=== PATIENT | male | born 1955 | race Two or more races ===

== ENCOUNTER 2019-12-27 03:55 | Inpatient (IN) | payer MEDICAID ==
[2019-12-27] VITALS (57 sets, daily range): BP systolic 74–127; BP diastolic 34–71
[~2019-12-27] VITALS: Ht 167.6 cm; Wt 111.6 kg
--- NOTE | 2019-12-27 04:00 | NUR ---
ED Nurse Note: Pt brought in by [facility] from [facility], staff reports pt with increased altered mental status as well as respiratory distress, pt usually not on O2, pt found spo2 86% on RA. Pt placed on 15L NON REBREATHER, ERMD at bedside, pt placed on electronic device monitor. ERMD placing R IJ triple lumen catheter, pt tolerated well, IV fluids uinfusing per order, pt placed in trendelenburg per ERMD, Pt with indwelling blue from facility, 18G L AC from [facility] patent. Will continue to monitor
[2019-12-27] MEDS ORDERED: Levophed 4mg/4mL Inj IV ONE ×2 (04:07→16:00)
[2019-12-27] MEDS ORDERED: PANTOPRAZOLE SO20 MG ORAL (04:21)
[2019-12-27] MEDS ORDERED: GLUCERNA1 EACH PO (04:21)
[2019-12-27] MEDS ORDERED: ACETAMINOPHEN500 M3 ORAL (04:21)
[2019-12-27] MEDS ORDERED: QUINAPRIL HCL40 MG PO (04:21)
[2019-12-27] MEDS ORDERED: INSULIN CHARG5 UNITS SUBQ (04:21)
[2019-12-27] MEDS ORDERED: ACETAZOLAMIDE125 MG ORAL (04:21)
[2019-12-27] MEDS ORDERED: ACTOS45 MG ORAL (04:21)
[2019-12-27] MEDS ORDERED: AMLODIPINE BES2.5 MG ORAL (04:21)
[2019-12-27] MEDS ORDERED: VITAMIN C250 MG ORAL (04:21)
[2019-12-27] MEDS ORDERED: LIPITOR80 MG ORAL (04:21)
[2019-12-27] MEDS ORDERED: TERAZOSIN HCL2 MG PO (04:21)
[2019-12-27] MEDS ORDERED: ELIQUIS2.5 MG PO (04:21)
[2019-12-27] MEDS ORDERED: ZINC30 M1 ORAL (04:21)
[2019-12-27] MEDS ORDERED: LACTULOSE10 GM/155 PO (04:21)
[2019-12-27] MEDS ORDERED: VITAMIN D310 MCG ORAL (04:21)
[2019-12-27] MEDS ORDERED: JANUVIA100 MG ORAL (04:21)
[2019-12-27] MEDS ORDERED: GLIPIZIDE10 MG PO (04:21)
[2019-12-27] MEDS ORDERED: cefTRIAXone 2 GM in NS 110 ML IV ONE (04:30)
[2019-12-27] MEDS ORDERED: Vancomycin 1 GM in NS 275 ML IV ONE (04:30)
[2019-12-27] MEDS ORDERED: Azithromycin 500 MG in NS 275 ML IV ONE (04:30)
[2019-12-27 04:47] LABS: HEMATOCRIT 41.5 % (42.0-52.0); HEMOGLOBIN 13.7 G/DL (14.2-18.0); MEAN CORPUSCULAR VOLUME 92 FL (80-99); PLATELET COUNT 168 K/UL (150-450); RED BLOOD COUNT 4.51 M/UL (4.70-6.10)
--- NOTE | 2019-12-27 04:48 | Emergency Room Report ---
History of Present Illness General Chief Complaint: Upper Respiratory Illness Source: Patient Present Illness HPI Patient is a 64-year-old male with past medical history of insulin-dependent diabetes, hypertension, lower extremity DVT on Eliquis brought in by ambulance from nursing facility for hypoxia and hypotension. According to EMS, initial blood pressure was 59/32mmHG on scene. Patient was also noted to be hypoxic in the 80s on room air. Patient was last seen normal yesterday at 7 PM. On EMS arrival, patient was placed on nonrebreather facemask with increased oxygenation. Furthermore he was given a NS 400 cc bolus with increase of blood pressure Patient remains ANO x1 only According to EMS, patient was recently diagnosed with COVID pneumonia at [facility]. History is limited secondary to patient's clinical status The patient's symptoms were gradual onset, severity was moderate, duration since 2 WEEKS. Past medical history: DMII, LE DVT, HTN, HLD, COVID-19 Past surgical history: UNABLE TO OBTAIN Smoking: UNABLE TO OBTAIN Alcohol use: UNABLE TO OBTAIN Drug use: UNABLE TO OBTAIN Review of systems: UNABLE TO OBTAIN 14 point Review of Systems is otherwise negative except per HPI Physical Exam: GENERAL: Awake_alert_ toxic, SEVERE acute distress Spo2 80% on RA -ABNORMAL EYES: Extraocular muscles are intact. Conjunctivae clear. Lids without swelling ENT: External nose and ear normal_in_appearance. Oropharynx clear. Head_ atraumatic, Moist_oral_mucosa NECK: No JVD. No meningismus. No thyromegaly. Supple. Trachea midline RESP: Increased respiratory effort. Tachypnea. Symmetric rise. No stridor. Course breath sounds bilaterally CARDIAC: Tachycardic. Regular rhythm on_auscultation No_significant pedal edema. BLE venous stasis ABDOMEN: Soft. obese. Nondistended. Nontender_No_rebound_or_guarding. No pulsatile mass Indwelling blue. No urine MSK: Normal muscle tone, without rigidity. Extremities without asymmetric deformity or swelling. SKIN: Warm and dry. No visible cyanosis or pallor NEUROLOGIC: Alert, oriented x1. Motor_and_sensation_grossly_intact. No truncal ataxia. Gait_normal Psych: Normal mood and affect, normal judgment and insight - COORDINATION OF CARE Case was discussed with: Patient , Patient's Physician Any labs and imaging that were ordered were interpreted as part of the medical decision making: Medical Decision Making/Plan: Differential includes COVID pneumonia, bronchitis, CHF, pulmonary edema, pulmonary embolism, pleural effusion among others. Patient is chronically ill-appearing. Hypotensive. Hypoxic on room air. Bedside echocardiogram shows depressed ejection fraction. No cardiac tamponade. No RV dilation or septal bowing to indicate massive PE. No AAA or aortic dissection on gross exam. Accu-Chek was within normal limits. Exam is limited secondary to patient's altered mental status. He is grossly neuro intact and moving all extremities. I did review patient's previous medical records that EMS brought from the nursing home [facility] He was hospitalized for acute hypoxic respiratory failure with severe COVID-19 pneumonia. He was also noted to have an STEMI type I versus type II and placed on heparin drip. Last COVID test on 12/08/2019 was positive Last creatinine level on 12/21/2019 was 1.8 Due to hypotension and presumed dehydration, patient was given another NS 400 cc bolus to reach euvolemia. Due to COVID positive diagnosis, the goal will be to keep the patient euvolemic. Patient has refused septic NS 30 cc/kg bolus due to hx of COVID pneumonia. Right IJ central line was placed for administration of Levophed vasopressor. Emergent consent was obtained. Laboratory evaluation is concerning for leukocytosis of 16and new onset renal failure with creatinine of 9.6 today. Last creatinine on file was 1.8 six days ago. BNP is also elevated at 1921. Due to septic shock, patient is unable to be diuresed. Troponin is 0.079. Suspect global hypoperfusion 2/2 NSTEMI. Rectal aspirin was given. Doubt massive PE as EKG has no R sided heart strain. Initial EKG showed sinus tachycardia with lots of artifact in lead III. No acute ST elevation AK is identified. No reciprocal changes. A repeat EKG performed within 40 minutes again shows nonspecific ST changes with Q waves in the inferior leads. Again no acute STEMI is identified. CXR shows vascular congestion, interstitial edema and L lobar pneumonia. Seems to be consistent with pneumonia with possible concomitant CHF. Based on [the patients PSI/PORT score], has high enough mortality risk that inpatient admission for IV antibiotics and clinical observation is most appropriate. Will admit to ICU Dr Mendoza At the time of admission, patient was weaned down to 6L NC. Furthermore, his BP and therefore his mental status have improved drastically here. - CRITICAL CARE TIME - I spent 120 minutes of critical care time. This time excludes any separately billable procedures. Organ systems at risk include: Pulmonary / respiratory Treatments/Evaluations: Emergent and rapid respiratory assessment and management with continuous monitoring. Advanced airway equipment at the ready, while the patient's respiratory symptoms were stabilized. Given the patients presentation with pneumonia with hypoxic respiratory failure , there existed the potential for imminent deterioration in the patient's condition due to respiratory compromise. Organ systems at risk for failure without immediate intervention include pulmonary / respiratory. This time was spent reviewing the patients records, reviewing vital signs, reassessing the patients clinical status, discussing the case and care with staff and consultants, and performing high-complexity medical decision making. I considered the possibility of Bipap vs intubation , but at this time the patient is protecting their airway and maintaining their saturation on supplemental oxygen so will defer intubation at this time, although they will be closely monitored for any further deterioration. 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 COVID-19 Screening: Positive COVID-19 COVID-19 Testing Source: meter changes records clerk Nursing Documentation-PMH Hx Cardiac Problems: Yes - DVT; cardiomyopathy Hx Hypertension: Yes Hx Diabetes: Yes Physical Exam Vital Signs Date Time Temp Pulse Resp B/P (MAP) Pulse Ox O2 Delivery O2 Flow Rate FiO2 12/27/19 03:47 100 22 84/59 (67) 95 Non-Rebreather 15.0 Sp02 EP Interpretation: reviewed, normal Medical Decision Making Diagnostic Impression: Primary Impression: Pneumonia due to COVID-19 virus Additional Impressions: Lobar pneumonia Septic shock NSTEMI (non-ST elevated myocardial infarction) Renal failure Hyponatremia CHF (congestive heart failure) HTN (hypertension) HLD (hyperlipidemia) Diabetes Obesity Sepsis with acute hypoxic respiratory failure EKG Diagnostic Results CANDIS Scribnikole Text 12-lead EKG (interpreted by me) Time: 0 356 Indication: Rhythm analysis Tracing visualized and Interpreted by me. Rhythm: Sinus tachycardia Rate: 111 bpm QTc: 416 Morphology: Nonspecific Impression: Nonspecific ST changes in lead III. Q waves in inferior leads. T wave inversion in lead V1. No acute ST elevation AK 12-lead EKG (interpreted by me) Time: 0 435 Indication: Rhythm analysis Tracing visualized and Interpreted by me. Rhythm: Sinus tachycardia Rate: 103 bpm QTc: 427 Morphology: Nonspecific Impression: Nonspecific ST changes in lead III. Q waves in inferior leads. T wave inversion in lead V1. No acute ST elevation AK Rhythm Strip Diag. Results Rhythm Strip Time: 03:56 EP Interpretation: yes Rhythm: NSR, no PVC's, no ectopy Chest X-Ray Diagnostic Results Chest X-Ray Diagnostic Results : CANDIS Ramirez Text Chest X-Ray: Views: Portable 1 view(s) Indication: Sepsis, pneumonia] Findings: Cardiomegaly, diffuse bilateral interstitial edema, pulmonary vascular congestion Impression: Cardiomegaly versus COVID-19, R IJ no pneuothorax The X-ray(s) were independently viewed and interpreted contemporaneously Electronically signed by Sil berman DO Reevaluation Time: 05:35 Last Vital Signs Date Time Temp Pulse Resp B/P (MAP) Pulse Ox O2 Delivery O2 Flow Rate FiO2 /16/20 03:58 100 22 89/50 (63) 95 Non-Rebreather 15.0 Status: improved Disposition: ADMITTED INPATIENT Admit Decision Time: 05:00 Condition: Critical Referrals: NOT CHOSEN IPA/,REFERRING (PCP) Sil Lizama D.O. Dec 27, 2019 04:48
[2019-12-27 05:08] LABS: ANION GAP 13 mmol/L (5-15); BLOOD UREA NITROGEN 176 mg/dL (7-18); CALCIUM 8.8 MG/DL (8.5-10.1); CARBON DIOXIDE 21 MMOL/L (21-32); CHLORIDE 96 MMOL/L (98-107); CREATININE 9.6 MG/DL (0.55-1.30); POTASSIUM 4.2 MMOL/L (3.5-5.1); SODIUM 130 MMOL/L (136-145)
[2019-12-27 05:12] LABS: ALANINE AMINOTRANSFERASE 43 U/L (12-78); ALBUMIN/GLOBULIN RATIO 0.4 (1.0-2.7); ALKALINE PHOSPHATASE 85 U/L (46-116); ASPARTATE AMINO TRANSFERASE 30 U/L (15-37); BILIRUBIN,DIRECT 0.5 MG/DL (0.0-0.3); BILIRUBIN,TOTAL 1.1 MG/DL (0.2-1.0); PHOSPHORUS 9.1 MG/DL (2.5-4.9)
[2019-12-27] MEDS ORDERED: dexAMETHasone 10mg/ml Inj IV ONE (05:15)
[2019-12-27 06:06] LABS: APPEARANCE,URINE CLOUDY; BILIRUBIN, URINE NEGATIVE (NEGATIVE); COLOR,URINE YELLOW; GLUCOSE, URINE (UA) 2+ (NEGATIVE); KETONES,URINE NEGATIVE (NEGATIVE); NITRITE,URINE NEGATIVE (NEGATIVE); PROTEIN,URINE 1+ (NEGATIVE)
[2019-12-27 06:07] LABS: LEUKOCYTE ESTERASE ,URINE 1+ (NEGATIVE); UROBILINOGEN,URINE NORMAL MG/DL (0.0-1.0)
--- NOTE | 2019-12-27 06:22 | NUR ---
NURSE NOTES: Called Dr. Mendoza and left message regarding admission orders.
--- NOTE | 2019-12-27 06:23 | NUR ---
NURSE NOTES: Alison GEORGE RN called to give report. awaiting pt arrival.
--- NOTE | 2019-12-27 06:26 | Diagnostic Imaging Report ---
EXAM: XR Chest, 1 View CLINICAL HISTORY: SOB TECHNIQUE: Frontal view of the chest. COMPARISON: No relevant prior studies available. FINDINGS: Lungs: Patchy bilateral airspace opacities concerning for pneumonia in the appropriate clinical setting. Pleural space: No pleural effusion. No pneumothorax. Heart: Unremarkable. No cardiomegaly. Bones/joints: Unremarkable. Tubes, lines and devices: Right IJ central line terminates within the distal SVC. IMPRESSION: 1. Right IJ central line terminates within the distal SVC. 2. Patchy bilateral airspace opacities concerning for pneumonia in the appropriate clinical setting.
--- NOTE | 2019-12-27 06:40 | NUR ---
NURSE NOTES: pt brought up by ER. Pt is lethargic upon admission, arousal to light tactile stimuli. pt is connected to radiation monitor showing sinus tach. pt is on non rebreather 12L sating at 98% O2, no other acute resp distress noted. bed is low, locked, armed, call light within easy reach, bed rails up times 3. 18 G IV noted L AC, Central line R IJ noted running levo 15MCS.
--- NOTE | 2019-12-27 06:40 | NUR ---
TRANSFER TO FLOOR: Patient transferred to as ordered, per Dr Mendoza. Report given to CHRISTINA Umana. Belongings and medications given to . Family and or S/O informed of transfer.
--- NOTE | 2019-12-27 06:56 | NUR ---
NURSE NOTES: Doctor Mendoza called back to give admitting orders.
[2019-12-27] MEDS ORDERED: Acetaminophen 500mg (ES) tab ORAL PRN (07:00)
--- NOTE | 2019-12-27 07:20 | NUR ---
NURSE HAND-OFF REPORT: Latest Vital Signs: Temperature 97.7 , Pulse 102 , B/P 107 /55 , Respiratory Rate 22 , O2 SAT 99 , Non-Rebreather, O2 Flow Rate 6.0 . Vital Sign Comment: [STABLE ] EKG Rhythm: ST Rhythm change?: NO MD Notified?: - MD Response: Latest Cook Fall Score: Fall Risk: Safety Measures: Call light , Bed Alarm , Side Rails , Bed position . Fall Precautions: BED RAILS UP TIMES 3, BED ARMED, LOCKED. Report given to [MICHELLE GARCIA RN].
--- NOTE | 2019-12-27 07:30 | NUR ---
NURSE NOTES: Patient received by Mannie VASQUEZ. Patient stable at this time with VS 95/57 HR 103 RR 20 on NRB 15L o2 100% and T 97.8F. Patient AOx1 to self. Able to say his name but cannot answer further questions. RR even and unlabored. No s/sx of distress or pain. FLACC 0. Pupils HEATHER at 3. Triple lumen cath dressing to be changed today but patent and intact. Levophed infusing at 20mcg and Cardiac sounds normal. Pulmonary sounds diminished but when coughs sounds rhonchus. GI sounds normoactive. Parker draining yellow urine at 50mLs per hour. Unable to assess strength. Radial pulses bounding. Pedal pulses weak with LT leg pitting edema +2 and RT leg edema +1. Also noted purple discoloration to LT calf reaching ankle. Side rails upx3, call light within reach bed low and locked. Will continue to monitor.
--- NOTE | 2019-12-27 07:42 | NUR ---
NURSE NOTES: Called and left a note a message to Dr Morales regarding Levophed order. No response from Dr Morales yet. Levophed bag from ER was empty. New Levophed was overridden by charge nurse and continued at 20mcg/min. Will call Dr Morales again for Levophed order.
--- NOTE | 2019-12-27 08:00 | NUR ---
NURSE NOTES: Called Dr. Ash and per voicemail, Dr. Vinson covering. Contacted Dr. Vinson and received orders. Will contact Dr. Morales for Levophed order.
--- NOTE | 2019-12-27 08:33 | NUR ---
NURSE NOTES: Called and left a message to Dr Null regarding ABG result. Awaiting call back for new orders. RT place Ventri mask 55% 14L on the patient. Addendum: 12/27/19 at 1522 by MICHELLE BLANCHARD RN RN NURSE NOTES: Called and left a message to Dr Null regarding ABG result. Awaiting call back for new orders. RT placed Ventri mask 55% 14L on the patient.
[2019-12-27] MEDS ORDERED: Sodium Bicarbonate 50ml Carp IV SCH (08:45)
[2019-12-27] MEDS ORDERED: Norepinephrine Bitartrate 8 MG in D5W 500ml 550 ML IV SCH (09:00)
--- NOTE | 2019-12-27 09:21 | Diagnostic Imaging Report ---
EXAM: XR Chest, 1 View CLINICAL HISTORY: SOB TECHNIQUE: Frontal view of the chest. COMPARISON: No relevant prior studies available. FINDINGS/IMPRESSION: Right IJ central venous catheter terminates in the superior vena cava. Patchy airspace opacity throughout the left lower lung field, consistent with infiltrate. Follow-up chest radiograph recommended. No pleural effusion or pneumothorax. Cardiomegaly.
[2019-12-27] MEDS ORDERED: Pantoprazole Inj IVP SCH (10:00)
[2019-12-27] MEDS: Eliquis 2.5mg tablet ORAL SCH ×2 (10:00→18:15)
--- NOTE | 2019-12-27 10:03 | NUR ---
NURSE NOTES: Bicarbonate pushed. Both syringes separately scanned and given but after administration it was noted that one syringe said 7.5% and the other 8.4%. Pharmacy called and notified and stated that both concentrations do scan under same order. Also stated that there had been a shortage of the 8.4% and 7.5% ordered as backup.
--- NOTE | 2019-12-27 10:27 | Critical Care Progress Note ---
Assessment/Plan Assessment/Plan Impression Multifocal pneumonia Hypoxemic respiratory failure Toxic metabolic encephalopathy Leukocytosis Metabolic acidosis Acidemia Hyponatremia Acute on chronic renal failure Severe protein calorie malnutrition Elevated troponin, possible non-STEMI Plan IV hydration Renal evaluation Empiric antibiotics Titrate oxygen Arterial gases noted Bicarb infusion Monitor for aspiration medications/laboratory data/nursing notes/ICU care reviewed in detail note reviewed and edited care discussed with RN and RT ICU time spent >40 minutes Critical Care - Subjective Interval Events: Has to follow-up for pulmonary. Patient with reduced mental status and hypotension Patient with high oxygen need ROS Limited/Unobtainable: Yes Condition: critical EKG Rhythm: Sinus Tachycardia Critical Care - Objective CXR: FINDINGS/IMPRESSION: Right IJ central venous catheter terminates in the superior vena cava. Patchy airspace opacity throughout the left lower lung field, consistent with infiltrate. Follow-up chest radiograph recommended. No pleural effusion or pneumothorax. Cardiomegaly. Last 24 Hour Vital Signs Date Time Temp Pulse Resp B/P (MAP) Pulse Ox O2 Delivery O2 Flow Rate FiO2 12/27/19 10:00 102 22 107/55 (72) 99 12/27/19 09:30 102 22 107/55 (72) 99 12/27/19 09:00 102 22 107/55 (72) 99 12/27/19 09:00 100 Venturi Mask 14.0 55 12/27/19 08:30 55 12/27/19 08:30 102 22 107/55 (72) 99 12/27/19 08:00 102 22 107/55 (72) 99 12/27/19 07:42 88/54 12/27/19 07:30 102 22 107/55 (72) 99 12/27/19 07:00 97.7 104 23 82/44 (57) 100 12/27/19 06:40 97.7 102 22 107/55 (72) 99 12/27/19 06:40 98.8 106 18 106/72 99 Non-Rebreather 6.0 12/27/19 06:29 12.0 12/27/19 06:15 98.6 108 26 110/68 100 Non-Rebreather 6.0 12/27/19 05:19 68/50 12/27/19 05:15 98.8 110 26 101/61 100 Non-Rebreather 15.0 12/27/19 05:00 98.8 104 22 91/48 100 Non-Rebreather 15.0 12/27/19 04:45 98.8 108 22 81/45 100 Non-Rebreather 15.0 12/27/19 04:30 98.8 102 22 74/40 98 Non-Rebreather 15.0 12/27/19 04:15 98.8 100 22 76/34 98 Non-Rebreather 15.0 12/27/19 04:00 98.8 106 22 89/50 100 Non-Rebreather 15.0 12/27/19 04:00 100 22 Non-Rebreather 15.0 12/27/19 03:58 100 22 89/50 (63) 95 Non-Rebreather 15.0 12/27/19 03:47 100 22 84/59 (67) 95 Non-Rebreather 15.0 Labs: Laboratory Tests Test 12/27/19 03:50 12/27/19 04:28 12/27/19 05:30 12/27/19 08:19 White Blood Count 16.0 K/UL (4.8-10.8) H Red Blood Count 4.51 M/UL (4.70-6.10) L Hemoglobin 13.7 G/DL (14.2-18.0) L Hematocrit 41.5 % (42.0-52.0) L Mean Corpuscular Volume 92 FL (80-99) Mean Corpuscular Hemoglobin 30.4 PG (27.0-31.0) Mean Corpuscular Hemoglobin Concent 33.0 G/DL (32.0-36.0) Red Cell Distribution Width 13.0 % (11.6-14.8) Platelet Count 168 K/UL (150-450) Mean Platelet Volume 7.9 FL (6.5-10.1) Neutrophils (%) (Auto) % (45.0-75.0) Lymphocytes (%) (Auto) % (20.0-45.0) Monocytes (%) (Auto) % (1.0-10.0) Eosinophils (%) (Auto) % (0.0-3.0) Basophils (%) (Auto) % (0.0-2.0) Differential Total Cells Counted 100 Neutrophils % (Manual) 91 % (45-75) H Lymphocytes % (Manual) 2 % (20-45) L Monocytes % (Manual) 7 % (1-10) Eosinophils % (Manual) 0 % (0-3) Basophils % (Manual) 0 % (0-2) Band Neutrophils 0 % (0-8) Platelet Estimate Adequate Platelet Morphology Normal Prothrombin Time 11.5 SEC (9.30-11.50) Prothromb Time International Ratio 1.0 (0.9-1.1) Activated Partial Thromboplast Time 29 SEC (23-33) Sodium Level 130 MMOL/L (136-145) L Potassium Level 4.2 MMOL/L (3.5-5.1) Chloride Level 96 MMOL/L (98-107) L Carbon Dioxide Level 21 MMOL/L (21-32) Anion Gap 13 mmol/L (5-15) Blood Urea Nitrogen 176 mg/dL (7-18) H Creatinine 9.6 MG/DL (0.55-1.30) H Estimat Glomerular Filtration Rate 5.5 mL/min (>60) Glucose Level 194 MG/DL (74-106) H Lactic Acid Level 1.00 mmol/L (0.4-2.0) Calcium Level 8.8 MG/DL (8.5-10.1) Phosphorus Level 9.1 MG/DL (2.5-4.9) H Magnesium Level 2.9 MG/DL (1.8-2.4) H Total Bilirubin 1.1 MG/DL (0.2-1.0) H Direct Bilirubin 0.5 MG/DL (0.0-0.3) H Aspartate Amino Transf (AST/SGOT) 30 U/L (15-37) Alanine Aminotransferase (ALT/SGPT) 43 U/L (12-78) Alkaline Phosphatase 85 U/L (46-116) Troponin I 0.079 ng/mL (0.000-0.056) Pro-B-Type Natriuretic Peptide 1921 pg/mL (0-125) H Total Protein 7.2 G/DL (6.4-8.2) Albumin 2.0 G/DL (3.4-5.0) L Globulin 5.2 g/dL Albumin/Globulin Ratio 0.4 (1.0-2.7) L Lipase 374 U/L (73-393) Arterial Blood pH 7.292 (7.350-7.450) 7.244 (7.350-7.450) Arterial Blood Partial Pressure CO2 35.0 mmHg (35.0-45.0) 41.6 mmHg (35.0-45.0) Arterial Blood Partial Pressure O2 138.4 mmHg (75.0-100.0) H 137.7 mmHg (75.0-100.0) H Arterial Blood HCO3 16.5 mmol/L (22.0-26.0) *L 17.6 mmol/L (22.0-26.0) *L Arterial Blood Oxygen Saturation 98.3 % (95-100) 98.3 % (95-100) Arterial Blood Base Excess -9.0 (-2-2) L -9.3 (-2-2) *L Vinay Test Positive Positive Urine Color Yellow Urine Appearance Cloudy Urine pH 5.0 (4.5-8.0) Urine Specific [place] 1.025 (1.005-1.035) Urine Protein 1+ (NEGATIVE) H Urine Glucose (UA) 2+ (NEGATIVE) H Urine Ketones Negative (NEGATIVE) Urine Blood 4+ (NEGATIVE) H Urine Nitrite Negative (NEGATIVE) Urine Bilirubin Negative (NEGATIVE) Urine Urobilinogen Normal MG/DL (0.0-1.0) Urine Leukocyte Esterase 1+ (NEGATIVE) H Urine RBC 40-60 /HPF (0 - 0) H Urine WBC 15-20 /HPF (0 - 0) H Urine Squamous Epithelial Cells Occasional /LPF Urine Amorphous Sediment Few /LPF (NONE) H Urine Bacteria Moderate /HPF (NONE) H Urine Hyaline Casts 2-4 /LPF (NONE) H Urine Mucus Moderate /LPF (NONE/OCC) H Objective: Ill-appearing On facemask oxygen Reduced mental status Lungs with coarse breath sounds Cardiac exam with mild tachycardia no clear murmurs rubs or gallops Abdomen soft obese nontender Extremities with mild edema no cyanosis or clubbing Neurologically with reduced mental status Micro: Microbiology Date/Time Source Procedure Growth Status 12/27/19 04:45 Nasopharynx SARS-CoV-2 RdRp Gene Assay - Final Complete Accucheck: 191 Bam Vinson MD Dec 27, 2019 10:27
--- NOTE | 2019-12-27 11:38 | Consultation ---
Consult Note Consult Note Asked to evaluate the patient at the request of Dr. Hartley for renal failure Patient seen in ICU. Discussed with RN, with family, Patient on pressors has a Parker catheter and has 50 cc an hour urine output Patient on Venturi mask Emergency room note: Patient is a 64-year-old male with past medical history of insulin-dependent diabetes, hypertension, lower extremity DVT on Eliquis brought in by ambulance from nursing facility for hypoxia and hypotension. According to EMS, initial blood pressure was 59/32mmHG on scene. Patient was also noted to be hypoxic in the 80s on room air. Patient was last seen normal yesterday at 7 PM. On EMS arrival, patient was placed on nonrebreather facemask with increased oxygenation. Furthermore he was given a NS 400 cc bolus with increase of blood pressure Patient remains ANO x1 only According to EMS, patient was recently diagnosed with COVID pneumonia at [facility]. History is limited secondary to patient's clinical status The patient's symptoms were gradual onset, severity was moderate, duration since 2 WEEKS. Past medical history: DMII, LE DVT, HTN, HLD, COVID-19 Past surgical history: UNABLE TO OBTAIN Smoking: UNABLE TO OBTAIN Alcohol use: UNABLE TO OBTAIN Drug use: UNABLE TO OBTAIN Patient examined Data reviewed PHYSICAL EXAMINATION: VITAL SIGNS: Temperature 97.7, pulse 102, blood pressure 77/46. HEAD AND NECK: Getting oxygen by mask. HEART: Tachycardic. Has right IJ central line. LUNGS: Have decreased sounds. ABDOMEN: Soft. EXTREMITIES: Have no edema. LABORATORY AND DIAGNOSTIC DATA: Sodium 130, potassium 4.2, chloride 96, bicarb 21, BUN is 176, creatinine 9.6, glucose 194. Lactic acid is 1. Troponin is 0.079. Albumin is 2. Bilirubin 1.1. UA showed rbc of 40 to 60, wbc of 15 to 20. Blood gas showed pH of 7.244, pCO2 41.6, pO2 137. WBC 16, hemoglobin 13.7, hematocrit 41.5, platelet is 162. Rapid COVID test was negative. Chest x-ray showed left lung pneumonia and cardiomegaly. . Assessment/Plan [id number]- I spent an additional 36 minutes on review of medical records including prior hospital records,consult notes, progress notes, procedures ,imaging labs, hemodynamics, and other clinical documentation. Over 35 min Acute renal failure Hypoxia, pneumonia due to COVID-19 Septic shock on pressors Non-STEMI AL Story of congestive heart failure Story of hypertension, currently hypotensive on pressors Diabetes mellitus History of obesity Suggestions: Patient has reasonable urine output at this time Remains on pressors We will adjust IV fluid, will check chemistry panel. If the patient gets to be hemodynamically stable and no improvement in renal parameters will attempt dialysis. Discussed with family and consent for Non tunneled catheter insertion obtained Discussed with RN Per orders I spent an additional 36 minutes on review of medical records including prior hospital records,consult notes, progress notes, procedures ,imaging labs, hemodynamics, and other clinical documentation. Over 35 min Desmond Markham MD Dec 27, 2019 11:38
--- NOTE | 2019-12-27 11:47 | Consultation ---
History of Present Illness General Date patient seen: Dec 27, 2019 Chief Complaint: Upper Respiratory Illness Present Illness HPI 64 year old male recently diagnosed COVID at outside facility [place] [facility] [place]. Admitted to ICU for care and management. On admission septic with leukocytosis, acute renal insufficiency on pressors in critical condition. BUN/CR noted. blue upon admission and currently 50cc/hr uop. surgery called to evaluate and assist with care. patient consideration for HD catheter insertion for possible HD. care discussed with team and nursing staff. family at bedside and plan discussed and consent for HD catheter / HD obtained in person after care plan discussed. Allergies: Coded Allergies: PENICILLINS (Verified Allergy, Unknown, 12/27/19) Medication History Scheduled Acetaminophen* (Acetaminophen Extra Strength*), 500 MG ORAL Q6H, (Reported) Acetazolamide (Acetazolamide), 250 MG ORAL FOUR TIMES A DAY, (Reported) Amlodipine Besylate* (Amlodipine Besylate*), 2.5 MG ORAL DAILY, (Reported) Ascorbic Acid* (Vitamin C*), 250 MG ORAL DAILY, (Reported) Atorvastatin (Lipitor), 80 MG ORAL BEDTIME, (Reported) Glipizide (Glipizide), 10 MG PO BID, (Reported) Lactulose (Lactulose), 30 ML PO BID, (Reported) Pantoprazole (Pantoprazole), 40 MG ORAL EVERY 12 HOURS, (Reported) Pioglitazone Hcl* (Actos*), 45 MG ORAL DAILY, (Reported) Sitagliptin (Januvia), 100 MG ORAL DAILY, (Reported) Miscellaneous Medications Apixaban (Eliquis), 2.5 MG PO, (Reported) Insulin Human NPH (Novolin N), 20 UNITS SUBQ, (Reported) Nut.tx.glucose Intolerance,Soy (Glucerna), 1 EACH PO, (Reported) Quinapril Hcl (Quinapril Hcl), 40 MG PO, (Reported) Terazosin Hcl (Terazosin Hcl), 2 MG PO, (Reported) Vitamin D (Vitamin D3), 800 MCG ORAL, (Reported) Zinc Gluconate-Zinc Picolinate (Zinc), 30 MG ORAL, (Reported) Patient History Limited by: medical condition History Provided By: Family Member, Medical Record, PMD Healthcare decision maker Resuscitation status Advanced Directive on File Past Medical/Surgical History Past Medical/Surgical History: (1) Septic shock (2) Lobar pneumonia (3) Diabetes (4) CHF (congestive heart failure) (5) Hyponatremia (6) Renal failure (7) Obesity (8) HTN (hypertension) (9) HLD (hyperlipidemia) (10) NSTEMI (non-ST elevated myocardial infarction) (11) Sepsis with acute hypoxic respiratory failure (12) Pneumonia due to COVID-19 virus Review of Systems ROS Narrative unable to obtain given current condition Physical Exam General Appearance: mild distress Lines, tubes and drains: peripheral HEENT: anicteric, mucous membranes moist Neck: supple, normal inspection Respiratory/Chest: no accessory muscle use, decreased breath sounds, accessory muscle use, inspiratory wheezing Cardiovascular/Chest: regular rhythm, tachycardia Abdomen: soft, no organomegaly, no mass, other Genitourinary/Rectal: normal rectal exam Extremities: non-tender, normal inspection, non-pitting, slow capillary refill Skin Exam: warm/dry Neurologic: alert Last 24 Hour Vital Signs Date Time Temp Pulse Resp B/P (MAP) Pulse Ox O2 Delivery O2 Flow Rate FiO2 12/27/19 11:06 77/46 12/27/19 10:00 102 22 107/55 (72) 99 12/27/19 09:30 102 22 107/55 (72) 99 12/27/19 09:00 102 22 107/55 (72) 99 12/27/19 09:00 100 Venturi Mask 14.0 55 12/27/19 08:30 55 12/27/19 08:30 102 22 107/55 (72) 99 12/27/19 08:00 102 22 107/55 (72) 99 12/27/19 08:00 Non-Rebreather 15.0 12/27/19 07:42 88/54 12/27/19 07:30 102 22 107/55 (72) 99 12/27/19 07:00 97.7 104 23 82/44 (57) 100 12/27/19 06:40 97.7 102 22 107/55 (72) 99 12/27/19 06:40 98.8 106 18 106/72 99 Non-Rebreather 6.0 12/27/19 06:29 12.0 12/27/19 06:15 98.6 108 26 110/68 100 Non-Rebreather 6.0 12/27/19 05:19 68/50 12/27/19 05:15 98.8 110 26 101/61 100 Non-Rebreather 15.0 12/27/19 05:00 98.8 104 22 91/48 100 Non-Rebreather 15.0 12/27/19 04:45 98.8 108 22 81/45 100 Non-Rebreather 15.0 12/27/19 04:30 98.8 102 22 74/40 98 Non-Rebreather 15.0 12/27/19 04:15 98.8 100 22 76/34 98 Non-Rebreather 15.0 12/27/19 04:00 98.8 106 22 89/50 100 Non-Rebreather 15.0 12/27/19 04:00 100 22 Non-Rebreather 15.0 12/27/19 03:58 100 22 89/50 (63) 95 Non-Rebreather 15.0 12/27/19 03:47 100 22 84/59 (67) 95 Non-Rebreather 15.0 Laboratory Tests Test 12/27/19 03:50 12/27/19 04:28 12/27/19 05:30 12/27/19 08:19 White Blood Count 16.0 K/UL (4.8-10.8) H Red Blood Count 4.51 M/UL (4.70-6.10) L Hemoglobin 13.7 G/DL (14.2-18.0) L Hematocrit 41.5 % (42.0-52.0) L Mean Corpuscular Volume 92 FL (80-99) Mean Corpuscular Hemoglobin 30.4 PG (27.0-31.0) Mean Corpuscular Hemoglobin Concent 33.0 G/DL (32.0-36.0) Red Cell Distribution Width 13.0 % (11.6-14.8) Platelet Count 168 K/UL (150-450) Mean Platelet Volume 7.9 FL (6.5-10.1) Neutrophils (%) (Auto) % (45.0-75.0) Lymphocytes (%) (Auto) % (20.0-45.0) Monocytes (%) (Auto) % (1.0-10.0) Eosinophils (%) (Auto) % (0.0-3.0) Basophils (%) (Auto) % (0.0-2.0) Differential Total Cells Counted 100 Neutrophils % (Manual) 91 % (45-75) H Lymphocytes % (Manual) 2 % (20-45) L Monocytes % (Manual) 7 % (1-10) Eosinophils % (Manual) 0 % (0-3) Basophils % (Manual) 0 % (0-2) Band Neutrophils 0 % (0-8) Platelet Estimate Adequate Platelet Morphology Normal Prothrombin Time 11.5 SEC (9.30-11.50) Prothromb Time International Ratio 1.0 (0.9-1.1) Activated Partial Thromboplast Time 29 SEC (23-33) Sodium Level 130 MMOL/L (136-145) L Potassium Level 4.2 MMOL/L (3.5-5.1) Chloride Level 96 MMOL/L (98-107) L Carbon Dioxide Level 21 MMOL/L (21-32) Anion Gap 13 mmol/L (5-15) Blood Urea Nitrogen 176 mg/dL (7-18) H Creatinine 9.6 MG/DL (0.55-1.30) H Estimat Glomerular Filtration Rate 5.5 mL/min (>60) Glucose Level 194 MG/DL (74-106) H Lactic Acid Level 1.00 mmol/L (0.4-2.0) Calcium Level 8.8 MG/DL (8.5-10.1) Phosphorus Level 9.1 MG/DL (2.5-4.9) H Magnesium Level 2.9 MG/DL (1.8-2.4) H Total Bilirubin 1.1 MG/DL (0.2-1.0) H Direct Bilirubin 0.5 MG/DL (0.0-0.3) H Aspartate Amino Transf (AST/SGOT) 30 U/L (15-37) Alanine Aminotransferase (ALT/SGPT) 43 U/L (12-78) Alkaline Phosphatase 85 U/L (46-116) Troponin I 0.079 ng/mL (0.000-0.056) Pro-B-Type Natriuretic Peptide 1921 pg/mL (0-125) H Total Protein 7.2 G/DL (6.4-8.2) Albumin 2.0 G/DL (3.4-5.0) L Globulin 5.2 g/dL Albumin/Globulin Ratio 0.4 (1.0-2.7) L Lipase 374 U/L (73-393) Arterial Blood pH 7.292 (7.350-7.450) 7.244 (7.350-7.450) Arterial Blood Partial Pressure CO2 35.0 mmHg (35.0-45.0) 41.6 mmHg (35.0-45.0) Arterial Blood Partial Pressure O2 138.4 mmHg (75.0-100.0) H 137.7 mmHg (75.0-100.0) H Arterial Blood HCO3 16.5 mmol/L (22.0-26.0) *L 17.6 mmol/L (22.0-26.0) *L Arterial Blood Oxygen Saturation 98.3 % (95-100) 98.3 % (95-100) Arterial Blood Base Excess -9.0 (-2-2) L -9.3 (-2-2) *L Vinay Test Positive Positive Urine Color Yellow Urine Appearance Cloudy Urine pH 5.0 (4.5-8.0) Urine Specific [place] 1.025 (1.005-1.035) Urine Protein 1+ (NEGATIVE) H Urine Glucose (UA) 2+ (NEGATIVE) H Urine Ketones Negative (NEGATIVE) Urine Blood 4+ (NEGATIVE) H Urine Nitrite Negative (NEGATIVE) Urine Bilirubin Negative (NEGATIVE) Urine Urobilinogen Normal MG/DL (0.0-1.0) Urine Leukocyte Esterase 1+ (NEGATIVE) H Urine RBC 40-60 /HPF (0 - 0) H Urine WBC 15-20 /HPF (0 - 0) H Urine Squamous Epithelial Cells Occasional /LPF Urine Amorphous Sediment Few /LPF (NONE) H Urine Bacteria Moderate /HPF (NONE) H Urine Hyaline Casts 2-4 /LPF (NONE) H Urine Mucus Moderate /LPF (NONE/OCC) H Test 12/27/19 11:00 Troponin I Pending Microbiology Date/Time Source Procedure Growth Status 12/27/19 04:45 Nasopharynx SARS-CoV-2 RdRp Gene Assay - Final Complete Height (Feet): 5 Height (Inches): 6.00 Weight (Pounds): 180 Medications Current Medications Medications (Trade) Dose Ordered Sig/Susana Route PRN Reason Start Time Stop Time Status Last Admin Dose Admin Acetaminophen (Tylenol) 500 mg Q4H PRN ORAL Mild Pain (Pain Scale 1-3) 12/27/19 07:00 01/26/20 06:59 Apixaban (Eliquis) 2.5 mg BID ORAL 12/27/19 10:00 03/26/20 09:59 Levofloxacin 100 ml @ 100 mls/hr Q48H IVPB 12/27/19 12:30 01/03/20 12:29 Norepinephrine Bitartrate 8 mg/ Dextrose 558 ml @ 0 mls/hr Q24H IV 12/27/19 09:00 01/26/20 08:29 12/27/19 11:06 Pantoprazole (Protonix) 40 mg DAILY IVP 12/28/19 09:00 01/27/20 08:59 Vancomycin HCl (Vanco pharmacy to dose) 1 ea DAILY PRN MISC Per rx protocol 12/27/19 10:30 01/26/20 10:29 UNV Assessment/Plan Problem List: (1) Septic shock Assessment & Plan: 64M septic shock respiratory insufficiency, leukocytosis, abnormal labs, acute renal insufficiency. uop 50cc/hr currently on pressors in critical condition patient may need HD soon but currently too unstable on pressors to tolerate HD discussed with renal and nursing staff hold on HD line until more stable to receive HD consent obtained from family will monitor closely thank you trend labs wean pressors respiratory support Right IJ central venous catheter terminates in the superior vena cava. Patchy airspace opacity throughout the left lower lung field, consistent with infiltrate. Follow-up chest radiograph recommended. No pleural effusion or pneumothorax. ICD Codes: A41.9 - Sepsis, unspecified organism; R65.21 - Severe sepsis with septic shock SNOMED: 22509085, 799645225, 336124910 (2) Lobar pneumonia ICD Codes: J18.1 - Lobar pneumonia, unspecified organism SNOMED: 009876001, 170789879, 567227215 (3) Diabetes ICD Codes: E11.9 - Type 2 diabetes mellitus without complications SNOMED: 54420529, 134302597, 758479301 (4) CHF (congestive heart failure) ICD Codes: I50.9 - Heart failure, unspecified SNOMED: 02907074, 186827152, 047964154 (5) Hyponatremia ICD Codes: E87.1 - Hypo-osmolality and hyponatremia SNOMED: 39100927, 839423108, 946081331 (6) Renal failure ICD Codes: N19 - Unspecified kidney failure SNOMED: 75832591, 872654108, 301736203 (7) Obesity ICD Codes: E66.9 - Obesity, unspecified SNOMED: 014348222, 566045364, 174910058 (8) HTN (hypertension) ICD Codes: I10 - Essential (primary) hypertension SNOMED: 60870279, 685032198, 513347998 (9) HLD (hyperlipidemia) ICD Codes: E78.5 - Hyperlipidemia, unspecified SNOMED: 40530557, 568671420, 150229638 (10) NSTEMI (non-ST elevated myocardial infarction) ICD Codes: I21.4 - Non-ST elevation (NSTEMI) myocardial infarction SNOMED: 37682815, 679413216, 401941419 (11) Sepsis with acute hypoxic respiratory failure ICD Codes: A41.9 - Sepsis, unspecified organism; R65.20 - Severe sepsis without septic shock; J96.01 - Acute respiratory failure with hypoxia SNOMED: 197894963, 47103581, 452870107 (12) Pneumonia due to COVID-19 virus ICD Codes: U07.1 - COVID-19; J12.89 - Other viral pneumonia; J96.01 - Acute respiratory failure with hypoxia SNOMED: 501444593, 539209454, 928222651 Collins Ford Dec 27, 2019 11:47
--- NOTE | 2019-12-27 11:52 | NUR ---
NURSE NOTES: Notified Dr Morales that Levo max rate is running. BP 101/59, HR 124. Order for danitza received, noted, and carried out. Also notified Dr Morales regarding EKG result. No orders for that for now.
--- NOTE | 2019-12-27 12:00 | NUR ---
NURSE NOTES: Patient keeps removing Ventri mask and desaturates. Risks explained to the patient and frequent reorientation given. However, patient still keeps removing Ventri mask. Order for restraints from Dr Tiffani Acuna received, noted, and bilateral soft wrist restraints applied.
[2019-12-27 12:53] LABS: ALANINE AMINOTRANSFERASE 37 U/L (12-78); ALBUMIN 1.8 G/DL (3.4-5.0); ALBUMIN/GLOBULIN RATIO 0.4 (1.0-2.7); ALKALINE PHOSPHATASE 93 U/L (46-116); ANION GAP 20 mmol/L (5-15); ASPARTATE AMINO TRANSFERASE 31 U/L (15-37); BILIRUBIN,TOTAL 1.1 MG/DL (0.2-1.0); BLOOD UREA NITROGEN 172 mg/dL (7-18); CALCIUM 8.1 MG/DL (8.5-10.1); CARBON DIOXIDE 20 MMOL/L (21-32); CHLORIDE 95 MMOL/L (98-107); CHOLESTEROL 124 MG/DL (< 200); CREATININE 7.4 MG/DL (0.55-1.30); GAMMA GLUTAMYL TRANSPEPTIDASE 44 U/L (5-85); HDL CHOLESTEROL 38 MG/DL (40-60); LACTATE DEHYDROGENASE 296 U/L (81-234); PHOSPHORUS 9.1 MG/DL (2.5-4.9); SODIUM 135 MMOL/L (136-145); TRIGLYCERIDES 66 MG/DL (30-150)
--- NOTE | 2019-12-27 12:59 | Diagnostic Imaging Report ---
EXAM: XR Abdomen, 2 Views CLINICAL HISTORY: NGT TECHNIQUE: Frontal views of the abdomen. COMPARISON: No relevant prior studies available. FINDINGS: Lower thorax: Lung bases appear clear. Intraperitoneal space: No free air. Gastrointestinal tract: Unremarkable bowel gas pattern. No abnormal distention of large or small bowel loops. No luminal air fluid levels. No evidence of pneumatosis intestinalis. Organs: The renal shadows appear unremarkable. No evidence of organomegaly. No abnormal calcifications in the abdomen or pelvis. Bones/joints: Unremarkable. Tubes, lines and devices: Nasogastric tube tip in the region of the gastric body, with expected positioning. IMPRESSION: Nasogastric tube tip in the region of the gastric body, with expected positioning.
[2019-12-27 13:02] LABS: BILIRUBIN,DIRECT 0.7 MG/DL (0.0-0.3)
[2019-12-27 13:15] LABS: HEMATOCRIT 40.3 % (42.0-52.0); HEMOGLOBIN 13.1 G/DL (14.2-18.0); MEAN CORPUSCULAR VOLUME 94 FL (80-99); PLATELET COUNT 169 K/UL (150-450); WHITE BLOOD COUNT 17.5 K/UL (4.8-10.8)
--- NOTE | 2019-12-27 14:29 | Cardiac Electrophysiology PN ---
Subjective Subjective [id number] Objective Last 24 Hour Vital Signs Date Time Temp Pulse Resp B/P (MAP) Pulse Ox O2 Delivery O2 Flow Rate FiO2 12/27/19 14:00 87/52 12/27/19 13:00 113 28 90/50 (63) 98 12/27/19 13:00 90/51 12/27/19 12:30 103 23 91/54 (66) 98 12/27/19 12:00 117 31 94/59 (71) 98 12/27/19 12:00 Non-Rebreather 15.0 12/27/19 12:00 94/60 12/27/19 11:40 97/67 12/27/19 11:38 108 25 101/59 (73) 97 12/27/19 11:35 127 20 97/67 (77) 97 12/27/19 11:30 102 18 86/56 (66) 97 12/27/19 11:30 85/46 12/27/19 11:25 110 25 90/58 (69) 97 12/27/19 11:25 80/55 12/27/19 11:20 82/48 12/27/19 11:20 112 24 82/48 (59) 97 12/27/19 11:06 77/46 12/27/19 11:05 90/58 12/27/19 11:00 110 22 87/52 (64) 97 12/27/19 11:00 87/52 12/27/19 10:30 105 22 93/58 (70) 99 12/27/19 10:00 102 22 107/55 (72) 99 12/27/19 10:00 102/55 12/27/19 09:30 102 22 107/55 (72) 99 12/27/19 09:00 102 22 107/55 (72) 99 12/27/19 09:00 94/46 12/27/19 09:00 100 Venturi Mask 14.0 55 12/27/19 08:30 55 12/27/19 08:30 102 22 107/55 (72) 99 12/27/19 08:00 102 22 107/55 (72) 99 12/27/19 08:00 103/48 12/27/19 08:00 Non-Rebreather 15.0 12/27/19 07:42 88/54 12/27/19 07:30 102 22 107/55 (72) 99 12/27/19 07:00 97.7 104 23 82/44 (57) 100 12/27/19 06:40 97.7 102 22 107/55 (72) 99 12/27/19 06:40 98.8 106 18 106/72 99 Non-Rebreather 6.0 12/27/19 06:29 12.0 12/27/19 06:15 98.6 108 26 110/68 100 Non-Rebreather 6.0 12/27/19 05:19 68/50 12/27/19 05:15 98.8 110 26 101/61 100 Non-Rebreather 15.0 12/27/19 05:00 98.8 104 22 91/48 100 Non-Rebreather 15.0 12/27/19 04:45 98.8 108 22 81/45 100 Non-Rebreather 15.0 12/27/19 04:30 98.8 102 22 74/40 98 Non-Rebreather 15.0 12/27/19 04:15 98.8 100 22 76/34 98 Non-Rebreather 15.0 12/27/19 04:00 98.8 106 22 89/50 100 Non-Rebreather 15.0 12/27/19 04:00 100 22 Non-Rebreather 15.0 12/27/19 03:58 100 22 89/50 (63) 95 Non-Rebreather 15.0 12/27/19 03:47 100 22 84/59 (67) 95 Non-Rebreather 15.0 Laboratory Tests Test 12/27/19 03:50 12/27/19 04:28 12/27/19 05:30 12/27/19 08:19 White Blood Count 16.0 K/UL (4.8-10.8) H Red Blood Count 4.51 M/UL (4.70-6.10) L Hemoglobin 13.7 G/DL (14.2-18.0) L Hematocrit 41.5 % (42.0-52.0) L Mean Corpuscular Volume 92 FL (80-99) Mean Corpuscular Hemoglobin 30.4 PG (27.0-31.0) Mean Corpuscular Hemoglobin Concent 33.0 G/DL (32.0-36.0) Red Cell Distribution Width 13.0 % (11.6-14.8) Platelet Count 168 K/UL (150-450) Mean Platelet Volume 7.9 FL (6.5-10.1) Neutrophils (%) (Auto) % (45.0-75.0) Lymphocytes (%) (Auto) % (20.0-45.0) Monocytes (%) (Auto) % (1.0-10.0) Eosinophils (%) (Auto) % (0.0-3.0) Basophils (%) (Auto) % (0.0-2.0) Differential Total Cells Counted 100 Neutrophils % (Manual) 91 % (45-75) H Lymphocytes % (Manual) 2 % (20-45) L Monocytes % (Manual) 7 % (1-10) Eosinophils % (Manual) 0 % (0-3) Basophils % (Manual) 0 % (0-2) Band Neutrophils 0 % (0-8) Platelet Estimate Adequate Platelet Morphology Normal Prothrombin Time 11.5 SEC (9.30-11.50) Prothromb Time International Ratio 1.0 (0.9-1.1) Activated Partial Thromboplast Time 29 SEC (23-33) Sodium Level 130 MMOL/L (136-145) L Potassium Level 4.2 MMOL/L (3.5-5.1) Chloride Level 96 MMOL/L (98-107) L Carbon Dioxide Level 21 MMOL/L (21-32) Anion Gap 13 mmol/L (5-15) Blood Urea Nitrogen 176 mg/dL (7-18) H Creatinine 9.6 MG/DL (0.55-1.30) H Estimat Glomerular Filtration Rate 5.5 mL/min (>60) Glucose Level 194 MG/DL (74-106) H Lactic Acid Level 1.00 mmol/L (0.4-2.0) Calcium Level 8.8 MG/DL (8.5-10.1) Phosphorus Level 9.1 MG/DL (2.5-4.9) H Magnesium Level 2.9 MG/DL (1.8-2.4) H Total Bilirubin 1.1 MG/DL (0.2-1.0) H Direct Bilirubin 0.5 MG/DL (0.0-0.3) H Aspartate Amino Transf (AST/SGOT) 30 U/L (15-37) Alanine Aminotransferase (ALT/SGPT) 43 U/L (12-78) Alkaline Phosphatase 85 U/L (46-116) Troponin I 0.079 ng/mL (0.000-0.056) Pro-B-Type Natriuretic Peptide 1921 pg/mL (0-125) H Total Protein 7.2 G/DL (6.4-8.2) Albumin 2.0 G/DL (3.4-5.0) L Globulin 5.2 g/dL Albumin/Globulin Ratio 0.4 (1.0-2.7) L Lipase 374 U/L (73-393) Arterial Blood pH 7.292 (7.350-7.450) 7.244 (7.350-7.450) Arterial Blood Partial Pressure CO2 35.0 mmHg (35.0-45.0) 41.6 mmHg (35.0-45.0) Arterial Blood Partial Pressure O2 138.4 mmHg (75.0-100.0) H 137.7 mmHg (75.0-100.0) H Arterial Blood HCO3 16.5 mmol/L (22.0-26.0) *L 17.6 mmol/L (22.0-26.0) *L Arterial Blood Oxygen Saturation 98.3 % (95-100) 98.3 % (95-100) Arterial Blood Base Excess -9.0 (-2-2) L -9.3 (-2-2) *L Vinay Test Positive Positive Urine Color Yellow Urine Appearance Cloudy Urine pH 5.0 (4.5-8.0) Urine Specific [place] 1.025 (1.005-1.035) Urine Protein 1+ (NEGATIVE) H Urine Glucose (UA) 2+ (NEGATIVE) H Urine Ketones Negative (NEGATIVE) Urine Blood 4+ (NEGATIVE) H Urine Nitrite Negative (NEGATIVE) Urine Bilirubin Negative (NEGATIVE) Urine Urobilinogen Normal MG/DL (0.0-1.0) Urine Leukocyte Esterase 1+ (NEGATIVE) H Urine RBC 40-60 /HPF (0 - 0) H Urine WBC 15-20 /HPF (0 - 0) H Urine Squamous Epithelial Cells Occasional /LPF Urine Amorphous Sediment Few /LPF (NONE) H Urine Bacteria Moderate /HPF (NONE) H Urine Hyaline Casts 2-4 /LPF (NONE) H Urine Mucus Moderate /LPF (NONE/OCC) H Test 12/27/19 11:00 12/27/19 12:00 12/27/19 12:53 Sodium Level 135 MMOL/L (136-145) L Potassium Level 4.0 MMOL/L (3.5-5.1) Chloride Level 95 MMOL/L (98-107) L Carbon Dioxide Level 20 MMOL/L (21-32) L Anion Gap 20 mmol/L (5-15) H Blood Urea Nitrogen 172 mg/dL (7-18) H Creatinine 7.4 MG/DL (0.55-1.30) H Estimat Glomerular Filtration Rate 7.5 mL/min (>60) Glucose Level 313 MG/DL (74-106) #H Hemoglobin A1c 8.7 % (4.3-6.0) H Uric Acid 11.8 MG/DL (2.6-7.2) H Calcium Level 8.1 MG/DL (8.5-10.1) L Phosphorus Level 9.1 MG/DL (2.5-4.9) H Magnesium Level 2.9 MG/DL (1.8-2.4) H Total Bilirubin 1.1 MG/DL (0.2-1.0) H Direct Bilirubin 0.7 MG/DL (0.0-0.3) H Gamma Glutamyl Transpeptidase 44 U/L (5-85) Aspartate Amino Transf (AST/SGOT) 31 U/L (15-37) Alanine Aminotransferase (ALT/SGPT) 37 U/L (12-78) Alkaline Phosphatase 93 U/L (46-116) Lactate Dehydrogenase 296 U/L (81-234) H Troponin I 0.100 ng/mL (0.000-0.056) Total Protein 6.9 G/DL (6.4-8.2) Albumin 1.8 G/DL (3.4-5.0) L Globulin 5.1 g/dL Albumin/Globulin Ratio 0.4 (1.0-2.7) L Triglycerides Level 66 MG/DL (30-150) Cholesterol Level 124 MG/DL (< 200) LDL Cholesterol 73 mg/dL (<100) HDL Cholesterol 38 MG/DL (40-60) L Cholesterol/HDL Ratio 3.3 (3.3-4.4) Thyroid Stimulating Hormone (TSH) 0.174 uiU/mL (0.358-3.740) Urine Random Sodium 34 mmol/L (20-110) White Blood Count 17.5 K/UL (4.8-10.8) H Red Blood Count 4.30 M/UL (4.70-6.10) L Hemoglobin 13.1 G/DL (14.2-18.0) L Hematocrit 40.3 % (42.0-52.0) L Mean Corpuscular Volume 94 FL (80-99) Mean Corpuscular Hemoglobin 30.4 PG (27.0-31.0) Mean Corpuscular Hemoglobin Concent 32.5 G/DL (32.0-36.0) Red Cell Distribution Width 13.0 % (11.6-14.8) Platelet Count 169 K/UL (150-450) Mean Platelet Volume 8.0 FL (6.5-10.1) Neutrophils (%) (Auto) % (45.0-75.0) Lymphocytes (%) (Auto) % (20.0-45.0) Monocytes (%) (Auto) % (1.0-10.0) Eosinophils (%) (Auto) % (0.0-3.0) Basophils (%) (Auto) % (0.0-2.0) Differential Total Cells Counted 100 Neutrophils % (Manual) 95 % (45-75) H Lymphocytes % (Manual) 3 % (20-45) L Monocytes % (Manual) 2 % (1-10) Eosinophils % (Manual) 0 % (0-3) Basophils % (Manual) 0 % (0-2) Band Neutrophils 0 % (0-8) Platelet Estimate Adequate Platelet Morphology Normal Red Blood Cell Morphology Normal Microbiology Date/Time Source Procedure Growth Status 12/27/19 04:45 Nasopharynx SARS-CoV-2 RdRp Gene Assay - Final Complete Agustin Morales MD Dec 27, 2019 14:29
[2019-12-27] MEDS: Aztreonam Inj 0.5 GM in D5W 55 ML IVPB SCH ×2 (14:39→21:16)
--- NOTE | 2019-12-27 14:51 | NUR ---
CASE MANAGEMENT:INITIAL REVIEW 64 YR OLD MALE BIBA FROM [facility] CC;UPPER RESPIRATORY ILLNESS SI;COVID PNEUMONIA. SEPTIC SHOCK. ACUTE HYPOXIC RESP FAILURE. N-STEMI. RENAL FAILURE. 98.8 110 26 96/34 95% 15L NRB FIO2 55% WBC 17.5 NA 130 BUN 176 CR 9.6 PHOS 9.1 MAG 2.9 T-BILI 1.1 TROP 0.100 BNP 1921 ALB 2.0 TSH 0.174 UA+ PROTEIN, GLUCOSE, BLOOD, LEUKOCYTE ESTERASE, RBC, WBC, AMORPHOUS SEDIMENT, BACTERIA, HYALINE CASTS, MUCUS ABG pH 7.244 pO2 137.7 HCO3 17.6 BASE EXCESS -9.3 CXR~1. Right IJ central line terminates within the distal SVC. 2. Patchy bilateral airspace opacities concerning for pneumonia in the appropriate clinical setting. ABD XRAY ~ Nasogastric tube tip in the region of the gastric body, with expected positioning. COVID RAPID ~ NEGATIVE TYPE AND CROSS IS;ASA RECTAL ZITHROMAX IV ROCEPHIN IV VANCOMYCIN IV LEVOPHED IV DECADRON IV Na BICARB IV PROTONIX IV ADMITTED TO ICU ICU STATUS DCP;FROM [facility]
[2019-12-27] MEDS: Phenylephrine 50 MG in D5W 245 ML IV SCH (14:54)
--- NOTE | 2019-12-27 15:09 | NUR ---
NURSE NOTES: Patient reassessed. Awoken by shaking and found to be AOx0 now stating he doesn't know his name. No complaints at this time.
--- NOTE | 2019-12-27 15:22 | NUR ---
NURSE NOTES: SBP in 80's-90. At 1500 BP 90/56. Phenylephrine started at 100mcg/min per protocol. Levophed still at 30mcg/min. IV fluids infusing at this time and antibiotic. BP now 97/53. Will continue to monitor.
--- NOTE | 2019-12-27 15:45 | NUR ---
NURSE NOTES: Dr. Markham called to report labs. Per MD, will check online and call back.
--- NOTE | 2019-12-27 15:55 | NUR ---
NURSE NOTES: Called and left a message to Dr Mendoza regarding elevated glucose and A1C level. Awaiting call back for new orders.
--- NOTE | 2019-12-27 16:08 | NUR ---
NURSE NOTES: One time Levophed 4mg/250ml order was overridden by charge nurse, Christina, since it was not available from pharmacy.
[2019-12-27] MEDS: Renvela 800mg Pkt NG SCH ×2 (16:09→22:14)
--- NOTE | 2019-12-27 16:30 | Consultation ---
DATE OF CONSULTATION: 12/27/2019 INFECTIOUS DISEASES CONSULTATION CONSULTING PHYSICIAN: Claudy Acuna MD PRIMARY ATTENDING PHYSICIAN: Isaías Mendoza MD REASON FOR CONSULTATION: Septic shock, pneumonia. HISTORY OF PRESENT ILLNESS: A 64-year-old male admitted today from a nursing home facility. He was found to have hypotension, hypoxemia. Blood pressure in the facility was 59/32, had respiratory distress, had history of hospitalization in [facility] on 12/08/2019 with COVID-19 disease. After admission, a right IJ line was placed. The patient started on Levophed and he is currently getting maximum dose. PAST MEDICAL HISTORY: Diabetes mellitus, hypertension, DVT of lower extremity, hyperlipidemia, obesity, COVID-19 disease. ALLERGIES: Allergic to penicillin. MEDICATIONS: Getting Protonix, Levaquin, vancomycin, norepinephrine, Tylenol.Get a dose of ceftriaxone and azithromycin. SOCIAL HISTORY: Single, [place] [facility] resident. No other history obtainable by the patient. PHYSICAL EXAMINATION: VITAL SIGNS: Temperature 97.7, pulse 102, blood pressure 77/46. HEAD AND NECK: Getting oxygen by mask. HEART: Tachycardic. Has right IJ central line. LUNGS: Have decreased sounds. ABDOMEN: Soft. EXTREMITIES: Have no edema. LABORATORY AND DIAGNOSTIC DATA: Sodium 130, potassium 4.2, chloride 96, bicarb 21, BUN is 176, creatinine 9.6, glucose 194. Lactic acid is 1. Troponin is 0.079. Albumin is 2. Bilirubin 1.1. UA showed rbc of 40 to 60, wbc of 15 to 20. Blood gas showed pH of 7.244, pCO2 41.6, pO2 137. WBC 16, hemoglobin 13.7, hematocrit 41.5, platelet is 162. Rapid COVID test was negative. Chest x-ray showed left lung pneumonia and cardiomegaly. IMPRESSION: 1. Severe sepsis with septic shock. 2. Pneumonia. 3. Pyuria, may have UTI. 4. Acute renal failure. 5. Hypoxemic respiratory failure. 6. Diabetes. 7. Hypertension. 8. Acidosis. 9. Obesity. RECOMMENDATION: Continue vancomycin and Levaquin. Azactam was added. We will follow up the cultures including sputum culture and blood culture. At the end of my exam, I thank Dr. Mendoza for involving me in the care of this patient. Claudy Acuna M.D. DR: ELLIE JOB#: [id number] CC: MAX
--- NOTE | 2019-12-27 17:15 | Consultation ---
DATE OF CONSULTATION: 12/27/2019 CARDIOLOGY CONSULTATION CONSULTING PHYSICIAN: Agustin Morales MD. REFERRING PHYSICIAN: Isaías Mendoza MD. REASON FOR CONSULTATION: Shock. HISTORY OF PRESENT ILLNESS: Patient is a 64-year-old gentleman with history of hypertension, insulin-dependent diabetes, and lower extremity DVT on Eliquis, brought in by ambulance from intermediate for hypotension and hypoxia. Blood pressure was 59/32 on the scene and saturation was 80% on room air. Patient then received 400 mL of normal saline and was transferred to intensive care unit. Patient was recently diagnosed with COVID pneumonia in the hospital. At the time of my evaluation, the patient is on Levophed drip. Blood pressure is still in 90s and he is on 100 mL an hour normal saline. It is also of note that the patient's BUN was found to be 170, creatinine of 9, and the patient has never been on dialysis. REVIEW OF SYSTEMS: Negative other than what was mentioned in history of present illness. PAST MEDICAL HISTORY: As mentioned above. FAMILY HISTORY: Noncontributory. SOCIAL HISTORY: Unobtainable. PHYSICAL EXAMINATION: VITAL SIGNS: Show blood pressure of 90/50 on Levophed, pulse is 112, respirations 30, and temperature 97.8. HEAD AND NECK: Shows mild JVD. LUNGS: Coarse rhonchi. CARDIOVASCULAR: Shows tachycardic S1 and S2 with no gallop. ABDOMEN: Soft. EXTREMITIES: No pitting edema. LABORATORY AND DIAGNOSTIC DATA: Labs show white count of 17.5, hemoglobin of 13, hematocrit of 40, platelet count is 169. Sodium 135, potassium 4.0, BUN of 117, creatinine of 7.4. Initial BUN was 176, creatinine of 9.6. Troponin is 0.079 and 0.1. ASSESSMENT AND PLAN: 1. Septic shock. Patient is already on Levophed as well as IV fluid 100 mL an hour. Partially it is also due to dehydration. Patient will be on IV antibiotic as well as Levophed Tod-Synephrine. 2. History of DVT. Eliquis to be decreased to 2.5 mg b.i.d. 3. Troponin elevation, likely due to renal failure. Does not have any chest pain. Repeat the troponin for further evaluation. His echocardiogram showed EF of 55%. 4. History of recent COVID pneumonia. Rapid COVID is negative. 5. Elevated troponin. Repeat the cardiac enzymes and EKG EKG does not show any acute ST-T wave abnormalities. 6. Acute renal failure, on IV fluids per Dr. Markham. Thank you very much for allowing me to participate in the care of this patient. Please do not hesitate to contact me for any questions regarding my evaluation. Agustin Morales M.D. DR: PAVEL JOB#: [id number] CC:
[2019-12-27] MEDS: Sodium Citrate 30ml NG SCH ×2 (18:15→23:58)
[2019-12-27] MEDS: Norepinephrine Bitartrate 8 MG in D5W 500ml 500 ML IV SCH ×2 (18:15→22:46)
--- NOTE | 2019-12-27 19:27 | NUR ---
NURSE HAND-OFF REPORT: Latest Vital Signs: Temperature 98.2 , Pulse 98 , B/P 110 /58 , Respiratory Rate 29 , O2 SAT 98 , Venturi Mask, O2 Flow Rate 14.0 . Vital Sign Comment: Stable EKG Rhythm: Atrial Fibrilation Rhythm change?: Teressa STRAUSS Notified?: Teressa Morales MD Response: Order Received& Read Back Latest Cook Fall Score: 50 Fall Risk: High Risk Safety Measures: Call light Within Reach, Bed Alarm Zone 1, Side Rails Side Rails x2, Bed position Low and Locked. Fall Precautions: Yellow Gown Report given to Ceferino VASQUEZ. Endorsed that plan for patient is possible non-tunneled cath and dialysis if patient can be off pressors.
--- NOTE | 2019-12-27 19:30 | NUR ---
NURSE NOTES: Received report from CHRISTINA Aldana. Pt is resting on the bed and lethargic. able to response to tactile stimuli. On Venturi mask and FiO2 55% and O2 14L and SaO2 97-98% noted. Noted on & off coughing. No fever. on ski instructor with A-fib. Pt has NGT and no residual noted. On NPO. Pt has Parker cath and patent ad drainage well. Noted edema on bilateral lower extremities. Elevated both legs with Pillow. Pt has Rt. IJ TLC. Dressing is clean and dry. On running with N/S @ 125cc/hr, Levophed drip @ 300mcg/hr and phenylephrine @ 100mcg/min. Pt has bilateral wrist soft restraint. Checked comfort and circulation. Trying to release restraint. Pt trying to touch and remove Venturi mask. Given verbal cueing but didn't understand. Changed position. Placed fall precaution. Will continue to monitor any change of condition. Addendum: 12/28/19 at 0546 by KENNETH GRAY RN RN charting error. change Levophed drip from 300mcg/min to 30mcg/min
[2019-12-27] MEDS: Dyna-Hex 2% Top Sol 2oz TOPIC SCH (19:59)
[2019-12-27] MEDS: Pantoprazole Inj IVP SCH (21:16)
--- NOTE | 2019-12-27 22:00 | NUR ---
NURSE NOTES: Pt is resting on the bed and SaO2 99% with current O2 setting. Noted BP : 127/65mmHg. Decrease phenylephrine drip @ 60mcg/min. HR: 92's with A-fib. changed position. Will continue to monitor any change of condition.
[2019-12-28] VITALS (74 sets, daily range): BP systolic 97–150; BP diastolic 49–116
--- NOTE | 2019-12-28 | NUR ---
NURSE NOTES: Pt is resting on the bed. Noted BP : 115/57mmHg. Decrease phenylephrine @ 20mcg/min. SaO2 98% with Venturi mask 14L. No sign of pain by FLACC scale. Noted BS ; 438mg/dl. on NPO. Left message to Dr. Mendoza and awaiting call back. No fever. On running with Levophed @ 300mcg/min and N/S @ 125cc/hr. Changed position. Placed fall precaution. Will continue to monitor any change of condition. Addendum: 12/28/19 at 0546 by KENNETH GRAY RN RN charting error. change Levophed drip @ 300mcg/min to 30mcg/min
--- NOTE | 2019-12-28 00:31 | NUR ---
NURSE NOTES: Get call back from Dr. Yee and new order received with physician consult to Dr. Yen. He said he will check up in the morning. Will continue to monitor any change of condition.
--- NOTE | 2019-12-28 01:00 | NUR ---
NURSE NOTES: BP checked 117/56 mmHg and HR: 98's with A-fib. Hold Phenylephrine drip. on running with Levophed @ 300mcg/min and N/S @ 125cc/hr. Will continue to monitor any change of condition. Addendum: 12/28/19 at 0546 by KENNETH GRAY RN RN charting error. change Levophed drip @ 300mcg/min to 30mcg/min
--- NOTE | 2019-12-28 02:00 | NUR ---
NURSE NOTES: Noted BP 122/58mmHg. Levophed drip dose change to 28mcg/min as titrate. 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 Will continue to monitor any change of condition.
[2019-12-28] MEDS: Norepinephrine Bitartrate 8 MG in D5W 500ml 500 ML IV SCH (03:21)
--- NOTE | 2019-12-28 03:45 | History and Physical Report ---
DATE OF ADMISSION: 12/27/2019 HISTORY OF PRESENT ILLNESS: The patient is basically admitted to the intensive care unit, came in with hypotension and hypoxia, was on pressors, responds to the normal saline, who was also on pressors. The patient was recently discharged from the hospital for COVID pneumonia and non-STEMI as well. The patient received multiple antibiotics and Decadron in the emergency room. Levophed started. Chest x-ray showed typical COVID even though the rapid swab was negative for COVID. The patient also has acute renal failure. Troponin elevated. Non-STEMI. No ST changes. The patient also has hyponatremia, admitted to the ICU for all those reasons. Cannot get any reliable history from the patient. PAST MEDICAL HISTORY: NIDDM, GERD, hypertension, hyperlipidemia, history of obesity, history of renal failure, CHF, history of COVID, non-STEMI. PAST SURGICAL HISTORY: Denies. ALLERGIES: Penicillin. MEDICATIONS: Norvasc, Eliquis, vitamin C, Lipitor, insulin, Actos, Januvia, vitamin D3, and zinc. FAMILY HISTORY: Noncontributory. REVIEW OF SYSTEMS: HEENT: Denies headaches. RESPIRATORY: Does have shortness of breath. CARDIOVASCULAR: Denies chest pain. GASTROINTESTINAL: Denies nausea or vomiting. EXTREMITIES: Denies pain. NEUROLOGIC: The patient is very weak. Relatively poor historian. The patient's history limited due to patient's current mental status. PHYSICAL EXAMINATION: VITAL SIGNS: Temperature is 99, blood pressure is 122/61. HEENT: PERRLA. NECK: Supple. No lymphadenopathy. CHEST: Bibasilar rhonchi. CARDIOVASCULAR: Regular rate and rhythm. ABDOMEN: Soft. Positive bowel sounds. EXTREMITIES: No edema. The patient is weak. He is able to move extremities. Generalized weakness. Dorsalis pedis pulses present. LABORATORY DATA: WBC of 16, hemoglobin 13.7, platelets 168. Sodium 130, potassium 4.2, BUN of 76, creatinine of 9.6, glucose of 194. Troponin of 0.079. ASSESSMENT AND PLAN: Non-STEMI, pneumonia, septic shock, hypotension, on pressors, in the ICU. I have consulted Dr. Ash, Dr. Claudy Acuna, Dr. Morales, and Dr. Markham to help with the management of this complex and critically ill patient. Antibiotics per Dr. Claudy Acuna. We will titrate the pressors and give oxygen, supportive therapy, and IV fluids as needed for this critically sick patient. Isaías Mendoza M.D. DR: MAIA JOB#: [id number] CC:
--- NOTE | 2019-12-28 04:00 | NUR ---
NURSE NOTES: Morning care was done. Bed bath given. Cleaned Pt and applied lotion and cream. changed position. on running with Levophed drip @ 24mcg/min and N/S @ 125cc/hr. no fever. Placed fall pre caution. Will continue to monitor.
--- NOTE | 2019-12-28 06:00 | NUR ---
NURSE NOTES: Pt is resting on the bed. SaO2 99% with O2 14L via venturi mask. Noted BP 122/70mmHg, HR: 82's with A-fib. Decrease Levophed drip to 14mcg/min as titrate. changed position. Given suction and oral care. Will continue to monitor any change of condition.
--- NOTE | 2019-12-28 06:10 | NUR ---
NURSE NOTES: Noted BS : 444mg/dl. Dr. Mendoza aware. No symptomatic. on NPO. Will continue to monitor any change of condition.
[2019-12-28] MEDS: Sodium Citrate 30ml NG SCH (06:13)
[2019-12-28] MEDS: Renvela 800mg Pkt NG SCH (06:13)
[2019-12-28] MEDS: Aztreonam Inj 0.5 GM in D5W 55 ML IVPB SCH (06:13)
[2019-12-28 06:55] LABS: HEMATOCRIT 38.1 % (42.0-52.0); HEMOGLOBIN 12.6 G/DL (14.2-18.0); MEAN CORPUSCULAR VOLUME 92 FL (80-99); PLATELET COUNT 163 K/UL (150-450); RED BLOOD COUNT 4.13 M/UL (4.70-6.10); RED CELL DISTRIBUTION WIDTH 13.3 % (11.6-14.8); WHITE BLOOD COUNT 16.1 K/UL (4.8-10.8)
--- NOTE | 2019-12-28 06:56 | NUR ---
NURSE NOTES: Get call back from Dr. Yen. New order received with insulin drip algorithm 2. Carried out. Will continue to monitor any change of condition.
--- NOTE | 2019-12-28 07:16 | NUR ---
NURSE HAND-OFF REPORT: Latest Vital Signs: Temperature 98.8 , Pulse 82 , B/P 126 /95 , Respiratory Rate 22 , O2 SAT 100 , Venturi Mask, O2 Flow Rate 14.0 . EKG Rhythm: Atrial Fibrillation Rhythm change?: N Latest Cook Fall Score: 50 Fall Risk: High Risk Safety Measures: Call light Within Reach, Bed Alarm Zone 2, Side Rails Side Rails x2, Bed position Low and Locked. Fall Precautions: Yellow Socks Yellow Gown Door Sign Patient Fall Education Report given to Tea Dent. Pt is resting on the bed and on running with Levophed drip @ 14mcg/min and N/S @ 125cc/hr. Insulin drip algorithm 2 order is not verified. Endorsed incoming nurse.
[2019-12-28 07:22] LABS: ALANINE AMINOTRANSFERASE 31 U/L (12-78); ALBUMIN 2.9 G/DL (3.4-5.0); ALBUMIN/GLOBULIN RATIO 0.7 (1.0-2.7); ALKALINE PHOSPHATASE 89 U/L (46-116); ANION GAP 15 mmol/L (5-15); ASPARTATE AMINO TRANSFERASE 27 U/L (15-37); BLOOD UREA NITROGEN 120 mg/dL (7-18); CALCIUM 8.2 MG/DL (8.5-10.1); CARBON DIOXIDE 21 MMOL/L (21-32); CHLORIDE 99 MMOL/L (98-107); CREATININE 3.7 MG/DL (0.55-1.30); PHOSPHORUS 4.1 MG/DL (2.5-4.9); POTASSIUM 3.5 MMOL/L (3.5-5.1); SODIUM 135 MMOL/L (136-145)
--- NOTE | 2019-12-28 07:30 | NUR ---
NURSE NOTES: Received report from CHRISTINA De La Vega. Pt is resting on the bed and lethargic, responding to tactile stimuli. On Venturi mask and FiO2 55% and O2 14L and SaO2 97-98% noted. AFib on registered vascular technologist (rvt). Pt has NGT, currently NPO. Pt has Parker cath, patent and draining to urometer. Pt has Rt. IJ TLC. Dressing clean, dry, and intact. N/S running @ 125cc/hr and Levophed drip @ 14mcg/min. Pt has bilateral soft wrist restraints for safety, surrounding skin and circulation intact. Bed locked and in lowest position. Will continue to monitor any change in condition.
[2019-12-28] MEDS ORDERED: Insulin Human Regular 100units/ml 3ml IV PRN (08:00)
[2019-12-28] MEDS ORDERED: Insulin Reg 100 units Premix 100 ML IVPB SCH ×3 (08:00→12:50)
--- NOTE | 2019-12-28 08:10 | NUR ---
NURSE NOTES: Insulin drip started at this time @ Algorithm 2 at 12 unit/hr for BS of 360. Emar not allowing dose of 12ml/hr to be entered in.
[2019-12-28] MEDS: Eliquis 2.5mg tablet ORAL SCH ×2 (08:17→17:10)
[2019-12-28] MEDS: Pantoprazole Inj IVP SCH ×2 (08:17→21:08)
--- NOTE | 2019-12-28 08:30 | Consultation ---
DATE OF CONSULTATION: 12/28/2019 ENDOCRINOLOGY CONSULTATION CONSULTING PHYSICIAN: Kaiser Yen MD. REFERRING PHYSICIAN: Isaías Mendoza MD. REASON FOR CONSULTATION: Diabetes management. HISTORY OF PRESENT ILLNESS: The patient is a 64-year-old male with history of diabetes insulin dependent and lower extremity DVT on Eliquis, and brought by ambulance from care home for hypotension and hypoxemia. The patient was diagnosed with septic shock, admitted to the ICU and started on pressors. Glucose is running over 400 and the latest chemistry showed open anion gap of 20. I was called to manage diabetes. PAST MEDICAL HISTORY: 1. Hypertension. 2. Diabetes, insulin dependent. 3. Lower extremity DVT on Eliquis. 4. Recent COVID pneumonia. FAMILY HISTORY: Noncontributory. SOCIAL HISTORY: From [facility] facility. REVIEW OF SYSTEMS: As per HPI. MEDICATIONS: Reviewed and reconciled. LABORATORY VALUES: Sodium 135, potassium 4, chloride 95, bicarb 20, anion gap 20, BUN 176, creatinine of 7.4, glucose of 313, A1c of 8.7. Lactic acid of 1.0. TSH is 0.174. PHYSICAL EXAMINATION: GENERAL: The patient is on Venturi mask. VITAL SIGNS: Blood pressure is 118/63, heart rate 86, respiratory rate 22. HEENT: Pupils are equal and reactive to light. Sclerae anicteric. NECK: No JVD. HEART: Regular. LUNGS: Decreased breath sounds. ABDOMEN: Soft, nontender. EXTREMITIES: Positive for edema. DIAGNOSES: 1. Septic shock. 2. Acute kidney injury. 3. DKA. PLAN: I will start the patient on an insulin drip algorithm 2. Follow electrolytes closely. Once the anion gap is closed, we will convert to subcutaneous insulin therapy. I will follow the patient closely during hospital stay. Thank you, Dr. Mendoza, for the courtesy of this consultation. Kaiser Yen M.D. DR: CHRISTINA/ADEBAYO JOB#: [id number] CC: MAX
--- NOTE | 2019-12-28 08:38 | NUR ---
NURSE NOTES: Dr Markham at bedside assessing pt. Updated him on pt's current condition. Dr Markham informed procedure writer that he does not have plans to insert a HD catheter and/or do hemodialysis at this time.
[2019-12-28] MEDS ORDERED: Eliquis 2.5mg tablet ORAL SCH (09:00)
[2019-12-28] MEDS ORDERED: Pantoprazole Inj IVP SCH (09:00)
--- NOTE | 2019-12-28 09:10 | NUR ---
NURSE NOTES: BS 286. 5 units Insulin given IV. Pt remains in algorithm 2 and insulin drip decreased to 6.5
--- NOTE | 2019-12-28 09:13 | NUR ---
RADIOLOGY DEPT., CHEST X-RAY DONE.-P.DYE
--- NOTE | 2019-12-28 09:16 | Nephrology Progress Note ---
Assessment/Plan Problem List: (1) Renal failure (ARF), acute on chronic (2) Dehydration (3) Septic shock (4) Lobar pneumonia (5) Pneumonia due to COVID-19 virus (6) NSTEMI (non-ST elevated myocardial infarction) (7) Diabetes Assessment Acute renal failure Hypoxia, pneumonia due to COVID-19 Septic shock on pressors Non-STEMI AL History of congestive heart failure History of hypertension, Diabetes mellitus History of obesity Plan December 27: Renal parameters improving. Hemodynamically more stable. Off pressors. Continue per current management. Previously: Patient has reasonable urine output at this time Remains on pressors We will adjust IV fluid, will check chemistry panel. If the patient gets to be hemodynamically stable and no improvement in renal parameters will attempt dialysis. Discussed with family and consent for Non tunneled catheter insertion obtained Discussed with RN Per orders Subjective ROS Limited/Unobtainable: Yes Objective Objective Last 24 Hour Vital Signs Date Time Temp Pulse Resp B/P (MAP) Pulse Ox O2 Delivery O2 Flow Rate FiO2 12/28/19 08:00 150/70 12/28/19 07:00 82 22 126/95 (105) 100 12/28/19 07:00 126/95 12/28/19 06:45 92 22 103/58 (73) 100 12/28/19 06:30 84 26 128/58 (81) 100 12/28/19 06:15 86 23 118/63 (81) 99 12/28/19 06:00 82 24 122/70 (87) 99 12/28/19 06:00 122/70 12/28/19 05:45 86 23 132/57 (82) 99 12/28/19 05:45 132/57 12/28/19 05:30 86 20 137/58 (84) 99 12/28/19 05:15 135/74 12/28/19 05:15 83 20 135/74 (94) 99 12/28/19 05:00 137/64 12/28/19 05:00 87 25 137/64 (88) 99 12/28/19 04:45 88 25 133/65 (87) 100 12/28/19 04:30 122/61 12/28/19 04:30 94 27 122/67 (85) 99 12/28/19 04:15 87 25 126/58 (80) 98 12/28/19 04:00 98.8 98 21 103/65 (78) 99 12/28/19 04:00 88 12/28/19 04:00 103/65 12/28/19 04:00 14.0 55 12/28/19 04:00 Venturi Mask 14.0 12/28/19 03:45 92 25 123/61 (81) 100 12/28/19 03:30 88 24 124/55 (78) 100 12/28/19 03:21 121/56 12/28/19 03:15 93 25 121/56 (77) 99 12/28/19 03:00 135/56 12/28/19 03:00 90 22 135/56 (82) 99 12/28/19 02:45 90 23 121/58 (79) 98 12/28/19 02:30 94 24 115/65 (82) 99 12/28/19 02:15 94 28 114/57 (76) 99 12/28/19 02:00 122/58 12/28/19 02:00 90 27 122/58 (79) 98 12/28/19 01:45 95 29 114/56 (75) 98 12/28/19 01:30 102 24 120/62 (81) 99 12/28/19 01:15 100 30 121/63 (82) 98 12/28/19 01:00 117/56 12/28/19 01:00 98 28 117/56 (76) 99 12/28/19 00:45 96 27 112/56 (74) 98 12/28/19 00:30 100 28 129/67 (87) 99 12/28/19 00:15 96 26 127/70 (89) 98 12/28/19 00:00 Venturi Mask 14.0 12/28/19 00:00 115/57 12/28/19 00:00 107 12/28/19 00:00 98.4 90 28 115/57 (76) 98 12/28/19 00:00 14.0 55 12/27/19 23:45 93 26 127/57 (80) 99 12/27/19 23:30 92 24 123/66 (85) 98 12/27/19 23:30 123/66 12/27/19 23:15 97 26 115/70 (85) 98 12/27/19 23:00 92 28 116/64 (81) 98 8/16/20 23:00 116/64 8/16/20 22:46 113/61 8/16/20 22:45 103 29 102/51 (68) 98 8/16/20 22:30 103 21 113/61 (78) 98 8/16/20 22:15 96 28 120/71 (87) 99 8/16/20 22:00 107 25 127/65 (85) 99 8/16/20 22:00 127/65 8/16/20 21:45 99 30 122/61 (81) 99 8/16/20 21:30 97 28 120/57 (78) 98 8/16/20 21:15 95 27 125/62 (83) 98 8/16/20 21:00 123/58 816/20 21:00 96 28 123/58 (79) 98 8/16/20 20:45 108 27 116/56 (76) 97 8/16/20 20:30 106 28 118/58 (78) 98 8/16/20 20:15 102 27 120/62 (81) 99 816/20 20:00 127/55 816/20 20:00 14.0 55 816/20 20:00 Venturi Mask 14.0 1620 20:00 98 8/16/20 20:00 98.3 94 25 127/55 (79) 97 8/16/20 19:30 94 28 110/53 (72) 98 816/20 19:00 114/61 16/20 19:00 98 29 110/58 (75) 98 816/20 18:30 98 28 118/66 (83) 99 8/16/20 18:15 111/55 816/20 18:14 111/55 816/20 18:08 85/45 8/16/20 18:00 98.2 95 25 111/55 (73) 99 8/16/20 17:30 101 30 112/58 (76) 98 8/16/20 17:08 95/54 816/20 17:00 98 31 107/56 (73) 98 8/16/20 16:30 97 28 106/55 (72) 99 816/20 16:08 109/53 81620 16:00 Venturi Mask 14.0 8/16/20 16:00 14.0 55 12/27/19 16:00 106/53 12/27/19 16:00 101 28 109/53 (71) 98 12/27/19 15:45 103 28 95/54 (68) 98 12/27/19 15:30 109 26 98/52 (67) 98 12/27/19 15:15 97 27 97/53 (68) 98 12/27/19 15:14 88 12/27/19 15:00 98/52 12/27/19 15:00 103 29 90/49 (63) 97 12/27/19 14:54 107 90/49 12/27/19 14:30 102 25 83/49 (60) 98 12/27/19 14:15 112 31 90/50 (63) 98 12/27/19 14:00 117 30 87/52 (64) 97 12/27/19 14:00 87/52 12/27/19 13:30 97.8 112 28 90/45 (60) 97 12/27/19 13:00 113 28 90/50 (63) 98 12/27/19 13:00 90/51 12/27/19 12:30 103 23 91/54 (66) 98 12/27/19 12:12 107 12/27/19 12:00 117 31 94/59 (71) 98 12/27/19 12:00 Venturi Mask 14.0 12/27/19 12:00 94/60 12/27/19 11:40 97/67 12/27/19 11:38 108 25 101/59 (73) 97 12/27/19 11:35 127 20 97/67 (77) 97 12/27/19 11:30 102 18 86/56 (66) 97 12/27/19 11:30 85/46 12/27/19 11:25 110 25 90/58 (69) 97 12/27/19 11:25 80/55 12/27/19 11:20 82/48 12/27/19 11:20 112 24 82/48 (59) 97 12/27/19 11:06 87/52 12/27/19 11:05 90/58 12/27/19 11:00 110 22 87/52 (64) 97 12/27/19 11:00 87/52 12/27/19 10:30 105 22 93/58 (70) 99 12/27/19 10:00 102 22 107/55 (72) 99 12/27/19 10:00 102/55 12/27/19 09:30 102 22 107/55 (72) 99 Intake and Output 12/27/19 12/28/19 19:00 07:00 Intake Total 2897.4800 ml 2891.63 ml Output Total 690 ml 2575 ml Balance 2207.4800 ml 316.63 ml Intake IV Total 2897.4800 ml 2891.63 ml Output Urine Total 690 ml 2575 ml # Voids 320 # Bowel Movements 3 2 Current Medications Medications (Trade) Dose Ordered Sig/Susana Route PRN Reason Start Time Stop Time Status Last Admin Dose Admin Acetaminophen (Tylenol) 500 mg Q4H PRN ORAL Mild Pain (Pain Scale 1-3) 12/27/19 07:00 01/26/20 06:59 Albumin Human 100 ml @ 100 mls/hr Q6H IV 12/27/19 16:15 12/28/19 23:14 12/28/19 04:32 Apixaban (Eliquis) 2.5 mg BID ORAL 12/27/19 10:00 03/26/20 09:59 12/28/19 08:17 Aztreonam 0.5 gm/ Dextrose 55 ml @ 110 mls/hr Q8HR IVPB 12/27/19 14:00 01/03/20 13:59 12/28/19 06:13 Chlorhexidine Gluconate (Ally-Hex 2%) 1 applic DAILY@2000 TOPIC 12/27/19 20:00 03/26/20 19:59 12/27/19 19:59 Dextrose (Dextrose 50%) 25 ml Q30M PRN IV HYPOGLYCEMIA 12/28/19 08:00 03/27/20 07:59 Dextrose (Dextrose 50%) 50 ml Q30M PRN IV HYPOGLYCEMIA 12/28/19 08:00 03/27/20 07:59 Insulin Human (Reg)/Sodium Chloride 100 ml @ 0 mls/hr Q24H IVPB 12/28/19 08:00 03/27/20 07:59 Insulin Human Regular (NovoLIN R) 5 units PRN PRN IV BS 200-299 12/28/19 08:00 03/27/20 07:59 Insulin Human Regular (NovoLIN R) 10 units PRN PRN IV BS=>300 12/28/19 08:00 03/27/20 07:59 12/28/19 08:19 Levofloxacin 100 ml @ 100 mls/hr Q48H IVPB 12/27/19 12:30 01/03/20 12:29 12/27/19 12:17 Miscellaneous Medication (Insulin Rate Change) 1 ea PRN PRN MISC Sliding Scale 12/28/19 08:00 03/27/20 07:59 Norepinephrine Bitartrate 8 mg/ Dextrose 508 ml @ 0 mls/hr Q24H IV 12/27/19 12:30 01/26/20 08:29 12/28/19 03:21 Pantoprazole (Protonix) 40 mg Q12HR IVP 12/27/19 21:00 01/27/20 08:59 12/28/19 08:17 Phenylephrine HCl 50 mg/Dextrose 250 ml @ 0 mls/hr Q24H IV 12/27/19 12:00 01/26/20 11:59 12/27/19 14:54 Sevelamer Carbonate (Renvela) 1,600 mg Q8HR NG 12/27/19 16:00 03/26/20 15:59 12/28/19 06:13 Sodium Chloride 1,000 ml @ 125 mls/hr Q8H IV 12/27/19 15:50 01/26/20 15:49 12/28/19 08:19 Sodium Citrate (Bicitra) 30 ml EVERY 6 HOURS NG 12/27/19 18:00 01/26/20 17:59 12/28/19 06:13 Vancomycin HCl (Vanco pharmacy to dose) 1 ea DAILY PRN MISC Per rx protocol 12/27/19 10:30 01/26/20 10:29 Laboratory Tests 12/27/19 11:00: Sodium Level 135L, Potassium Level 4.0, Chloride Level 95L, Carbon Dioxide Level 20L, Anion Gap 20H, Blood Urea Nitrogen 172H, Creatinine 7.4H, Estimat Glomerular Filtration Rate 7.5, Glucose Level 313#H, Hemoglobin A1c 8.7H, Uric Acid 11.8H, Calcium Level 8.1L, Phosphorus Level 9.1H, Magnesium Level 2.9H, Total Bilirubin 1.1H, Direct Bilirubin 0.7H, Gamma Glutamyl Transpeptidase 44, Aspartate Amino Transf (AST/SGOT) 31, Alanine Aminotransferase (ALT/SGPT) 37, Alkaline Phosphatase 93, Lactate Dehydrogenase 296H, Troponin I 0.100H, Total Protein 6.9, Albumin 1.8L, Globulin 5.1, Albumin/Globulin Ratio 0.4L, Triglycerides Level 66, Cholesterol Level 124, LDL Cholesterol 73, HDL Cholesterol 38L, Cholesterol/HDL Ratio 3.3, Thyroid Stimulating Hormone (TSH) 0.174L 12/27/19 12:00: Urine Random Sodium 34 12/27/19 12:53: White Blood Count 17.5H, Red Blood Count 4.30L, Hemoglobin 13.1L, Hematocrit 40.3L, Mean Corpuscular Volume 94, Mean Corpuscular Hemoglobin 30.4, Mean Corpuscular Hemoglobin Concent 32.5, Red Cell Distribution Width 13.0, Platelet Count 169, Mean Platelet Volume 8.0, Neutrophils (%) (Auto) , Lymphocytes (%) ( Auto) , Monocytes (%) (Auto) , Eosinophils (%) (Auto) , Basophils (%) (Auto) , Differential Total Cells Counted 100, Neutrophils % (Manual) 95H, Lymphocytes % (Manual) 3L, Monocytes % (Manual) 2, Eosinophils % (Manual) 0, Basophils % ( Manual) 0, Band Neutrophils 0, Platelet Estimate Adequate, Platelet Morphology Normal, Red Blood Cell Morphology Normal 12/28/19 05:25: Sodium Level 135L, Potassium Level 3.5, Chloride Level 99, Carbon Dioxide Level 21, Anion Gap 15, Blood Urea Nitrogen 120H, Creatinine 3.7H, Estimat Glomerular Filtration Rate 16.7, Glucose Level 437#H, Uric Acid 10.2H, Calcium Level 8.2L, Phosphorus Level 4.1, Magnesium Level 2.6H, Total Bilirubin 1.0, Aspartate Amino Transf (AST/SGOT) 27, Alanine Aminotransferase (ALT/SGPT) 31, Alkaline Phosphatase 89, Total Protein 7.1, Albumin 2.9L, Globulin 4.2, Albumin/Globulin Ratio 0.7L, White Blood Count 16.1H, Red Blood Count 4.13L, Hemoglobin 12.6L, Hematocrit 38.1L, Mean Corpuscular Volume 92, Mean Corpuscular Hemoglobin 30.4, Mean Corpuscular Hemoglobin Concent 33.0, Red Cell Distribution Width 13.3, Platelet Count 163, Mean Platelet Volume 7.2, Neutrophils (%) (Auto) , Lymphocytes (%) (Auto) , Monocytes (%) (Auto) , Eosinophils (%) (Auto) , Basophils (%) (Auto) , Differential Total Cells Counted 100, Neutrophils % ( Manual) 93H, Lymphocytes % (Manual) 2L, Monocytes % (Manual) 5, Eosinophils % ( Manual) 0, Basophils % (Manual) 0, Band Neutrophils 0, Platelet Estimate Adequate, Platelet Morphology Normal, Red Blood Cell Morphology Normal, C- Reactive Protein, Quantitative 12.9H, Pro-B-Type Natriuretic Peptide 6198H 12/28/19 07:00: Urine Eosinophils [Pending] 12/28/19 07:44: Arterial Blood pH 7.392, Arterial Blood Partial Pressure CO2 33.1L, Arterial Blood Partial Pressure O2 108.1H, Arterial Blood HCO3 19.7L, Arterial Blood Oxygen Saturation 98.0, Arterial Blood Base Excess -4.4L, Vinay Test Positive Height (Feet): 5 Height (Inches): 6.00 Weight (Pounds): 160 EENT: other - On Venturi mask Cardiovascular: normal rate - Rate 80s Respiratory/Chest: decreased breath sounds Abdomen: distended Desmond Markham MD Dec 28, 2019 09:16
[2019-12-28] MEDS: Insulin Human Regular 100units/ml 3ml IV PRN ×2 (09:37→10:14)
[2019-12-28] MEDS ORDERED: NS 275ml ONE (10:00)
[2019-12-28] MEDS ORDERED: Tubing IV Secondary IV ONE (10:00)
--- NOTE | 2019-12-28 10:04 | Diagnostic Imaging Report ---
Indication: Shortness of breath Technique: One view of the chest Comparison: 12/27/2019 Findings: Stable satisfactory positions of nasogastric tube and right jugular central venous catheter. Bilateral left greater than right infiltrates versus edema persists. The heart remains enlarged. The pleural spaces are clear. Impression: Unchanged, over one day, findings as above.
[2019-12-28] MEDS: Phenylephrine 50 MG in D5W 245 ML IV SCH (10:15)
--- NOTE | 2019-12-28 10:16 | Infectious Diseases Prog Note ---
Assessment/Plan Assessment/Plan IMPRESSION: 1. Severe sepsis with septic shock. 2. Pneumonia. 3. Pyuria, may have UTI. 4. Acute renal failure. 5. Hypoxemic respiratory failure. 6. Diabetes with hyperglycemia 7. Hypertension. 8. Acidosis. 9. Obesity. RECOMMENDATION: Continue vancomycin and Levaquin& Azactam will follow up the cultures Subjective ROS Limited/Unobtainable: Yes Constitutional: Denies: fever Respiratory: Reports: productive cough Cardiovascular: Reports: other - dose pf Levophed is coming down Neurologic: Reports: other - on restraint Allergies: Coded Allergies: PENICILLINS (Verified Allergy, Unknown, 12/27/19) Objective Last 24 Hour Vital Signs Date Time Temp Pulse Resp B/P (MAP) Pulse Ox O2 Delivery O2 Flow Rate FiO2 12/28/19 09:35 100 Venturi Mask 12.0 50 12/28/19 09:00 110/56 12/28/19 08:00 150/70 12/28/19 07:00 82 22 126/95 (105) 100 12/28/19 07:00 126/95 12/28/19 06:45 92 22 103/58 (73) 100 12/28/19 06:30 84 26 128/58 (81) 100 12/28/19 06:15 86 23 118/63 (81) 99 12/28/19 06:00 82 24 122/70 (87) 99 12/28/19 06:00 122/70 12/28/19 05:45 86 23 132/57 (82) 99 12/28/19 05:45 132/57 12/28/19 05:30 86 20 137/58 (84) 99 12/28/19 05:15 135/74 12/28/19 05:15 83 20 135/74 (94) 99 12/28/19 05:00 137/64 12/28/19 05:00 87 25 137/64 (88) 99 12/28/19 04:45 88 25 133/65 (87) 100 12/28/19 04:30 122/61 12/28/19 04:30 94 27 122/67 (85) 99 12/28/19 04:15 87 25 126/58 (80) 98 12/28/19 04:00 98.8 98 21 103/65 (78) 99 12/28/19 04:00 88 12/28/19 04:00 103/65 12/28/19 04:00 14.0 55 12/28/19 04:00 Venturi Mask 14.0 12/28/19 03:45 92 25 123/61 (81) 100 12/28/19 03:30 88 24 124/55 (78) 100 12/28/19 03:21 121/56 12/28/19 03:15 93 25 121/56 (77) 99 12/28/19 03:00 135/56 12/28/19 03:00 90 22 135/56 (82) 99 12/28/19 02:45 90 23 121/58 (79) 98 12/28/19 02:30 94 24 115/65 (82) 99 12/28/19 02:15 94 28 114/57 (76) 99 12/28/19 02:00 122/58 12/28/19 02:00 90 27 122/58 (79) 98 12/28/19 01:45 95 29 114/56 (75) 98 12/28/19 01:30 102 24 120/62 (81) 99 12/28/19 01:15 100 30 121/63 (82) 98 12/28/19 01:00 117/56 12/28/19 01:00 98 28 117/56 (76) 99 12/28/19 00:45 96 27 112/56 (74) 98 12/28/19 00:30 100 28 129/67 (87) 99 12/28/19 00:15 96 26 127/70 (89) 98 12/28/19 00:00 Venturi Mask 14.0 12/28/19 00:00 115/57 12/28/19 00:00 107 12/28/19 00:00 98.4 90 28 115/57 (76) 98 12/28/19 00:00 14.0 55 12/27/19 23:45 93 26 127/57 (80) 99 12/27/19 23:30 92 24 123/66 (85) 98 12/27/19 23:30 123/66 12/27/19 23:15 97 26 115/70 (85) 98 12/27/19 23:00 92 28 116/64 (81) 98 12/27/19 23:00 116/64 12/27/19 22:46 113/61 8/16/20 22:45 103 29 102/51 (68) 98 8/16/20 22:30 103 21 113/61 (78) 98 8/16/20 22:15 96 28 120/71 (87) 99 8/16/20 22:00 107 25 127/65 (85) 99 8/16/20 22:00 127/65 816/20 21:45 99 30 122/61 (81) 99 8/16/20 21:30 97 28 120/57 (78) 98 8/16/20 21:15 95 27 125/62 (83) 98 8/16/20 21:00 123/58 816/20 21:00 96 28 123/58 (79) 98 816/20 20:45 108 27 116/56 (76) 97 [id number] 20:30 106 28 118/58 (78) 98 8/16/20 20:15 102 27 120/62 (81) 99 1620 20:00 127/55 20 20:00 14.0 55 12/27/19 20:00 Venturi Mask 14.0 1620 20:00 98 16/20 20:00 98.3 94 25 127/55 (79) 97 816/20 19:30 94 28 110/53 (72) 98 16/20 19:00 114/61 1620 19:00 98 29 110/58 (75) 98 /16/20 18:30 98 28 118/66 (83) 99 1620 18:15 111/55 1620 18:14 111/55 1620 18:08 85/45 816/20 18:00 98.2 95 25 111/55 (73) 99 8/16/20 17:30 101 30 112/58 (76) 98 16/20 17:08 95/54 1620 17:00 98 31 107/56 (73) 98 8/16/20 16:30 97 28 106/55 (72) 99 1620 16:08 109/53 1620 16:00 Venturi Mask 14.0 20 16:00 14.0 55 [id number] 16:00 106/53 8/16/20 16:00 101 28 109/53 (71) 98 12/27/19 15:45 103 28 95/54 (68) 98 12/27/19 15:30 109 26 98/52 (67) 98 12/27/19 15:15 97 27 97/53 (68) 98 12/27/19 15:14 88 12/27/19 15:00 98/52 12/27/19 15:00 103 29 90/49 (63) 97 12/27/19 14:54 107 90/49 12/27/19 14:30 102 25 83/49 (60) 98 12/27/19 14:15 112 31 90/50 (63) 98 12/27/19 14:00 117 30 87/52 (64) 97 12/27/19 14:00 87/52 12/27/19 13:30 97.8 112 28 90/45 (60) 97 12/27/19 13:00 113 28 90/50 (63) 98 12/27/19 13:00 90/51 12/27/19 12:30 103 23 91/54 (66) 98 12/27/19 12:12 107 12/27/19 12:00 117 31 94/59 (71) 98 12/27/19 12:00 Venturi Mask 14.0 12/27/19 12:00 94/60 12/27/19 11:40 97/67 12/27/19 11:38 108 25 101/59 (73) 97 12/27/19 11:35 127 20 97/67 (77) 97 12/27/19 11:30 102 18 86/56 (66) 97 12/27/19 11:30 85/46 12/27/19 11:25 110 25 90/58 (69) 97 12/27/19 11:25 80/55 12/27/19 11:20 82/48 12/27/19 11:20 112 24 82/48 (59) 97 12/27/19 11:06 87/52 12/27/19 11:05 90/58 12/27/19 11:00 110 22 87/52 (64) 97 12/27/19 11:00 87/52 12/27/19 10:30 105 22 93/58 (70) 99 Height (Feet): 5 Height (Inches): 6.00 Weight (Pounds): 160 HEENT: mucous membranes moist Respiratory/Chest: lungs clear, other - Oxygen by mask Cardiovascular: normal rate Abdomen: soft, non tender Extremities: no edema Skin: other - left singh pigmentation Neurologic/Psychiatric: disoriented Microbiology Date/Time Source Procedure Growth Status 12/27/19 04:45 Nasopharynx SARS-CoV-2 RdRp Gene Assay - Final Complete 12/27/19 05:30 Indwelling Cath Urine Culture - Preliminary Resulted Laboratory Tests Test 12/27/19 11:00 12/27/19 12:00 12/27/19 12:53 12/28/19 05:25 Sodium Level 135 MMOL/L (136-145) L 135 MMOL/L (136-145) L Potassium Level 4.0 MMOL/L (3.5-5.1) 3.5 MMOL/L (3.5-5.1) Chloride Level 95 MMOL/L (98-107) L 99 MMOL/L (98-107) Carbon Dioxide Level 20 MMOL/L (21-32) L 21 MMOL/L (21-32) Anion Gap 20 mmol/L (5-15) H 15 mmol/L (5-15) Blood Urea Nitrogen 172 mg/dL (7-18) H 120 mg/dL (7-18) H Creatinine 7.4 MG/DL (0.55-1.30) H 3.7 MG/DL (0.55-1.30) H Estimat Glomerular Filtration Rate 7.5 mL/min (>60) 16.7 mL/min (>60) Glucose Level 313 MG/DL (74-106) #H 437 MG/DL (74-106) #H Hemoglobin A1c 8.7 % (4.3-6.0) H Uric Acid 11.8 MG/DL (2.6-7.2) H 10.2 MG/DL (2.6-7.2) H Calcium Level 8.1 MG/DL (8.5-10.1) L 8.2 MG/DL (8.5-10.1) L Phosphorus Level 9.1 MG/DL (2.5-4.9) H 4.1 MG/DL (2.5-4.9) Magnesium Level 2.9 MG/DL (1.8-2.4) H 2.6 MG/DL (1.8-2.4) H Total Bilirubin 1.1 MG/DL (0.2-1.0) H 1.0 MG/DL (0.2-1.0) Direct Bilirubin 0.7 MG/DL (0.0-0.3) H Gamma Glutamyl Transpeptidase 44 U/L (5-85) Aspartate Amino Transf (AST/SGOT) 31 U/L (15-37) 27 U/L (15-37) Alanine Aminotransferase (ALT/SGPT) 37 U/L (12-78) 31 U/L (12-78) Alkaline Phosphatase 93 U/L (46-116) 89 U/L (46-116) Lactate Dehydrogenase 296 U/L (81-234) H Troponin I 0.100 ng/mL (0.000-0.056) Total Protein 6.9 G/DL (6.4-8.2) 7.1 G/DL (6.4-8.2) Albumin 1.8 G/DL (3.4-5.0) L 2.9 G/DL (3.4-5.0) L Globulin 5.1 g/dL 4.2 g/dL Albumin/Globulin Ratio 0.4 (1.0-2.7) L 0.7 (1.0-2.7) L Triglycerides Level 66 MG/DL (30-150) Cholesterol Level 124 MG/DL (< 200) LDL Cholesterol 73 mg/dL (<100) HDL Cholesterol 38 MG/DL (40-60) L Cholesterol/HDL Ratio 3.3 (3.3-4.4) Thyroid Stimulating Hormone (TSH) 0.174 uiU/mL (0.358-3.740) Urine Random Sodium 34 mmol/L (20-110) White Blood Count 17.5 K/UL (4.8-10.8) H 16.1 K/UL (4.8-10.8) H Red Blood Count 4.30 M/UL (4.70-6.10) L 4.13 M/UL (4.70-6.10) L Hemoglobin 13.1 G/DL (14.2-18.0) L 12.6 G/DL (14.2-18.0) L Hematocrit 40.3 % (42.0-52.0) L 38.1 % (42.0-52.0) L Mean Corpuscular Volume 94 FL (80-99) 92 FL (80-99) Mean Corpuscular Hemoglobin 30.4 PG (27.0-31.0) 30.4 PG (27.0-31.0) Mean Corpuscular Hemoglobin Concent 32.5 G/DL (32.0-36.0) 33.0 G/DL (32.0-36.0) Red Cell Distribution Width 13.0 % (11.6-14.8) 13.3 % (11.6-14.8) Platelet Count 169 K/UL (150-450) 163 K/UL (150-450) Mean Platelet Volume 8.0 FL (6.5-10.1) 7.2 FL (6.5-10.1) Neutrophils (%) (Auto) % (45.0-75.0) % (45.0-75.0) Lymphocytes (%) (Auto) % (20.0-45.0) % (20.0-45.0) Monocytes (%) (Auto) % (1.0-10.0) % (1.0-10.0) Eosinophils (%) (Auto) % (0.0-3.0) % (0.0-3.0) Basophils (%) (Auto) % (0.0-2.0) % (0.0-2.0) Differential Total Cells Counted 100 100 Neutrophils % (Manual) 95 % (45-75) H 93 % (45-75) H Lymphocytes % (Manual) 3 % (20-45) L 2 % (20-45) L Monocytes % (Manual) 2 % (1-10) 5 % (1-10) Eosinophils % (Manual) 0 % (0-3) 0 % (0-3) Basophils % (Manual) 0 % (0-2) 0 % (0-2) Band Neutrophils 0 % (0-8) 0 % (0-8) Platelet Estimate Adequate Adequate Platelet Morphology Normal Normal Red Blood Cell Morphology Normal Normal C-Reactive Protein, Quantitative 12.9 mg/dL (0.00-0.90) H Pro-B-Type Natriuretic Peptide 6198 pg/mL (0-125) H Random Vancomycin Level 5.4 ug/mL Test 12/28/19 07:00 12/28/19 07:44 Urine Eosinophils Pending Arterial Blood pH 7.392 (7.350-7.450) Arterial Blood Partial Pressure CO2 33.1 mmHg (35.0-45.0) L Arterial Blood Partial Pressure O2 108.1 mmHg (75.0-100.0) H Arterial Blood HCO3 19.7 mmol/L (22.0-26.0) L Arterial Blood Oxygen Saturation 98.0 % (95-100) Arterial Blood Base Excess -4.4 (-2-2) L Vinay Test Positive Current Medications Medications (Trade) Dose Ordered Sig/Susana Route PRN Reason Start Time Stop Time Status Last Admin Dose Admin Acetaminophen (Tylenol) 500 mg Q4H PRN ORAL Mild Pain (Pain Scale 1-3) 12/27/19 07:00 01/26/20 06:59 Albumin Human 100 ml @ 100 mls/hr Q6H IV 12/27/19 16:15 12/28/19 23:14 12/28/19 04:32 Apixaban (Eliquis) 2.5 mg BID ORAL 12/27/19 10:00 03/26/20 09:59 12/28/19 08:17 Aztreonam 0.5 gm/ Dextrose 55 ml @ 110 mls/hr Q8HR IVPB 12/27/19 14:00 01/03/20 13:59 12/28/19 06:13 Chlorhexidine Gluconate (Ally-Hex 2%) 1 applic DAILY@2000 TOPIC 12/27/19 20:00 03/26/20 19:59 12/27/19 19:59 Dextrose (Dextrose 50%) 25 ml Q30M PRN IV HYPOGLYCEMIA 12/28/19 08:00 03/27/20 07:59 Dextrose (Dextrose 50%) 50 ml Q30M PRN IV HYPOGLYCEMIA 12/28/19 08:00 03/27/20 07:59 Insulin Human (Reg)/Sodium Chloride 100 ml @ 0 mls/hr Q24H IVPB 12/28/19 09:45 03/27/20 07:59 12/28/19 09:38 Insulin Human Regular (NovoLIN R) 5 units PRN PRN IV BS 200-299 12/28/19 08:00 03/27/20 07:59 12/28/19 09:37 Insulin Human Regular (NovoLIN R) 10 units PRN PRN IV BS=>300 12/28/19 08:00 03/27/20 07:59 12/28/19 08:19 Levofloxacin 100 ml @ 100 mls/hr Q48H IVPB 12/27/19 12:30 01/03/20 12:29 12/27/19 12:17 Miscellaneous Medication (Insulin Rate Change) 1 ea PRN PRN MISC Sliding Scale 12/28/19 08:00 03/27/20 07:59 Norepinephrine Bitartrate 8 mg/ Dextrose 508 ml @ 0 mls/hr Q24H IV 12/27/19 12:30 01/26/20 08:29 12/28/19 03:21 Pantoprazole (Protonix) 40 mg Q12HR IVP 12/27/19 21:00 01/27/20 08:59 12/28/19 08:17 Phenylephrine HCl 50 mg/Dextrose 250 ml @ 0 mls/hr Q24H IV 12/27/19 12:00 01/26/20 11:59 12/27/19 14:54 Sodium Chloride 1,000 ml @ 125 mls/hr Q8H IV 12/27/19 15:50 01/26/20 15:49 12/28/19 08:19 Vancomycin HCl ([facility] pharmacy to dose) 1 ea DAILY PRN MISC Per rx protocol 12/27/19 10:30 01/26/20 10:29 Claudy Acuna MD Dec 28, 2019 10:16
--- NOTE | 2019-12-28 10:40 | NUR ---
NURSE NOTES: architectural technologist at the bedside performing venous duplex of BL lower extremities.
[2019-12-28] MEDS ORDERED: Vancomycin 1.25gm/NS Premix IVPB ONE (12:00)
--- NOTE | 2019-12-28 12:10 | NUR ---
NURSE NOTES: Insulin drip held at this time for BS 87. Will recheck in 30 mins
--- NOTE | 2019-12-28 12:13 | Diagnostic Imaging Report ---
Indication: Leg edema and shortness of breath Technique: Grayscale and duplex images of the bilateral lower extremity veins Comparison: none Findings: On the left, grayscale and duplex images demonstrate thrombus within the femoral and popliteal veins, resulting in absence of flow on Doppler. The calf veins, common femoral and greater saphenous veins are patent. On the right, grayscale and duplex images demonstrate no evidence of intraluminal thrombus. Normal phasic Doppler waveforms, demonstrating normal augmentation response and no evidence of valvular insufficiency. Impression: Positive for left femoral and popliteal venous acute deep venous thrombosis Patient's nurse aware
--- NOTE | 2019-12-28 13:17 | NUR ---
NURSE NOTES: Left message for Dr Acuna informing him of phone call from Microbiology with results of Gram + Cocci in clusters in 1 bottle.
--- NOTE | 2019-12-28 14:00 | NUR ---
NURSE NOTES: BS 105. Insulin drip resumed at Algorithm 1, running @ 0.2units/hr
[2019-12-28] MEDS: NS IV SCH (14:27)
[2019-12-28] MEDS: PHENYLEPHRINE IV SCH (14:27)
--- NOTE | 2019-12-28 14:54 | Surgery Progress Note ---
Surgery Progress Note Subjective Additional Comments discussed with nephrology significantly improved hold HD for now Objective Last 24 Hour Vital Signs Date Time Temp Pulse Resp B/P (MAP) Pulse Ox O2 Delivery O2 Flow Rate FiO2 12/28/19 14:30 82 19 127/70 (89) 93 12/28/19 14:27 122/65 12/28/19 14:00 83 22 132/65 (87) 99 12/28/19 14:00 132/65 12/28/19 13:30 87 23 125/61 (82) 99 12/28/19 13:00 87 23 129/61 (83) 99 12/28/19 13:00 129/61 12/28/19 12:30 85 24 110/60 (77) 100 12/28/19 12:00 98.8 86 22 112/55 (74) 100 12/28/19 12:00 112/55 12/28/19 12:00 86 12/28/19 12:00 Venturi Mask 14.0 12/28/19 12:00 14.0 55 12/28/19 11:30 85 23 110/60 (77) 100 12/28/19 11:00 88 23 111/49 (69) 12/28/19 11:00 111/49 12/28/19 10:45 86 22 97/57 (70) 100 12/28/19 10:30 87 23 104/57 (73) 100 12/28/19 10:15 91 121/68 12/28/19 10:15 86 24 99/57 (71) 100 12/28/19 10:00 87 25 121/68 (85) 100 12/28/19 10:00 121/68 12/28/19 09:45 87 25 110/61 (77) 100 12/28/19 09:35 100 Venturi Mask 12.0 50 12/28/19 09:30 85 22 107/56 (73) 100 12/28/19 09:15 85 22 110/56 (74) 100 12/28/19 09:00 89 25 116/57 (76) 100 12/28/19 09:00 110/56 12/28/19 08:45 88 22 112/54 (73) 100 12/28/19 08:30 87 24 115/53 (73) 100 12/28/19 08:15 85 25 115/62 (79) 100 12/28/19 08:00 150/70 12/28/19 08:00 82 12/28/19 08:00 14.0 55 12/28/19 08:00 Venturi Mask 14.0 12/28/19 08:00 98.5 82 25 150/70 (96) 100 12/28/19 07:45 84 23 127/74 (91) 100 12/28/19 07:30 85 22 132/68 (89) 100 12/28/19 07:15 85 25 132/76 (94) 100 12/28/19 07:00 82 22 126/95 (105) 100 12/28/19 07:00 126/95 12/28/19 06:45 92 22 103/58 (73) 100 12/28/19 06:30 84 26 128/58 (81) 100 12/28/19 06:15 86 23 118/63 (81) 99 12/28/19 06:00 82 24 122/70 (87) 99 12/28/19 06:00 122/70 12/28/19 05:45 86 23 132/57 (82) 99 12/28/19 05:45 132/57 12/28/19 05:30 86 20 137/58 (84) 99 12/28/19 05:15 135/74 12/28/19 05:15 83 20 135/74 (94) 99 12/28/19 05:00 137/64 12/28/19 05:00 87 25 137/64 (88) 99 12/28/19 04:45 88 25 133/65 (87) 100 12/28/19 04:30 122/61 12/28/19 04:30 94 27 122/67 (85) 99 12/28/19 04:15 87 25 126/58 (80) 98 12/28/19 04:00 98.8 98 21 103/65 (78) 99 12/28/19 04:00 88 12/28/19 04:00 103/65 12/28/19 04:00 14.0 55 12/28/19 04:00 Venturi Mask 14.0 12/28/19 03:45 92 25 123/61 (81) 100 12/28/19 03:30 88 24 124/55 (78) 100 12/28/19 03:21 121/56 12/28/19 03:15 93 25 121/56 (77) 99 12/28/19 03:00 135/56 12/28/19 03:00 90 22 135/56 (82) 99 12/28/19 02:45 90 23 121/58 (79) 98 12/28/19 02:30 94 24 115/65 (82) 99 12/28/19 02:15 94 28 114/57 (76) 99 12/28/19 02:00 122/58 12/28/19 02:00 90 27 122/58 (79) 98 12/28/19 01:45 95 29 114/56 (75) 98 12/28/19 01:30 102 24 120/62 (81) 99 12/28/19 01:15 100 30 121/63 (82) 98 12/28/19 01:00 117/56 12/28/19 01:00 98 28 117/56 (76) 99 12/28/19 00:45 96 27 112/56 (74) 98 12/28/19 00:30 100 28 129/67 (87) 99 12/28/19 00:15 96 26 127/70 (89) 98 12/28/19 00:00 Venturi Mask 14.0 12/28/19 00:00 115/57 12/28/19 00:00 107 12/28/19 00:00 98.4 90 28 115/57 (76) 98 12/28/19 00:00 14.0 55 12/27/19 23:45 93 26 127/57 (80) 99 12/27/19 23:30 92 24 123/66 (85) 98 12/27/19 23:30 123/66 12/27/19 23:15 97 26 115/70 (85) 98 12/27/19 23:00 92 28 116/64 (81) 98 12/27/19 23:00 116/64 12/27/19 22:46 113/61 12/27/19 22:45 103 29 102/51 (68) 98 20 22:30 103 21 113/61 (78) 98 12/27/19 22:15 96 28 120/71 (87) 99 12/27/19 22:00 107 25 127/65 (85) 99 12/27/19 22:00 127/65 8/16/20 21:45 99 30 122/61 (81) 99 8/16/20 21:30 97 28 120/57 (78) 98 8/16/20 21:15 95 27 125/62 (83) 98 8/16/20 21:00 123/58 8/16/20 21:00 96 28 123/58 (79) 98 8/16/20 20:45 108 27 116/56 (76) 97 8/16/20 20:30 106 28 118/58 (78) 98 8/16/20 20:15 102 27 120/62 (81) 99 8/16/20 20:00 127/55 816/20 20:00 14.0 55 8/16/20 20:00 Venturi Mask 14.0 16/20 20:00 98 8/16/20 20:00 98.3 94 25 127/55 (79) 97 8/16/20 19:30 94 28 110/53 (72) 98 816/20 19:00 114/61 816/20 19:00 98 29 110/58 (75) 98 8/16/20 18:30 98 28 118/66 (83) 99 816/20 18:15 111/55 816/20 18:14 111/55 16/20 18:08 85/45 816/20 18:00 98.2 95 25 111/55 (73) 99 8/16/20 17:30 101 30 112/58 (76) 98 816/20 17:08 95/54 16/20 17:00 98 31 107/56 (73) 98 8/16/20 16:30 97 28 106/55 (72) 99 816/20 16:08 109/53 1620 16:00 Venturi Mask 14.0 1620 16:00 14.0 55 81620 16:00 106/53 816/20 16:00 101 28 109/53 (71) 98 8/16/20 15:45 103 28 95/54 (68) 98 8/16/20 15:30 109 26 98/52 (67) 98 816/20 15:15 97 27 97/53 (68) 98 8/16/20 15:14 88 8/16/20 15:00 98/52 12/27/19 15:00 103 29 90/49 (63) 97 I&O Intake and Output 12/27/19 12/28/19 19:00 07:00 Intake Total 2897.4800 ml 2891.63 ml Output Total 690 ml 2575 ml Balance 2207.4800 ml 316.63 ml Intake IV Total 2897.4800 ml 2891.63 ml Output Urine Total 690 ml 2575 ml # Voids 320 # Bowel Movements 3 2 Cardiovascular: RSR Respiratory: decreased breath sounds Abdomen: soft, non-tender, present bowel sounds Extremities: edema, no tenderness, no cyanosis Laboratory Tests Test 12/28/19 05:25 12/28/19 07:00 12/28/19 07:44 White Blood Count 16.1 K/UL (4.8-10.8) H Red Blood Count 4.13 M/UL (4.70-6.10) L Hemoglobin 12.6 G/DL (14.2-18.0) L Hematocrit 38.1 % (42.0-52.0) L Mean Corpuscular Volume 92 FL (80-99) Mean Corpuscular Hemoglobin 30.4 PG (27.0-31.0) Mean Corpuscular Hemoglobin Concent 33.0 G/DL (32.0-36.0) Red Cell Distribution Width 13.3 % (11.6-14.8) Platelet Count 163 K/UL (150-450) Mean Platelet Volume 7.2 FL (6.5-10.1) Neutrophils (%) (Auto) % (45.0-75.0) Lymphocytes (%) (Auto) % (20.0-45.0) Monocytes (%) (Auto) % (1.0-10.0) Eosinophils (%) (Auto) % (0.0-3.0) Basophils (%) (Auto) % (0.0-2.0) Differential Total Cells Counted 100 Neutrophils % (Manual) 93 % (45-75) H Lymphocytes % (Manual) 2 % (20-45) L Monocytes % (Manual) 5 % (1-10) Eosinophils % (Manual) 0 % (0-3) Basophils % (Manual) 0 % (0-2) Band Neutrophils 0 % (0-8) Platelet Estimate Adequate Platelet Morphology Normal Red Blood Cell Morphology Normal Sodium Level 135 MMOL/L (136-145) L Potassium Level 3.5 MMOL/L (3.5-5.1) Chloride Level 99 MMOL/L (98-107) Carbon Dioxide Level 21 MMOL/L (21-32) Anion Gap 15 mmol/L (5-15) Blood Urea Nitrogen 120 mg/dL (7-18) H Creatinine 3.7 MG/DL (0.55-1.30) H Estimat Glomerular Filtration Rate 16.7 mL/min (>60) Glucose Level 437 MG/DL (74-106) #H Uric Acid 10.2 MG/DL (2.6-7.2) H Calcium Level 8.2 MG/DL (8.5-10.1) L Phosphorus Level 4.1 MG/DL (2.5-4.9) Magnesium Level 2.6 MG/DL (1.8-2.4) H Total Bilirubin 1.0 MG/DL (0.2-1.0) Aspartate Amino Transf (AST/SGOT) 27 U/L (15-37) Alanine Aminotransferase (ALT/SGPT) 31 U/L (12-78) Alkaline Phosphatase 89 U/L (46-116) C-Reactive Protein, Quantitative 12.9 mg/dL (0.00-0.90) H Pro-B-Type Natriuretic Peptide 6198 pg/mL (0-125) H Total Protein 7.1 G/DL (6.4-8.2) Albumin 2.9 G/DL (3.4-5.0) L Globulin 4.2 g/dL Albumin/Globulin Ratio 0.7 (1.0-2.7) L Random Vancomycin Level 5.4 ug/mL Urine Eosinophils None seen (NONE SEEN) Arterial Blood pH 7.392 (7.350-7.450) Arterial Blood Partial Pressure CO2 33.1 mmHg (35.0-45.0) L Arterial Blood Partial Pressure O2 108.1 mmHg (75.0-100.0) H Arterial Blood HCO3 19.7 mmol/L (22.0-26.0) L Arterial Blood Oxygen Saturation 98.0 % (95-100) Arterial Blood Base Excess -4.4 (-2-2) L Vinay Test Positive Plan Problems: (1) Septic shock Assessment & Plan: 64M septic shock respiratory insufficiency, leukocytosis, abnormal labs, acute renal insufficiency. uop 50cc/hr currently on pressors in critical condition patient may need HD soon but currently too unstable on pressors to tolerate HD discussed with renal and nursing staff hold on HD line until more stable to receive HD consent obtained from family will monitor closely thank you trend labs wean pressors respiratory support improved with hydration monitor labs hld HD Right IJ central venous catheter terminates in the superior vena cava. Patchy airspace opacity throughout the left lower lung field, consistent with infiltrate. Follow-up chest radiograph recommended. No pleural effusion or pneumothorax. (2) Lobar pneumonia (3) Diabetes (4) CHF (congestive heart failure) (5) Hyponatremia (6) Renal failure (7) Obesity (8) HTN (hypertension) (9) HLD (hyperlipidemia) (10) NSTEMI (non-ST elevated myocardial infarction) (11) Sepsis with acute hypoxic respiratory failure (12) Pneumonia due to COVID-19 virus Collins Ford Dec 28, 2019 14:54
[2019-12-28] MEDS: Norepinephrine Premix 4mg/NS 250mL IV SCH (15:00)
--- NOTE | 2019-12-28 15:15 | NUR ---
*-* INSURANCE *-* UPDATED CLINICALS AND REVIEWS HAVE BEEN FAXED TO: [facility] AUTH#[id number] P:[phone] F:[phone]
--- NOTE | 2019-12-28 15:20 | NUR ---
NURSE NOTES: Dr Mendoza and Dr Ash informed of Venous duplex results= Left lower extremity DVT. Dr Morales at bedside assessing pt. Updated him on 2D echo and venous duplex results. No new orders given at this time.
--- NOTE | 2019-12-28 16:09 | Pulmonology Progress Note ---
Subjective ROS Limited/Unobtainable: Yes Interval Events: Seen in ICU Constitutional: Reports: no symptoms; Denies: fever HEENT: Repors: no symptoms Respiratory: Reports: no symptoms Cardiovascular: Reports: no symptoms Gastrointestinal/Abdominal: Reports: no symptoms Genitourinary: Reports: no symptoms Allergies: Coded Allergies: PENICILLINS (Verified Allergy, Unknown, 12/27/19) Objective Last 24 Hour Vital Signs Date Time Temp Pulse Resp B/P (MAP) Pulse Ox O2 Delivery O2 Flow Rate FiO2 12/28/19 15:00 138/64 12/28/19 14:30 82 19 127/70 (89) 93 12/28/19 14:27 122/65 12/28/19 14:00 83 22 132/65 (87) 99 12/28/19 14:00 132/65 12/28/19 13:30 87 23 125/61 (82) 99 12/28/19 13:00 87 23 129/61 (83) 99 12/28/19 13:00 129/61 12/28/19 12:30 85 24 110/60 (77) 100 12/28/19 12:00 98.8 86 22 112/55 (74) 100 12/28/19 12:00 112/55 12/28/19 12:00 86 12/28/19 12:00 Venturi Mask 14.0 12/28/19 12:00 14.0 55 12/28/19 11:30 85 23 110/60 (77) 100 12/28/19 11:00 88 23 111/49 (69) 12/28/19 11:00 111/49 12/28/19 10:45 86 22 97/57 (70) 100 12/28/19 10:30 87 23 104/57 (73) 100 12/28/19 10:15 91 121/68 12/28/19 10:15 86 24 99/57 (71) 100 12/28/19 10:00 87 25 121/68 (85) 100 12/28/19 10:00 121/68 12/28/19 09:45 87 25 110/61 (77) 100 12/28/19 09:35 100 Venturi Mask 12.0 50 12/28/19 09:30 85 22 107/56 (73) 100 12/28/19 09:15 85 22 110/56 (74) 100 12/28/19 09:00 89 25 116/57 (76) 100 12/28/19 09:00 110/56 12/28/19 08:45 88 22 112/54 (73) 100 12/28/19 08:30 87 24 115/53 (73) 100 12/28/19 08:15 85 25 115/62 (79) 100 12/28/19 08:00 150/70 12/28/19 08:00 82 12/28/19 08:00 14.0 55 12/28/19 08:00 Venturi Mask 14.0 12/28/19 08:00 98.5 82 25 150/70 (96) 100 12/28/19 07:45 84 23 127/74 (91) 100 12/28/19 07:30 85 22 132/68 (89) 100 12/28/19 07:15 85 25 132/76 (94) 100 12/28/19 07:00 82 22 126/95 (105) 100 12/28/19 07:00 126/95 12/28/19 06:45 92 22 103/58 (73) 100 12/28/19 06:30 84 26 128/58 (81) 100 12/28/19 06:15 86 23 118/63 (81) 99 12/28/19 06:00 82 24 122/70 (87) 99 12/28/19 06:00 122/70 12/28/19 05:45 86 23 132/57 (82) 99 12/28/19 05:45 132/57 12/28/19 05:30 86 20 137/58 (84) 99 12/28/19 05:15 135/74 12/28/19 05:15 83 20 135/74 (94) 99 12/28/19 05:00 137/64 12/28/19 05:00 87 25 137/64 (88) 99 12/28/19 04:45 88 25 133/65 (87) 100 12/28/19 04:30 122/61 12/28/19 04:30 94 27 122/67 (85) 99 12/28/19 04:15 87 25 126/58 (80) 98 12/28/19 04:00 98.8 98 21 103/65 (78) 99 12/28/19 04:00 88 12/28/19 04:00 103/65 12/28/19 04:00 14.0 55 12/28/19 04:00 Venturi Mask 14.0 12/28/19 03:45 92 25 123/61 (81) 100 12/28/19 03:30 88 24 124/55 (78) 100 12/28/19 03:21 121/56 12/28/19 03:15 93 25 121/56 (77) 99 12/28/19 03:00 135/56 12/28/19 03:00 90 22 135/56 (82) 99 12/28/19 02:45 90 23 121/58 (79) 98 12/28/19 02:30 94 24 115/65 (82) 99 12/28/19 02:15 94 28 114/57 (76) 99 12/28/19 02:00 122/58 12/28/19 02:00 90 27 122/58 (79) 98 12/28/19 01:45 95 29 114/56 (75) 98 12/28/19 01:30 102 24 120/62 (81) 99 12/28/19 01:15 100 30 121/63 (82) 98 12/28/19 01:00 117/56 12/28/19 01:00 98 28 117/56 (76) 99 12/28/19 00:45 96 27 112/56 (74) 98 12/28/19 00:30 100 28 129/67 (87) 99 12/28/19 00:15 96 26 127/70 (89) 98 12/28/19 00:00 Venturi Mask 14.0 12/28/19 00:00 115/57 12/28/19 00:00 107 12/28/19 00:00 98.4 90 28 115/57 (76) 98 12/28/19 00:00 14.0 55 12/27/19 23:45 93 26 127/57 (80) 99 12/27/19 23:30 92 24 123/66 (85) 98 12/27/19 23:30 123/66 12/27/19 23:15 97 26 115/70 (85) 98 12/27/19 23:00 92 28 116/64 (81) 98 12/27/19 23:00 116/64 12/27/19 22:46 113/61 8/16/20 22:45 103 29 102/51 (68) 98 [id number] 22:30 103 21 113/61 (78) 98 20 22:15 96 28 120/71 (87) 99 20 22:00 107 25 127/65 (85) 99 20 22:00 127/65 12/27/19 21:45 99 30 122/61 (81) 99 20 21:30 97 28 120/57 (78) 98 20 21:15 95 27 125/62 (83) 98 20 21:00 123/58 20 21:00 96 28 123/58 (79) 98 12/27/19 20:45 108 27 116/56 (76) 97 12/27/19 20:30 106 28 118/58 (78) 98 12/27/19 20:15 102 27 120/62 (81) 99 12/27/19 20:00 127/55 12/27/19 20:00 14.0 55 12/27/19 20:00 Venturi Mask 14.0 12/27/19 20:00 98 12/27/19 20:00 98.3 94 25 127/55 (79) 97 12/27/19 19:30 94 28 110/53 (72) 98 12/27/19 19:00 114/61 12/27/19 19:00 98 29 110/58 (75) 98 12/27/19 18:30 98 28 118/66 (83) 99 12/27/19 18:15 111/55 12/27/19 18:14 111/55 12/27/19 18:08 85/45 12/27/19 18:00 98.2 95 25 111/55 (73) 99 20 17:30 101 30 112/58 (76) 98 20 17:08 95/54 12/27/19 17:00 98 31 107/56 (73) 98 12/27/19 16:30 97 28 106/55 (72) 99 Intake and Output 12/27/1920 19:00 07:00 Intake Total 2897.4800 ml 2891.63 ml Output Total 690 ml 2575 ml Balance 2207.4800 ml 316.63 ml Intake IV Total 2897.4800 ml 2891.63 ml Output Urine Total 690 ml 2575 ml # Voids 320 # Bowel Movements 3 2 General Appearance: no acute distress HEENT: normocephalic Respiratory: chest wall non-tender, decreased breath sounds Cardiovascular: normal peripheral pulses Abdomen: normal bowel sounds Microbiology Date/Time Source Procedure Growth Status 12/27/19 03:50 Blood Blood Culture - Preliminary Resulted 12/27/19 04:45 Nasopharynx SARS-CoV-2 RdRp Gene Assay - Final Complete 12/27/19 05:30 Indwelling Cath Urine Culture - Preliminary Resulted Laboratory Tests 12/28/19 05:25: White Blood Count 16.1H, Red Blood Count 4.13L, Hemoglobin 12.6L, Hematocrit 38.1L, Mean Corpuscular Volume 92, Mean Corpuscular Hemoglobin 30.4, Mean Corpuscular Hemoglobin Concent 33.0, Red Cell Distribution Width 13.3, Platelet Count 163, Mean Platelet Volume 7.2, Neutrophils (%) (Auto) , Lymphocytes (%) ( Auto) , Monocytes (%) (Auto) , Eosinophils (%) (Auto) , Basophils (%) (Auto) , Differential Total Cells Counted 100, Neutrophils % (Manual) 93H, Lymphocytes % (Manual) 2L, Monocytes % (Manual) 5, Eosinophils % (Manual) 0, Basophils % ( Manual) 0, Band Neutrophils 0, Platelet Estimate Adequate, Platelet Morphology Normal, Red Blood Cell Morphology Normal, Sodium Level 135L, Potassium Level 3.5 , Chloride Level 99, Carbon Dioxide Level 21, Anion Gap 15, Blood Urea Nitrogen 120H, Creatinine 3.7H, Estimat Glomerular Filtration Rate 16.7, Glucose Level 437#H, Uric Acid 10.2H, Calcium Level 8.2L, Phosphorus Level 4.1, Magnesium Level 2.6H, Total Bilirubin 1.0, Aspartate Amino Transf (AST/SGOT) 27, Alanine Aminotransferase (ALT/SGPT) 31, Alkaline Phosphatase 89, C-Reactive Protein, Quantitative 12.9H, Pro-B-Type Natriuretic Peptide 6198H, Total Protein 7.1, Albumin 2.9L, Globulin 4.2, Albumin/Globulin Ratio 0.7L, Random Vancomycin Level 5.4 12/28/19 07:00: Urine Eosinophils None seen 12/28/19 07:44: Arterial Blood pH 7.392, Arterial Blood Partial Pressure CO2 33.1L, Arterial Blood Partial Pressure O2 108.1H, Arterial Blood HCO3 19.7L, Arterial Blood Oxygen Saturation 98.0, Arterial Blood Base Excess -4.4L, Vinay Test Positive Current Medications Medications (Trade) Dose Ordered Sig/Susana Route PRN Reason Start Time Stop Time Status Last Admin Dose Admin Acetaminophen (Tylenol) 500 mg Q4H PRN ORAL Mild Pain (Pain Scale 1-3) 12/27/19 07:00 01/26/20 06:59 Albumin Human 100 ml @ 100 mls/hr Q6H IV 12/27/19 16:15 12/28/19 23:14 12/28/19 15:01 Apixaban (Eliquis) 2.5 mg BID ORAL 12/27/19 10:00 03/26/20 09:59 12/28/19 08:17 Aztreonam 0.5 gm/ Sodium Chloride 55 ml @ 110 mls/hr Q8HR IVPB 12/28/19 22:00 01/04/20 21:59 Chlorhexidine Gluconate (Ally-Hex 2%) 1 applic DAILY@2000 TOPIC 12/27/19 20:00 03/26/20 19:59 12/27/19 19:59 Dextrose (Dextrose 50%) 25 ml Q30M PRN IV HYPOGLYCEMIA 12/28/19 08:00 03/27/20 07:59 Dextrose (Dextrose 50%) 50 ml Q30M PRN IV HYPOGLYCEMIA 12/28/19 08:00 03/27/20 07:59 Insulin Human (Reg)/Sodium Chloride 100 ml @ 0 mls/hr Q24H IVPB 12/28/19 12:50 03/27/20 12:49 12/28/19 14:00 Insulin Human Regular (NovoLIN R) 5 units PRN PRN IV BS 200-299 12/28/19 08:00 03/27/20 07:59 12/28/19 10:14 Insulin Human Regular (NovoLIN R) 10 units PRN PRN IV BS=>300 12/28/19 08:00 03/27/20 07:59 12/28/19 08:19 Levofloxacin 100 ml @ 100 mls/hr Q48H IVPB 12/27/19 12:30 01/03/20 12:29 12/27/19 12:17 Miscellaneous Medication (Insulin Rate Change) 1 ea PRN PRN MISC Sliding Scale 12/28/19 08:00 03/27/20 07:59 Norepinephrine Bitartrate 250 ml @ 0 mls/hr Q24H IV 12/28/19 15:00 03/27/20 14:59 12/28/19 15:00 Pantoprazole (Protonix) 40 mg Q12HR IVP 12/27/19 21:00 01/27/20 08:59 12/28/19 08:17 Phenylephrine HCl 50 mg/Sodium Chloride 250 ml @ 0 mls/hr Q24H IV 12/28/19 14:30 01/27/20 14:29 Sodium Chloride 1,000 ml @ 125 mls/hr Q8H IV 12/27/19 15:50 01/26/20 15:49 12/28/19 15:01 Vancomycin HCl ([facility] pharmacy to dose) 1 ea DAILY PRN MISC Per rx protocol 12/27/19 10:30 01/26/20 10:29 Assessment/Plan Assessment/Plan Multifocal pneumonia Hypoxemic respiratory failure Toxic metabolic encephalopathy Leukocytosis Metabolic acidosis Acidemia Hyponatremia Acute on chronic renal failure Severe protein calorie malnutrition Elevated troponin, possible non-STEMI Plan IV hydration Oxygen therspy Empiric antibiotics Titrate oxygen Arterial gases noted Bicarb infusion Monitor for aspiration Neville Ash MD Dec 28, 2019 16:08
--- NOTE | 2019-12-28 16:19 | Cardiac Electrophysiology PN ---
Assessment/Plan Assessment/Plan 1. Septic shock. Patient is already on iv Abx, Levophed as well as IV fluid 100 mL an hour. 2. Resp failure on FM 14 liters 3. Troponin elevation, likely due to renal failure. Does not have any chest pain. Repeat the troponin for further evaluation. His echocardiogram showed EF of 55%. 4. DVT. On Eliquis 2.5 mg b.i.d. 5. History of recent COVID pneumonia. Rapid COVID is negative. 6. Acute renal failure, on IV fluids per Dr. Markham. Subjective Subjective Confused in restraints. Has LLE DVT on Eliquis. On Levo 2 Mcg and 14 liter FM. Echo Nl EF Objective Last 24 Hour Vital Signs Date Time Temp Pulse Resp B/P (MAP) Pulse Ox O2 Delivery O2 Flow Rate FiO2 12/28/19 15:30 88 23 125/63 (83) 12/28/19 15:15 84 18 137/61 (86) 12/28/19 15:00 84 20 121/60 (80) 92 12/28/19 15:00 138/64 12/28/19 14:30 82 19 127/70 (89) 93 12/28/19 14:27 122/65 12/28/19 14:00 83 22 132/65 (87) 99 12/28/19 14:00 132/65 12/28/19 13:30 87 23 125/61 (82) 99 12/28/19 13:00 87 23 129/61 (83) 99 12/28/19 13:00 129/61 12/28/19 12:30 85 24 110/60 (77) 100 12/28/19 12:00 98.8 86 22 112/55 (74) 100 12/28/19 12:00 112/55 12/28/19 12:00 86 12/28/19 12:00 Venturi Mask 14.0 12/28/19 12:00 14.0 55 12/28/19 11:30 85 23 110/60 (77) 100 12/28/19 11:00 88 23 111/49 (69) 12/28/19 11:00 111/49 12/28/19 10:45 86 22 97/57 (70) 100 12/28/19 10:30 87 23 104/57 (73) 100 12/28/19 10:15 91 121/68 12/28/19 10:15 86 24 99/57 (71) 100 12/28/19 10:00 87 25 121/68 (85) 100 12/28/19 10:00 121/68 12/28/19 09:45 87 25 110/61 (77) 100 12/28/19 09:35 100 Venturi Mask 12.0 50 12/28/19 09:30 85 22 107/56 (73) 100 12/28/19 09:15 85 22 110/56 (74) 100 12/28/19 09:00 89 25 116/57 (76) 100 12/28/19 09:00 110/56 12/28/19 08:45 88 22 112/54 (73) 100 12/28/19 08:30 87 24 115/53 (73) 100 12/28/19 08:15 85 25 115/62 (79) 100 12/28/19 08:00 150/70 12/28/19 08:00 82 12/28/19 08:00 14.0 55 12/28/19 08:00 Venturi Mask 14.0 12/28/19 08:00 98.5 82 25 150/70 (96) 100 12/28/19 07:45 84 23 127/74 (91) 100 12/28/19 07:30 85 22 132/68 (89) 100 12/28/19 07:15 85 25 132/76 (94) 100 12/28/19 07:00 82 22 126/95 (105) 100 12/28/19 07:00 126/95 12/28/19 06:45 92 22 103/58 (73) 100 12/28/19 06:30 84 26 128/58 (81) 100 12/28/19 06:15 86 23 118/63 (81) 99 12/28/19 06:00 82 24 122/70 (87) 99 12/28/19 06:00 122/70 12/28/19 05:45 86 23 132/57 (82) 99 12/28/19 05:45 132/57 12/28/19 05:30 86 20 137/58 (84) 99 12/28/19 05:15 135/74 12/28/19 05:15 83 20 135/74 (94) 99 12/28/19 05:00 137/64 12/28/19 05:00 87 25 137/64 (88) 99 12/28/19 04:45 88 25 133/65 (87) 100 12/28/19 04:30 122/61 12/28/19 04:30 94 27 122/67 (85) 99 12/28/19 04:15 87 25 126/58 (80) 98 12/28/19 04:00 98.8 98 21 103/65 (78) 99 12/28/19 04:00 88 12/28/19 04:00 103/65 12/28/19 04:00 14.0 55 12/28/19 04:00 Venturi Mask 14.0 12/28/19 03:45 92 25 123/61 (81) 100 12/28/19 03:30 88 24 124/55 (78) 100 12/28/19 03:21 121/56 12/28/19 03:15 93 25 121/56 (77) 99 12/28/19 03:00 135/56 12/28/19 03:00 90 22 135/56 (82) 99 12/28/19 02:45 90 23 121/58 (79) 98 12/28/19 02:30 94 24 115/65 (82) 99 12/28/19 02:15 94 28 114/57 (76) 99 12/28/19 02:00 122/58 12/28/19 02:00 90 27 122/58 (79) 98 12/28/19 01:45 95 29 114/56 (75) 98 12/28/19 01:30 102 24 120/62 (81) 99 12/28/19 01:15 100 30 121/63 (82) 98 12/28/19 01:00 117/56 12/28/19 01:00 98 28 117/56 (76) 99 12/28/19 00:45 96 27 112/56 (74) 98 12/28/19 00:30 100 28 129/67 (87) 99 12/28/19 00:15 96 26 127/70 (89) 98 12/28/19 00:00 Venturi Mask 14.0 12/28/19 00:00 115/57 12/28/19 00:00 107 12/28/19 00:00 98.4 90 28 115/57 (76) 98 /1720 00:00 14.0 55 81620 23:45 93 26 127/57 (80) 99 81620 23:30 92 24 123/66 (85) 98 81620 23:30 123/66 81620 23:15 97 26 115/70 (85) 98 8/1620 23:00 92 28 116/64 (81) 98 1620 23:00 116/64 20 22:46 113/61 81620 22:45 103 29 102/51 (68) 98 81620 22:30 103 21 113/61 (78) 98 1620 22:15 96 28 120/71 (87) 99 20 22:00 107 25 127/65 (85) 99 20 22:00 127/65 12/27/19 21:45 99 30 122/61 (81) 99 12/27/19 21:30 97 28 120/57 (78) 98 20 21:15 95 27 125/62 (83) 98 1620 21:00 123/58 20 21:00 96 28 123/58 (79) 98 20 20:45 108 27 116/56 (76) 97 20 20:30 106 28 118/58 (78) 98 1620 20:15 102 27 120/62 (81) 99 1620 20:00 127/55 12/27/19 20:00 14.0 55 20 20:00 Venturi Mask 14.0 12/27/19 20:00 98 1620 20:00 98.3 94 25 127/55 (79) 97 81620 19:30 94 28 110/53 (72) 98 1620 19:00 114/61 20 19:00 98 29 110/58 (75) 98 1620 18:30 98 28 118/66 (83) 99 1620 18:15 111/55 1620 18:14 111/55 1620 18:08 85/45 16 18:00 98.2 95 25 111/55 (73) 99 12/27/19 17:30 101 30 112/58 (76) 98 12/27/19 17:08 95/54 12/27/19 17:00 98 31 107/56 (73) 98 12/27/19 16:30 97 28 106/55 (72) 99 Intake and Output 12/27/19 12/28/19 19:00 07:00 Intake Total 2897.4800 ml 2891.63 ml Output Total 690 ml 2575 ml Balance 2207.4800 ml 316.63 ml Intake IV Total 2897.4800 ml 2891.63 ml Output Urine Total 690 ml 2575 ml # Voids 320 # Bowel Movements 3 2 Laboratory Tests Test 12/28/19 05:25 12/28/19 07:00 12/28/19 07:44 White Blood Count 16.1 K/UL (4.8-10.8) H Red Blood Count 4.13 M/UL (4.70-6.10) L Hemoglobin 12.6 G/DL (14.2-18.0) L Hematocrit 38.1 % (42.0-52.0) L Mean Corpuscular Volume 92 FL (80-99) Mean Corpuscular Hemoglobin 30.4 PG (27.0-31.0) Mean Corpuscular Hemoglobin Concent 33.0 G/DL (32.0-36.0) Red Cell Distribution Width 13.3 % (11.6-14.8) Platelet Count 163 K/UL (150-450) Mean Platelet Volume 7.2 FL (6.5-10.1) Neutrophils (%) (Auto) % (45.0-75.0) Lymphocytes (%) (Auto) % (20.0-45.0) Monocytes (%) (Auto) % (1.0-10.0) Eosinophils (%) (Auto) % (0.0-3.0) Basophils (%) (Auto) % (0.0-2.0) Differential Total Cells Counted 100 Neutrophils % (Manual) 93 % (45-75) H Lymphocytes % (Manual) 2 % (20-45) L Monocytes % (Manual) 5 % (1-10) Eosinophils % (Manual) 0 % (0-3) Basophils % (Manual) 0 % (0-2) Band Neutrophils 0 % (0-8) Platelet Estimate Adequate Platelet Morphology Normal Red Blood Cell Morphology Normal Sodium Level 135 MMOL/L (136-145) L Potassium Level 3.5 MMOL/L (3.5-5.1) Chloride Level 99 MMOL/L (98-107) Carbon Dioxide Level 21 MMOL/L (21-32) Anion Gap 15 mmol/L (5-15) Blood Urea Nitrogen 120 mg/dL (7-18) H Creatinine 3.7 MG/DL (0.55-1.30) H Estimat Glomerular Filtration Rate 16.7 mL/min (>60) Glucose Level 437 MG/DL (74-106) #H Uric Acid 10.2 MG/DL (2.6-7.2) H Calcium Level 8.2 MG/DL (8.5-10.1) L Phosphorus Level 4.1 MG/DL (2.5-4.9) Magnesium Level 2.6 MG/DL (1.8-2.4) H Total Bilirubin 1.0 MG/DL (0.2-1.0) Aspartate Amino Transf (AST/SGOT) 27 U/L (15-37) Alanine Aminotransferase (ALT/SGPT) 31 U/L (12-78) Alkaline Phosphatase 89 U/L (46-116) C-Reactive Protein, Quantitative 12.9 mg/dL (0.00-0.90) H Pro-B-Type Natriuretic Peptide 6198 pg/mL (0-125) H Total Protein 7.1 G/DL (6.4-8.2) Albumin 2.9 G/DL (3.4-5.0) L Globulin 4.2 g/dL Albumin/Globulin Ratio 0.7 (1.0-2.7) L Random Vancomycin Level 5.4 ug/mL Urine Eosinophils None seen (NONE SEEN) Arterial Blood pH 7.392 (7.350-7.450) Arterial Blood Partial Pressure CO2 33.1 mmHg (35.0-45.0) L Arterial Blood Partial Pressure O2 108.1 mmHg (75.0-100.0) H Arterial Blood HCO3 19.7 mmol/L (22.0-26.0) L Arterial Blood Oxygen Saturation 98.0 % (95-100) Arterial Blood Base Excess -4.4 (-2-2) L Vinay Test Positive Microbiology Date/Time Source Procedure Growth Status 12/27/19 03:50 Blood Blood Culture - Preliminary Resulted 12/27/19 04:45 Nasopharynx SARS-CoV-2 RdRp Gene Assay - Final Complete 12/27/19 05:30 Indwelling Cath Urine Culture - Preliminary Resulted Objective HEAD AND NECK: Shows mild JVD. LUNGS: Coarse rhonchi. CARDIOVASCULAR: Shows tachycardic S1 and S2 with no gallop. ABDOMEN: Soft. EXTREMITIES: No pitting edema. Agustin Morales MD Dec 28, 2019 16:19
--- NOTE | 2019-12-28 16:50 | NUR ---
CASE MANAGEMENT:REVIEW 12/28/19 SI:COVID PNEUMONIA. SEPTIC SHOCK. ACUTE HYPOXIC RESP FAILURE. N-STEMI. RENAL FAILURE. 98.8 85 92 131/64 99% VENTURI MASK 14L IS;IV VANCO X1 HUMAN REG INSULIN GTT IV ALBUMIN HUMAN X6 BAGS IV NS @125ML/HR IV LEVOPHED PROTOCOL ELIQUIS PO BID NOVOLIN R SS IV PROTONIX BID IV LEVAQUIN Q48HR DCP: CV [facility]
--- NOTE | 2019-12-28 17:08 | NUR ---
*-* INSURANCE *-* UPDATED CLINICALS AND REVIEWS HAVE BEEN FAXED TO: [facility]IED [facility]./[facility] AUTH#[id number] P:[phone] F:[phone]
--- NOTE | 2019-12-28 17:30 | NUR ---
NURSE NOTES: Pt fully cleaned and linens changed. Pt had a small soft bowel movement. Pt remains on a Venturi mask @ 14L, 50% FiO2. O2Sat 100%. Pt off of Levophed at this time. SBP maintaining above 90.
--- NOTE | 2019-12-28 18:10 | NUR ---
NURSE NOTES: BS 165. Pt remains on Insulin drip at Algorithm 1, infusing at 1.2 units/hr.
[2019-12-28] MEDS ORDERED: ELIQUIS5 MG PO (18:38)
[2019-12-28] MEDS ORDERED: GLUCERNA HUNGE340 ML PO (18:38)
[2019-12-28] MEDS ORDERED: ACETAZOLAMIDE250 MG ORAL (18:38)
[2019-12-28] MEDS ORDERED: ZINC SULFATE220 M1 ORAL (18:38)
--- NOTE | 2019-12-28 19:28 | NUR ---
NURSE HAND-OFF REPORT: Latest Vital Signs: Temperature 98.8 , Pulse 85 , B/P 136 /72 , Respiratory Rate 21 , O2 SAT 100 , Venturi Mask, O2 Flow Rate 14.0 . Vital Sign Comment: EKG Rhythm: Atrial Fibrillation Rhythm change?: N Notified?: N Response: Latest Cook Fall Score: 50 Fall Risk: High Risk Safety Measures: Call light Within Reach, Bed Alarm Zone 2, Side Rails Side Rails x2, Bed position Low and Locked. Fall Precautions: Yellow Socks Yellow Gown Door Sign Patient Fall Education Report given to CHRISTINA Bonilla.
--- NOTE | 2019-12-28 19:30 | NUR ---
NURSE NOTES: Received pt with eyes close, followed simple command speaks Kyrgyz only, bilateral soft wrist restraints on for safety to avoid pulling out therapeutic devices. On insulin drip at tis time at 1.2u/hr, algorithm 1. NPO at this time. Oral care done. Afib on the monitor bp stable, afebrile. Will continue to monitor.
[2019-12-28] MEDS: Dyna-Hex 2% Top Sol 2oz TOPIC SCH (20:24)
--- NOTE | 2019-12-28 21:00 | NUR ---
NURSE NOTES: Had x1 lg bowel movement, cleaned up pt.
[2019-12-28] MEDS: Insulin Rate Change 1 Each MISC PRN ×3 (21:25→23:20)
--- NOTE | 2019-12-28 22:23 | General Progress Note ---
Assessment/Plan Problem List: (1) Lobar pneumonia ICD Codes: J18.1 - Lobar pneumonia, unspecified organism SNOMED: 689075241, 491249176, 005717948 (2) Septic shock ICD Codes: A41.9 - Sepsis, unspecified organism; R65.21 - Severe sepsis with septic shock SNOMED: 90243518, 818948771, 642042406 (3) Diabetes ICD Codes: E11.9 - Type 2 diabetes mellitus without complications SNOMED: 30402205, 923403950, 602418283 (4) Hyponatremia ICD Codes: E87.1 - Hypo-osmolality and hyponatremia SNOMED: 08995829, 437107379, 803407777 (5) Renal failure ICD Codes: N19 - Unspecified kidney failure SNOMED: 56172589, 919145240, 146377214 (6) NSTEMI (non-ST elevated myocardial infarction) ICD Codes: I21.4 - Non-ST elevation (NSTEMI) myocardial infarction SNOMED: 54508752, 136860467, 818360257 (7) Pneumonia due to COVID-19 virus ICD Codes: U07.1 - COVID-19; J12.89 - Other viral pneumonia; J96.01 - Acute respiratory failure with hypoxia SNOMED: 744621259, 424559713, 468107893 (8) Sepsis with acute hypoxic respiratory failure ICD Codes: A41.9 - Sepsis, unspecified organism; R65.20 - Severe sepsis without septic shock; J96.01 - Acute respiratory failure with hypoxia SNOMED: 601682647, 23192836, 655508060 (9) Dehydration ICD Codes: E86.0 - Dehydration SNOMED: 77141851 (10) Renal failure (ARF), acute on chronic ICD Codes: N17.9 - Acute kidney failure, unspecified; N18.9 - Chronic kidney disease, unspecified SNOMED: 557832401 Assessment/Plan: septic shock on pressors covid positive resp insuff afebrile no acute events Subjective ROS Limited/Unobtainable: Yes Allergies: Coded Allergies: PENICILLINS (Verified Allergy, Unknown, 12/27/19) Objective Last 24 Hour Vital Signs Date Time Temp Pulse Resp B/P (MAP) Pulse Ox O2 Delivery O2 Flow Rate FiO2 12/28/19 19:00 85 21 136/72 (93) 100 12/28/19 18:30 85 19 123/64 (83) 100 12/28/19 18:00 83 20 139/66 (90) 100 12/28/19 17:30 85 19 126/72 (90) 100 12/28/19 17:00 79 18 129/61 (83) 100 12/28/19 16:30 80 20 133/65 (87) 100 12/28/19 16:15 96 22 140/116 (124) 99 12/28/19 16:00 14.0 55 12/28/19 16:00 Venturi Mask 14.0 12/28/19 16:00 98.8 85 19 131/64 (86) 99 12/28/19 16:00 92 12/28/19 15:45 86 22 142/65 (90) 99 12/28/19 15:30 88 23 125/63 (83) 12/28/19 15:15 84 18 137/61 (86) 12/28/19 15:00 84 20 121/60 (80) 92 12/28/19 15:00 138/64 12/28/19 14:30 82 19 127/70 (89) 93 12/28/19 14:27 122/65 12/28/19 14:00 83 22 132/65 (87) 99 12/28/19 14:00 132/65 12/28/19 13:30 87 23 125/61 (82) 99 12/28/19 13:00 87 23 129/61 (83) 99 12/28/19 13:00 129/61 12/28/19 12:30 85 24 110/60 (77) 100 12/28/19 12:00 98.8 86 22 112/55 (74) 100 12/28/19 12:00 112/55 12/28/19 12:00 86 12/28/19 12:00 Venturi Mask 14.0 12/28/19 12:00 14.0 55 12/28/19 11:30 85 23 110/60 (77) 100 12/28/19 11:00 88 23 111/49 (69) 12/28/19 11:00 111/49 12/28/19 10:45 86 22 97/57 (70) 100 8/17/20 10:30 87 23 104/57 (73) 100 12/28/19 10:15 91 121/68 12/28/19 10:15 86 24 99/57 (71) 100 12/28/19 10:00 87 25 121/68 (85) 100 12/28/19 10:00 121/68 12/28/19 09:45 87 25 110/61 (77) 100 12/28/19 09:35 100 Venturi Mask 12.0 50 12/28/19 09:30 85 22 107/56 (73) 100 12/28/19 09:15 85 22 110/56 (74) 100 12/28/19 09:00 89 25 116/57 (76) 100 12/28/19 09:00 110/56 12/28/19 08:45 88 22 112/54 (73) 100 12/28/19 08:30 87 24 115/53 (73) 100 12/28/19 08:15 85 25 115/62 (79) 100 12/28/19 08:00 150/70 12/28/19 08:00 82 12/28/19 08:00 14.0 55 12/28/19 08:00 Venturi Mask 14.0 12/28/19 08:00 98.5 82 25 150/70 (96) 100 12/28/19 07:45 84 23 127/74 (91) 100 12/28/19 07:30 85 22 132/68 (89) 100 12/28/19 07:15 85 25 132/76 (94) 100 12/28/19 07:00 82 22 126/95 (105) 100 12/28/19 07:00 126/95 12/28/19 06:45 92 22 103/58 (73) 100 12/28/19 06:30 84 26 128/58 (81) 100 12/28/19 06:15 86 23 118/63 (81) 99 12/28/19 06:00 82 24 122/70 (87) 99 12/28/19 06:00 122/70 12/28/19 05:45 86 23 132/57 (82) 99 12/28/19 05:45 132/57 12/28/19 05:30 86 20 137/58 (84) 99 12/28/19 05:15 135/74 8/17/20 05:15 83 20 135/74 (94) 99 12/28/19 05:00 137/64 12/28/19 05:00 87 25 137/64 (88) 99 12/28/19 04:45 88 25 133/65 (87) 100 12/28/19 04:30 122/61 12/28/19 04:30 94 27 122/67 (85) 99 12/28/19 04:15 87 25 126/58 (80) 98 12/28/19 04:00 98.8 98 21 103/65 (78) 99 12/28/19 04:00 88 12/28/19 04:00 103/65 12/28/19 04:00 14.0 55 12/28/19 04:00 Venturi Mask 14.0 12/28/19 03:45 92 25 123/61 (81) 100 12/28/19 03:30 88 24 124/55 (78) 100 12/28/19 03:21 121/56 12/28/19 03:15 93 25 121/56 (77) 99 12/28/19 03:00 135/56 12/28/19 03:00 90 22 135/56 (82) 99 12/28/19 02:45 90 23 121/58 (79) 98 12/28/19 02:30 94 24 115/65 (82) 99 12/28/19 02:15 94 28 114/57 (76) 99 12/28/19 02:00 122/58 12/28/19 02:00 90 27 122/58 (79) 98 12/28/19 01:45 95 29 114/56 (75) 98 12/28/19 01:30 102 24 120/62 (81) 99 12/28/19 01:15 100 30 121/63 (82) 98 12/28/19 01:00 117/56 12/28/19 01:00 98 28 117/56 (76) 99 12/28/19 00:45 96 27 112/56 (74) 98 12/28/19 00:30 100 28 129/67 (87) 99 12/28/19 00:15 96 26 127/70 (89) 98 12/28/19 00:00 Venturi Mask 14.0 12/28/19 00:00 115/57 12/28/19 00:00 107 12/28/19 00:00 98.4 90 28 115/57 (76) 98 12/28/19 00:00 14.0 55 12/27/19 23:45 93 26 127/57 (80) 99 12/27/19 23:30 92 24 123/66 (85) 98 12/27/19 23:30 123/66 12/27/19 23:15 97 26 115/70 (85) 98 12/27/19 23:00 92 28 116/64 (81) 98 12/27/19 23:00 116/64 12/27/19 22:46 113/61 12/27/19 22:45 103 29 102/51 (68) 98 12/27/19 22:30 103 21 113/61 (78) 98 Intake and Output 12/27/19 12/28/19 19:00 07:00 Intake Total 2897.4800 ml 2891.63 ml Output Total 690 ml 2575 ml Balance 2207.4800 ml 316.63 ml Intake IV Total 2897.4800 ml 2891.63 ml Output Urine Total 690 ml 2575 ml # Voids 320 # Bowel Movements 3 2 Laboratory Tests 12/28/19 05:25: White Blood Count 16.1H, Red Blood Count 4.13L, Hemoglobin 12.6L, Hematocrit 38.1L, Mean Corpuscular Volume 92, Mean Corpuscular Hemoglobin 30.4, Mean Corpuscular Hemoglobin Concent 33.0, Red Cell Distribution Width 13.3, Platelet Count 163, Mean Platelet Volume 7.2, Neutrophils (%) (Auto) , Lymphocytes (%) ( Auto) , Monocytes (%) (Auto) , Eosinophils (%) (Auto) , Basophils (%) (Auto) , Differential Total Cells Counted 100, Neutrophils % (Manual) 93H, Lymphocytes % (Manual) 2L, Monocytes % (Manual) 5, Eosinophils % (Manual) 0, Basophils % ( Manual) 0, Band Neutrophils 0, Platelet Estimate Adequate, Platelet Morphology Normal, Red Blood Cell Morphology Normal, Sodium Level 135L, Potassium Level 3.5 , Chloride Level 99, Carbon Dioxide Level 21, Anion Gap 15, Blood Urea Nitrogen 120H, Creatinine 3.7H, Estimat Glomerular Filtration Rate 16.7, Glucose Level 437#H, Uric Acid 10.2H, Calcium Level 8.2L, Phosphorus Level 4.1, Magnesium Level 2.6H, Total Bilirubin 1.0, Aspartate Amino Transf (AST/SGOT) 27, Alanine Aminotransferase (ALT/SGPT) 31, Alkaline Phosphatase 89, C-Reactive Protein, Quantitative 12.9H, Pro-B-Type Natriuretic Peptide 6198H, Total Protein 7.1, Albumin 2.9L, Globulin 4.2, Albumin/Globulin Ratio 0.7L, Random Vancomycin Level 5.4 12/28/19 06:19: POC Whole Blood Glucose [Pending] 12/28/19 07:00: Urine Eosinophils None seen 12/28/19 07:44: Arterial Blood pH 7.392, Arterial Blood Partial Pressure CO2 33.1L, Arterial Blood Partial Pressure O2 108.1H, Arterial Blood HCO3 19.7L, Arterial Blood Oxygen Saturation 98.0, Arterial Blood Base Excess -4.4L, Vinay Test Positive 12/28/19 08:08: POC Whole Blood Glucose 360H 12/28/19 09:13: POC Whole Blood Glucose 286H 12/28/19 10:10: POC Whole Blood Glucose 225H 12/28/19 11:09: POC Whole Blood Glucose 128H 12/28/19 15:05: POC Whole Blood Glucose 142H 12/28/19 16:16: POC Whole Blood Glucose 155H 12/28/19 17:14: POC Whole Blood Glucose 166H 12/28/19 18:48: POC Whole Blood Glucose 145H 12/28/19 21:19: POC Whole Blood Glucose 131H 12/28/19 22:01: POC Whole Blood Glucose 154H Height (Feet): 5 Height (Inches): 6.00 Weight (Pounds): 160 Isaías Mendoza MD Dec 28, 2019 22:22
[2019-12-28] MEDS: Aztreonam Inj 0.5 GM in NS 55 ML IVPB SCH (22:27)
--- NOTE | 2019-12-28 23:00 | NUR ---
NURSE NOTES: Blood sugar 131mg/dl on 0.8u/hr insulin drip
[2019-12-29] VITALS (41 sets, daily range): BP systolic 101–155; BP diastolic 58–107
[2019-12-29] MEDS: Insulin Rate Change 1 Each MISC PRN ×4 (00:14→05:24)
--- NOTE | 2019-12-29 03:00 | NUR ---
NURSE NOTES: Complete bed bath with bed changed was done.
[2019-12-29] MEDS ORDERED: Insulin Reg 100 units Premix 100 ML IVPB SCH (05:00)
--- NOTE | 2019-12-29 05:00 | NUR ---
NURSE NOTES: Changed to algorithm 2 , due to unable to reached target aware alfredo Crabtree . blood sugar 116 algorithm2
[2019-12-29] MEDS: Aztreonam Inj 0.5 GM in NS 55 ML IVPB SCH (05:50)
[2019-12-29 06:13] LABS: HEMATOCRIT 33.7 % (42.0-52.0); HEMOGLOBIN 11.1 G/DL (14.2-18.0); MEAN CORPUSCULAR VOLUME 92 FL (80-99); PLATELET COUNT 118 K/UL (150-450); RED BLOOD COUNT 3.64 M/UL (4.70-6.10); RED CELL DISTRIBUTION WIDTH 13.3 % (11.6-14.8); WHITE BLOOD COUNT 9.4 K/UL (4.8-10.8)
--- NOTE | 2019-12-29 06:24 | General Progress Note ---
Assessment/Plan Problem List: (1) Sepsis with acute hypoxic respiratory failure ICD Codes: A41.9 - Sepsis, unspecified organism; R65.20 - Severe sepsis without septic shock; J96.01 - Acute respiratory failure with hypoxia SNOMED: 326656262, 74092175, 501552919 (2) NSTEMI (non-ST elevated myocardial infarction) ICD Codes: I21.4 - Non-ST elevation (NSTEMI) myocardial infarction SNOMED: 04014426, 666917486, 733431828 (3) HLD (hyperlipidemia) ICD Codes: E78.5 - Hyperlipidemia, unspecified SNOMED: 98927726, 590047290, 337766302 (4) HTN (hypertension) ICD Codes: I10 - Essential (primary) hypertension SNOMED: 83864941, 442533095, 916681461 (5) Diabetes ICD Codes: E11.9 - Type 2 diabetes mellitus without complications SNOMED: 53447439, 385757076, 785243794 (6) Lobar pneumonia ICD Codes: J18.1 - Lobar pneumonia, unspecified organism SNOMED: 097921333, 395721915, 803767009 (7) Septic shock ICD Codes: A41.9 - Sepsis, unspecified organism; R65.21 - Severe sepsis with septic shock SNOMED: 85678614, 872214537, 336500612 (8) Abnormal TSH ICD Codes: R79.89 - Other specified abnormal findings of blood chemistry SNOMED: 298378470 Assessment/Plan: DC insulin drip start Novolog high dose every 4 hours repeat TSH, free T4, free T3 once off pressors no need for thyroid medications for now Subjective ROS Limited/Unobtainable: Yes Allergies: Coded Allergies: PENICILLINS (Verified Allergy, Unknown, 12/27/19) Subjective events noted in ICU on insulin drip alg 1 glucose values controlled on soft restraints Item Value Date Time Bedside Blood Glucose 116 mg/dl 12/29/19 0542 Bedside Blood Glucose 145 mg/dl H 12/29/19 0200 Bedside Blood Glucose 151 mg/dl H 12/28/19 2205 Bedside Blood Glucose 165 mg/dl H 12/28/19 1800 Bedside Blood Glucose 105 mg/dl 12/28/19 1400 Bedside Blood Glucose 225 mg/dl H 12/28/19 1014 Bedside Blood Glucose 444 mg/dl H 12/28/19 0600 Objective Last 24 Hour Vital Signs Date Time Temp Pulse Resp B/P (MAP) Pulse Ox O2 Delivery O2 Flow Rate FiO2 12/29/19 03:00 89 19 132/70 (90) 100 12/29/19 02:30 83 16 137/64 (88) 100 12/29/19 02:00 83 19 136/77 (96) 100 12/29/19 01:30 85 18 138/72 (94) 100 12/29/19 01:00 95 20 136/78 (97) 100 12/29/19 00:30 83 18 139/77 (97) 100 12/29/19 00:00 Venturi Mask 14.0 12/29/19 00:00 83 12/29/19 00:00 99.0 82 17 127/69 (88) 100 12/29/19 00:00 14.0 55 12/28/19 23:30 81 19 134/75 (94) 100 12/28/19 23:00 93 20 145/75 (98) 100 12/28/19 22:30 94 20 149/81 (103) 100 12/28/19 22:00 90 23 144/77 (99) 100 12/28/19 21:30 87 22 137/64 (88) 100 12/28/19 21:00 83 20 125/68 (87) 100 12/28/19 20:30 83 16 130/63 (85) 100 12/28/19 20:00 14.0 55 12/28/19 20:00 84 12/28/19 20:00 98.2 82 22 141/64 (89) 100 12/28/19 20:00 Venturi Mask 14.0 12/28/19 19:45 84 23 137/69 (91) 100 12/28/19 19:42 100 Venturi Mask 12.0 50 12/28/19 19:30 84 22 138/74 (95) 100 12/28/19 19:00 85 21 136/72 (93) 100 12/28/19 18:30 85 19 123/64 (83) 100 12/28/19 18:00 83 20 139/66 (90) 100 12/28/19 17:30 85 19 126/72 (90) 100 12/28/19 17:00 79 18 129/61 (83) 100 12/28/19 16:30 80 20 133/65 (87) 100 12/28/19 16:15 96 22 140/116 (124) 99 12/28/19 16:00 14.0 55 12/28/19 16:00 Venturi Mask 14.0 12/28/19 16:00 98.8 85 19 131/64 (86) 99 12/28/19 16:00 92 12/28/19 15:45 86 22 142/65 (90) 99 12/28/19 15:30 88 23 125/63 (83) 12/28/19 15:15 84 18 137/61 (86) 12/28/19 15:00 84 20 121/60 (80) 92 12/28/19 15:00 138/64 12/28/19 14:30 82 19 127/70 (89) 93 12/28/19 14:27 122/65 12/28/19 14:00 83 22 132/65 (87) 99 12/28/19 14:00 132/65 12/28/19 13:30 87 23 125/61 (82) 99 12/28/19 13:00 87 23 129/61 (83) 99 12/28/19 13:00 129/61 12/28/19 12:30 85 24 110/60 (77) 100 12/28/19 12:00 98.8 86 22 112/55 (74) 100 12/28/19 12:00 112/55 12/28/19 12:00 86 12/28/19 12:00 Venturi Mask 14.0 12/28/19 12:00 14.0 55 12/28/19 11:30 85 23 110/60 (77) 100 12/28/19 11:00 88 23 111/49 (69) 12/28/19 11:00 111/49 12/28/19 10:45 86 22 97/57 (70) 100 12/28/19 10:30 87 23 104/57 (73) 100 12/28/19 10:15 91 121/68 12/28/19 10:15 86 24 99/57 (71) 100 12/28/19 10:00 87 25 121/68 (85) 100 12/28/19 10:00 121/68 12/28/19 09:45 87 25 110/61 (77) 100 12/28/19 09:35 100 Venturi Mask 12.0 50 12/28/19 09:30 85 22 107/56 (73) 100 12/28/19 09:15 85 22 110/56 (74) 100 12/28/19 09:00 89 25 116/57 (76) 100 12/28/19 09:00 110/56 12/28/19 08:45 88 22 112/54 (73) 100 12/28/19 08:30 87 24 115/53 (73) 100 12/28/19 08:15 85 25 115/62 (79) 100 12/28/19 08:00 150/70 12/28/19 08:00 82 12/28/19 08:00 14.0 55 12/28/19 08:00 Venturi Mask 14.0 12/28/19 08:00 98.5 82 25 150/70 (96) 100 12/28/19 07:45 84 23 127/74 (91) 100 12/28/19 07:30 85 22 132/68 (89) 100 12/28/19 07:15 85 25 132/76 (94) 100 12/28/19 07:00 82 22 126/95 (105) 100 12/28/19 07:00 126/95 12/28/19 06:45 92 22 103/58 (73) 100 12/28/19 06:30 84 26 128/58 (81) 100 Intake and Output 12/28/19 12/29/19 19:00 07:00 Intake Total 2184.74 ml 812.2 ml Output Total 1980 ml 880 ml Balance 204.74 ml -67.8 ml Intake IV Total 2184.74 ml 812.2 ml Output Urine Total 1980 ml 880 ml # Bowel Movements 2 2 Laboratory Tests 12/28/19 07:00: Urine Eosinophils None seen 12/28/19 07:44: Arterial Blood pH 7.392, Arterial Blood Partial Pressure CO2 33.1L, Arterial Blood Partial Pressure O2 108.1H, Arterial Blood HCO3 19.7L, Arterial Blood Oxygen Saturation 98.0, Arterial Blood Base Excess -4.4L, Vinay Test Positive 12/28/19 08:08: POC Whole Blood Glucose 360H 12/28/19 09:13: POC Whole Blood Glucose 286H 12/28/19 10:10: POC Whole Blood Glucose 225H 12/28/19 11:09: POC Whole Blood Glucose 128H 12/28/19 15:05: POC Whole Blood Glucose 142H 12/28/19 16:16: POC Whole Blood Glucose 155H 12/28/19 17:14: POC Whole Blood Glucose 166H 12/28/19 18:48: POC Whole Blood Glucose 145H 12/28/19 21:19: POC Whole Blood Glucose 131H 12/28/19 22:01: POC Whole Blood Glucose 154H 12/29/19 02:19: POC Whole Blood Glucose 145H 12/29/19 03:04: POC Whole Blood Glucose 131H 12/29/19 04:23: POC Whole Blood Glucose 129H 12/29/19 05:10: White Blood Count [Pending], Red Blood Count [Pending], Hemoglobin [Pending], Hematocrit [Pending], Mean Corpuscular Volume [Pending], Mean Corpuscular Hemoglobin [Pending], Mean Corpuscular Hemoglobin Concent [Pending], Red Cell Distribution Width [Pending], Platelet Count [Pending], Mean Platelet Volume [ Pending], Neutrophils (%) (Auto) [Pending], Lymphocytes (%) (Auto) [Pending], Monocytes (%) (Auto) [Pending], Eosinophils (%) (Auto) [Pending], Basophils (%) (Auto) [Pending], Sodium Level [Pending], Potassium Level [Pending], Chloride Level [Pending], Carbon Dioxide Level [Pending], Blood Urea Nitrogen [Pending], Creatinine [Pending], Estimat Glomerular Filtration Rate [Pending], Glucose Level [Pending], Uric Acid [Pending], Calcium Level [Pending], Phosphorus Level [Pending], Magnesium Level [Pending], Total Bilirubin [Pending], Aspartate Amino Transf (AST/SGOT) [Pending], Alanine Aminotransferase (ALT/SGPT) [Pending] , Alkaline Phosphatase [Pending], C-Reactive Protein, Quantitative [Pending], Pro-B-Type Natriuretic Peptide [Pending], Total Protein [Pending], Albumin [ Pending], Globulin [Pending] Height (Feet): 5 Height (Inches): 6.00 Weight (Pounds): 253 General Appearance: no apparent distress Neck: normal alignment Cardiovascular: normal rate Respiratory/Chest: decreased breath sounds Abdomen: normal bowel sounds Objective Current Medications Medications (Trade) Dose Ordered Sig/Susana Route PRN Reason Start Time Stop Time Status Last Admin Dose Admin Acetaminophen (Tylenol) 500 mg Q4H PRN ORAL Mild Pain (Pain Scale 1-3) 12/27/19 07:00 01/26/20 06:59 Apixaban (Eliquis) 2.5 mg BID ORAL 12/27/19 10:00 03/26/20 09:59 12/28/19 17:10 Aztreonam 0.5 gm/ Sodium Chloride 55 ml @ 110 mls/hr Q8HR IVPB 12/28/19 22:00 01/04/20 21:59 12/29/19 05:50 Chlorhexidine Gluconate (Ally-Hex 2%) 1 applic DAILY@2000 TOPIC 12/27/19 20:00 03/26/20 19:59 12/28/19 20:24 Dextrose (Dextrose 50%) 25 ml Q30M PRN IV HYPOGLYCEMIA 12/28/19 08:00 03/27/20 07:59 Dextrose (Dextrose 50%) 50 ml Q30M PRN IV HYPOGLYCEMIA 12/28/19 08:00 03/27/20 07:59 Insulin Human (Reg)/Sodium Chloride 100 ml @ 0 mls/hr Q24H IVPB 12/29/19 05:00 03/28/20 04:59 12/29/19 05:42 Insulin Human Regular (NovoLIN R) 5 units PRN PRN IV BS 200-299 12/28/19 08:00 03/27/20 07:59 12/28/19 10:14 Insulin Human Regular (NovoLIN R) 10 units PRN PRN IV BS=>300 12/28/19 08:00 03/27/20 07:59 12/28/19 08:19 Levofloxacin 100 ml @ 100 mls/hr Q48H IVPB 12/27/19 12:30 01/03/20 12:29 12/27/19 12:17 Miscellaneous Medication (Insulin Rate Change) 1 ea PRN PRN MISC Sliding Scale 12/28/19 08:00 03/27/20 07:59 12/29/19 05:24 Norepinephrine Bitartrate 250 ml @ 0 mls/hr Q24H IV 12/28/19 15:00 03/27/20 14:59 12/28/19 15:00 Pantoprazole (Protonix) 40 mg Q12HR IVP 12/27/19 21:00 01/27/20 08:59 12/28/19 21:08 Phenylephrine HCl 50 mg/Sodium Chloride 250 ml @ 0 mls/hr Q24H IV 12/28/19 14:30 01/27/20 14:29 Sodium Chloride 1,000 ml @ 125 mls/hr Q8H IV 12/27/19 15:50 01/26/20 15:49 12/28/19 22:28 Vancomycin HCl ([facility] pharmacy to dose) 1 ea DAILY PRN MISC Per rx protocol 12/27/19 10:30 01/26/20 10:29 Kaiser Yen MD Dec 29, 2019 06:24
[2019-12-29 06:41] LABS: ALANINE AMINOTRANSFERASE 29 U/L (12-78); ALBUMIN 3.6 G/DL (3.4-5.0); ALBUMIN/GLOBULIN RATIO 1.1 (1.0-2.7); ALKALINE PHOSPHATASE 64 U/L (46-116); ANION GAP 11 mmol/L (5-15); ASPARTATE AMINO TRANSFERASE 27 U/L (15-37); BILIRUBIN,TOTAL 0.9 MG/DL (0.2-1.0); BLOOD UREA NITROGEN 74 mg/dL (7-18); CALCIUM 9.1 MG/DL (8.5-10.1); CARBON DIOXIDE 25 MMOL/L (21-32); CHLORIDE 110 MMOL/L (98-107); CREATININE 1.6 MG/DL (0.55-1.30); PHOSPHORUS 2.4 MG/DL (2.5-4.9); POTASSIUM 3.5 MMOL/L (3.5-5.1); SODIUM 146 MMOL/L (136-145)
--- NOTE | 2019-12-29 07:17 | NUR ---
NURSE HAND-OFF REPORT: Latest Vital Signs: Temperature 98.8 , Pulse 89 , B/P 129 /68 , Respiratory Rate 20 , O2 SAT 100 , Venturi Mask, O2 Flow Rate 14.0 . Vital Sign Comment: EKG Rhythm: Atrial Fibrillation Rhythm change?: N Notified?:n Response: Latest Cook Fall Score: 50 Fall Risk: High Risk Safety Measures: Call light Within Reach, Bed Alarm Zone 2, Side Rails Side Rails x2, Bed position Low and Locked. Fall Precautions: Yellow Socks Yellow Gown Door Sign Patient Fall Education Report given to Jailene VASQUEZ.
--- NOTE | 2019-12-29 07:30 | NUR ---
NURSE NOTES: Received report from CHRISTINA Bonilla. Pt is resting on the bed and lethargic, responding to voice and physical stimuli. Pt is mostly Georgian speaking. On Venturi mask; FiO2 50%, SaO2 97-100% noted. AFib on color television console monitor. Pt has NGT, currently NPO. Pt has Parker cath, patent and draining to urometer. Pt has Rt. IJ TLC. Dressing clean, dry, and intact. N/S running @ 125cc/hr. Pt has bilateral soft wrist restraints for safety, surrounding skin and circulation intact. Bed locked and in lowest position. Will continue to monitor any change in condition.
--- NOTE | 2019-12-29 08:54 | Infectious Diseases Prog Note ---
Assessment/Plan Assessment/Plan IMPRESSION: 1. Severe sepsis with septic shock improving 2. Pneumonia. 3. Pyuria, UTI. 4. Acute renal failure. 5. Hypoxemic respiratory failure. 6. Diabetes with hyperglycemia 7. Hypertension. 8. Acidosis. 9. Obesity. 9. Bacteremia 10. DVT of left leg 11. MRSA carrier RECOMMENDATION: Continue vancomycin and Levaquin& Azactam will follow up the cultures Subjective ROS Limited/Unobtainable: Yes Constitutional: Denies: fever Cardiovascular: Reports: other - off of Levophed Neurologic: Reports: confusion, other - on restraint Endocrine: Reports: other - off of insulin drip Allergies: Coded Allergies: PENICILLINS (Verified Allergy, Unknown, 12/27/19) Objective Last 24 Hour Vital Signs Date Time Temp Pulse Resp B/P (MAP) Pulse Ox O2 Delivery O2 Flow Rate FiO2 12/29/19 08:00 Venturi Mask 12.0 12/29/19 08:00 99.0 88 18 152/107 (122) 100 12/29/19 08:00 12.0 50 12/29/19 07:30 85 19 138/76 (96) 100 12/29/19 07:00 89 20 129/68 (88) 100 12/29/19 06:30 85 20 135/58 (83) 100 12/29/19 06:00 100 20 120/59 (79) 100 12/29/19 05:30 87 16 148/79 (102) 100 12/29/19 05:00 90 18 125/68 (87) 100 12/29/19 04:30 87 18 141/73 (95) 100 12/29/19 04:00 75 12/29/19 04:00 Venturi Mask 14.0 12/29/19 04:00 98.8 88 19 131/72 (91) 100 12/29/19 04:00 12.0 50 12/29/19 03:30 88 19 143/67 (92) 100 12/29/19 03:00 89 19 132/70 (90) 100 12/29/19 02:30 83 16 137/64 (88) 100 12/29/19 02:00 83 19 136/77 (96) 100 12/29/19 01:30 85 18 138/72 (94) 100 12/29/19 01:00 95 20 136/78 (97) 100 12/29/19 00:30 83 18 139/77 (97) 100 12/29/19 00:00 Venturi Mask 14.0 12/29/19 00:00 83 12/29/19 00:00 99.0 82 17 127/69 (88) 100 12/29/19 00:00 14.0 55 12/28/19 23:30 81 19 134/75 (94) 100 12/28/19 23:00 93 20 145/75 (98) 100 12/28/19 22:30 94 20 149/81 (103) 100 12/28/19 22:00 90 23 144/77 (99) 100 12/28/19 21:30 87 22 137/64 (88) 100 12/28/19 21:00 83 20 125/68 (87) 100 12/28/19 20:30 83 16 130/63 (85) 100 12/28/19 20:00 14.0 55 12/28/19 20:00 84 12/28/19 20:00 98.2 82 22 141/64 (89) 100 12/28/19 20:00 Venturi Mask 14.0 12/28/19 19:45 84 23 137/69 (91) 100 12/28/19 19:42 100 Venturi Mask 12.0 50 12/28/19 19:30 84 22 138/74 (95) 100 12/28/19 19:00 85 21 136/72 (93) 100 12/28/19 18:30 85 19 123/64 (83) 100 12/28/19 18:00 83 20 139/66 (90) 100 12/28/19 17:30 85 19 126/72 (90) 100 12/28/19 17:00 79 18 129/61 (83) 100 12/28/19 16:30 80 20 133/65 (87) 100 12/28/19 16:15 96 22 140/116 (124) 99 12/28/19 16:00 14.0 55 12/28/19 16:00 Venturi Mask 14.0 12/28/19 16:00 98.8 85 19 131/64 (86) 99 12/28/19 16:00 92 12/28/19 15:45 86 22 142/65 (90) 99 12/28/19 15:30 88 23 125/63 (83) 12/28/19 15:15 84 18 137/61 (86) 12/28/19 15:00 84 20 121/60 (80) 92 12/28/19 15:00 138/64 12/28/19 14:30 82 19 127/70 (89) 93 12/28/19 14:27 122/65 12/28/19 14:00 83 22 132/65 (87) 99 12/28/19 14:00 132/65 12/28/19 13:30 87 23 125/61 (82) 99 12/28/19 13:00 87 23 129/61 (83) 99 12/28/19 13:00 129/61 12/28/19 12:30 85 24 110/60 (77) 100 12/28/19 12:00 98.8 86 22 112/55 (74) 100 12/28/19 12:00 112/55 12/28/19 12:00 86 12/28/19 12:00 Venturi Mask 14.0 12/28/19 12:00 14.0 55 12/28/19 11:30 85 23 110/60 (77) 100 12/28/19 11:00 88 23 111/49 (69) 12/28/19 11:00 111/49 12/28/19 10:45 86 22 97/57 (70) 100 12/28/19 10:30 87 23 104/57 (73) 100 12/28/19 10:15 91 121/68 12/28/19 10:15 86 24 99/57 (71) 100 12/28/19 10:00 87 25 121/68 (85) 100 12/28/19 10:00 121/68 12/28/19 09:45 87 25 110/61 (77) 100 12/28/19 09:35 100 Venturi Mask 12.0 50 12/28/19 09:30 85 22 107/56 (73) 100 12/28/19 09:15 85 22 110/56 (74) 100 12/28/19 09:00 89 25 116/57 (76) 100 12/28/19 09:00 110/56 Height (Feet): 5 Height (Inches): 6.00 Weight (Pounds): 253 HEENT: mucous membranes moist Respiratory/Chest: lungs clear, other - oxygen by mask Cardiovascular: normal rate, other - RIJ central line Abdomen: soft, non tender Extremities: no edema Skin: other - pigmentation of left singh Neurologic/Psychiatric: alert, responsive Microbiology Date/Time Source Procedure Growth Status 12/27/19 03:50 Blood Blood Culture - Preliminary Gram Positive Cocci Resulted 12/27/19 03:30 Blood Blood Culture - Preliminary NO GROWTH AFTER 24 HOURS Resulted 12/27/19 09:00 Nasal Nares MRSA Culture - Final Staphylococcus Aureus - Mrsa Complete 12/27/19 04:45 Nasopharynx SARS-CoV-2 RdRp Gene Assay - Final Complete 12/27/19 05:30 Indwelling Cath Urine Culture - Preliminary Gram Negative Bacillus 1 Resulted Laboratory Tests Test 12/28/19 09:13 12/28/19 10:10 12/28/19 11:09 12/28/19 15:05 POC Whole Blood Glucose 286 MG/DL (74-106) H 225 MG/DL (74-106) H 128 MG/DL (74-106) H 142 MG/DL (74-106) H Test 12/28/19 16:16 12/28/19 17:14 12/28/19 18:48 12/28/19 21:19 POC Whole Blood Glucose 155 MG/DL (74-106) H 166 MG/DL (74-106) H 145 MG/DL (74-106) H 131 MG/DL (74-106) H Test 12/28/19 22:01 12/29/19 02:19 12/29/19 03:04 12/29/19 04:23 POC Whole Blood Glucose 154 MG/DL (74-106) H 145 MG/DL (74-106) H 131 MG/DL (74-106) H 129 MG/DL (74-106) H Test 12/29/19 05:10 12/29/19 06:28 12/29/19 06:57 White Blood Count 9.4 K/UL (4.8-10.8) Red Blood Count 3.64 M/UL (4.70-6.10) L Hemoglobin 11.1 G/DL (14.2-18.0) L Hematocrit 33.7 % (42.0-52.0) L Mean Corpuscular Volume 92 FL (80-99) Mean Corpuscular Hemoglobin 30.4 PG (27.0-31.0) Mean Corpuscular Hemoglobin Concent 32.9 G/DL (32.0-36.0) Red Cell Distribution Width 13.3 % (11.6-14.8) Platelet Count 118 K/UL (150-450) L Mean Platelet Volume 7.1 FL (6.5-10.1) Neutrophils (%) (Auto) % (45.0-75.0) Lymphocytes (%) (Auto) % (20.0-45.0) Monocytes (%) (Auto) % (1.0-10.0) Eosinophils (%) (Auto) % (0.0-3.0) Basophils (%) (Auto) % (0.0-2.0) Neutrophils % (Manual) Pending Lymphocytes % (Manual) Pending Platelet Estimate Pending Platelet Morphology Pending Sodium Level 146 MMOL/L (136-145) #H Potassium Level 3.5 MMOL/L (3.5-5.1) Chloride Level 110 MMOL/L (98-107) H Carbon Dioxide Level 25 MMOL/L (21-32) Anion Gap 11 mmol/L (5-15) Blood Urea Nitrogen 74 mg/dL (7-18) H Creatinine 1.6 MG/DL (0.55-1.30) #H Estimat Glomerular Filtration Rate 43.9 mL/min (>60) Glucose Level 122 MG/DL (74-106) #H Uric Acid 7.6 MG/DL (2.6-7.2) H Calcium Level 9.1 MG/DL (8.5-10.1) Phosphorus Level 2.4 MG/DL (2.5-4.9) L Magnesium Level 2.4 MG/DL (1.8-2.4) Total Bilirubin 0.9 MG/DL (0.2-1.0) Aspartate Amino Transf (AST/SGOT) 27 U/L (15-37) Alanine Aminotransferase (ALT/SGPT) 29 U/L (12-78) Alkaline Phosphatase 64 U/L (46-116) C-Reactive Protein, Quantitative 6.3 mg/dL (0.00-0.90) H Pro-B-Type Natriuretic Peptide 7892 pg/mL (0-125) H Total Protein 6.9 G/DL (6.4-8.2) Albumin 3.6 G/DL (3.4-5.0) Globulin 3.3 g/dL Albumin/Globulin Ratio 1.1 (1.0-2.7) POC Whole Blood Glucose 127 MG/DL (74-106) H 111 MG/DL (74-106) H Current Medications Medications (Trade) Dose Ordered Sig/Susana Route PRN Reason Start Time Stop Time Status Last Admin Dose Admin Acetaminophen (Tylenol) 500 mg Q4H PRN ORAL Mild Pain (Pain Scale 1-3) 12/27/19 07:00 01/26/20 06:59 Apixaban (Eliquis) 2.5 mg BID ORAL 12/27/19 10:00 03/26/20 09:59 12/28/19 17:10 Aztreonam 0.5 gm/ Sodium Chloride 55 ml @ 110 mls/hr Q8HR IVPB 12/28/19 22:00 01/04/20 21:59 12/29/19 05:50 Chlorhexidine Gluconate (Ally-Hex 2%) 1 applic DAILY@2000 TOPIC 12/27/19 20:00 03/26/20 19:59 12/28/19 20:24 Dextrose (Dextrose 50%) 25 ml Q30M PRN IV Hypoglycemia 12/29/19 06:30 03/28/20 06:29 Dextrose (Dextrose 50%) 50 ml Q30M PRN IV Hypoglycemia 12/29/19 06:30 03/28/20 06:29 Insulin Aspart (NovoLOG) EVERY 4 HOURS SUBQ 12/29/19 09:00 03/28/20 08:59 Levofloxacin 100 ml @ 100 mls/hr Q48H IVPB 12/27/19 12:30 01/03/20 12:29 12/27/19 12:17 Norepinephrine Bitartrate 250 ml @ 0 mls/hr Q24H IV 12/28/19 15:00 03/27/20 14:59 12/28/19 15:00 Pantoprazole (Protonix) 40 mg Q12HR IVP 12/27/19 21:00 01/27/20 08:59 12/28/19 21:08 Phenylephrine HCl 50 mg/Sodium Chloride 250 ml @ 0 mls/hr Q24H IV 12/28/19 14:30 01/27/20 14:29 Sodium Chloride 1,000 ml @ 125 mls/hr Q8H IV 12/27/19 15:50 01/26/20 15:49 12/29/19 06:47 Vancomycin HCl (Vanco pharmacy to dose) 1 ea DAILY PRN MISC Per rx protocol 12/27/19 10:30 01/26/20 10:29 Claudy Acuna MD Dec 29, 2019 08:54
[2019-12-29] MEDS: NovoLOG Insulin Flexpen SUBQ SCH ×4 (09:00→21:52)
--- NOTE | 2019-12-29 09:10 | NUR ---
NURSE NOTES: BS 131. No insulin given at this time, as per sliding scale.
[2019-12-29] MEDS: Pantoprazole Inj IVP SCH ×2 (09:23→21:08)
[2019-12-29] MEDS: Eliquis 2.5mg tablet ORAL SCH ×2 (09:24→17:37)
--- NOTE | 2019-12-29 10:30 | NUR ---
NURSE NOTES: Dr Ash at bedside assessing pt. Updated him on pt's current condition. No new orders given at this time.
--- NOTE | 2019-12-29 10:55 | Pulmonology Progress Note ---
Subjective ROS Limited/Unobtainable: Yes Interval Events: Seen in ICU Constitutional: Denies: fever HEENT: Repors: no symptoms Respiratory: Reports: no symptoms Cardiovascular: Reports: no symptoms Gastrointestinal/Abdominal: Reports: no symptoms Genitourinary: Reports: no symptoms Allergies: Coded Allergies: PENICILLINS (Verified Allergy, Unknown, 12/27/19) Objective Last 24 Hour Vital Signs Date Time Temp Pulse Resp B/P (MAP) Pulse Ox O2 Delivery O2 Flow Rate FiO2 12/29/19 10:30 88 19 136/76 (96) 100 12/29/19 10:00 86 18 142/75 (97) 100 12/29/19 09:00 92 18 139/73 (95) 100 12/29/19 08:30 94 18 136/75 (95) 100 12/29/19 08:16 100 Venturi Mask 12.0 50 12/29/19 08:00 Venturi Mask 12.0 12/29/19 08:00 99.0 88 18 152/107 (122) 100 12/29/19 08:00 12.0 50 12/29/19 07:30 85 19 138/76 (96) 100 12/29/19 07:00 89 20 129/68 (88) 100 12/29/19 06:30 85 20 135/58 (83) 100 12/29/19 06:00 100 20 120/59 (79) 100 12/29/19 05:30 87 16 148/79 (102) 100 12/29/19 05:00 90 18 125/68 (87) 100 12/29/19 04:30 87 18 141/73 (95) 100 12/29/19 04:00 75 12/29/19 04:00 Venturi Mask 14.0 12/29/19 04:00 98.8 88 19 131/72 (91) 100 12/29/19 04:00 12.0 50 12/29/19 03:30 88 19 143/67 (92) 100 12/29/19 03:00 89 19 132/70 (90) 100 12/29/19 02:30 83 16 137/64 (88) 100 12/29/19 02:00 83 19 136/77 (96) 100 12/29/19 01:30 85 18 138/72 (94) 100 12/29/19 01:00 95 20 136/78 (97) 100 12/29/19 00:30 83 18 139/77 (97) 100 12/29/19 00:00 Venturi Mask 14.0 12/29/19 00:00 83 12/29/19 00:00 99.0 82 17 127/69 (88) 100 12/29/19 00:00 14.0 55 12/28/19 23:30 81 19 134/75 (94) 100 12/28/19 23:00 93 20 145/75 (98) 100 12/28/19 22:30 94 20 149/81 (103) 100 12/28/19 22:00 90 23 144/77 (99) 100 12/28/19 21:30 87 22 137/64 (88) 100 12/28/19 21:00 83 20 125/68 (87) 100 12/28/19 20:30 83 16 130/63 (85) 100 12/28/19 20:00 14.0 55 12/28/19 20:00 84 12/28/19 20:00 98.2 82 22 141/64 (89) 100 12/28/19 20:00 Venturi Mask 14.0 12/28/19 19:45 84 23 137/69 (91) 100 12/28/19 19:42 100 Venturi Mask 12.0 50 12/28/19 19:30 84 22 138/74 (95) 100 12/28/19 19:00 85 21 136/72 (93) 100 12/28/19 18:30 85 19 123/64 (83) 100 12/28/19 18:00 83 20 139/66 (90) 100 12/28/19 17:30 85 19 126/72 (90) 100 12/28/19 17:00 79 18 129/61 (83) 100 12/28/19 16:30 80 20 133/65 (87) 100 12/28/19 16:15 96 22 140/116 (124) 99 12/28/19 16:00 14.0 55 12/28/19 16:00 Venturi Mask 14.0 12/28/19 16:00 98.8 85 19 131/64 (86) 99 12/28/19 16:00 92 12/28/19 15:45 86 22 142/65 (90) 99 12/28/19 15:30 88 23 125/63 (83) 12/28/19 15:15 84 18 137/61 (86) 12/28/19 15:00 84 20 121/60 (80) 92 12/28/19 15:00 138/64 12/28/19 14:30 82 19 127/70 (89) 93 12/28/19 14:27 122/65 12/28/19 14:00 83 22 132/65 (87) 99 12/28/19 14:00 132/65 12/28/19 13:30 87 23 125/61 (82) 99 12/28/19 13:00 87 23 129/61 (83) 99 12/28/19 13:00 129/61 12/28/19 12:30 85 24 110/60 (77) 100 12/28/19 12:00 98.8 86 22 112/55 (74) 100 12/28/19 12:00 112/55 12/28/19 12:00 86 12/28/19 12:00 Venturi Mask 14.0 12/28/19 12:00 14.0 55 12/28/19 11:30 85 23 110/60 (77) 100 12/28/19 11:00 88 23 111/49 (69) 12/28/19 11:00 111/49 Intake and Output 12/28/19 12/29/19 19:00 07:00 Intake Total 2184.74 ml 1667.4 ml Output Total 1980 ml 1290 ml Balance 204.74 ml 377.4 ml Intake IV Total 2184.74 ml 1667.4 ml Output Urine Total 1980 ml 1290 ml # Bowel Movements 2 3 General Appearance: no acute distress HEENT: normocephalic Respiratory: chest wall non-tender, decreased breath sounds Cardiovascular: normal peripheral pulses Abdomen: normal bowel sounds Microbiology Date/Time Source Procedure Growth Status 12/27/19 03:50 Blood Blood Culture - Preliminary Gram Positive Cocci Resulted 12/27/19 03:30 Blood Blood Culture - Preliminary Resulted 12/27/19 09:00 Nasal Nares MRSA Culture - Final Staphylococcus Aureus - Mrsa Complete 12/27/19 04:45 Nasopharynx SARS-CoV-2 RdRp Gene Assay - Final Complete 12/27/19 05:30 Indwelling Cath Urine Culture - Preliminary Gram Negative Bacillus 1 Resulted Laboratory Tests 12/28/19 11:09: POC Whole Blood Glucose 128H 12/28/19 15:05: POC Whole Blood Glucose 142H 12/28/19 16:16: POC Whole Blood Glucose 155H 12/28/19 17:14: POC Whole Blood Glucose 166H 12/28/19 18:48: POC Whole Blood Glucose 145H 12/28/19 21:19: POC Whole Blood Glucose 131H 12/28/19 22:01: POC Whole Blood Glucose 154H 12/29/19 02:19: POC Whole Blood Glucose 145H 12/29/19 03:04: POC Whole Blood Glucose 131H 12/29/19 04:23: POC Whole Blood Glucose 129H 12/29/19 05:10: White Blood Count 9.4, Red Blood Count 3.64L, Hemoglobin 11.1L, Hematocrit 33.7L , Mean Corpuscular Volume 92, Mean Corpuscular Hemoglobin 30.4, Mean Corpuscular Hemoglobin Concent 32.9, Red Cell Distribution Width 13.3, Platelet Count 118L, Mean Platelet Volume 7.1, Neutrophils (%) (Auto) , Lymphocytes (%) ( Auto) , Monocytes (%) (Auto) , Eosinophils (%) (Auto) , Basophils (%) (Auto) , Differential Total Cells Counted 100, Neutrophils % (Manual) 87H, Lymphocytes % (Manual) 4L, Monocytes % (Manual) 9, Eosinophils % (Manual) 0, Basophils % ( Manual) 0, Band Neutrophils 0, Platelet Estimate DecreasedL, Platelet Morphology Normal, Red Blood Cell Morphology Normal, Sodium Level 146#H, Potassium Level 3.5, Chloride Level 110H, Carbon Dioxide Level 25, Anion Gap 11 , Blood Urea Nitrogen 74H, Creatinine 1.6#H, Estimat Glomerular Filtration Rate 43.9, Glucose Level 122#H, Uric Acid 7.6H, Calcium Level 9.1, Phosphorus Level 2.4L, Magnesium Level 2.4, Total Bilirubin 0.9, Aspartate Amino Transf (AST/SGOT ) 27, Alanine Aminotransferase (ALT/SGPT) 29, Alkaline Phosphatase 64, C- Reactive Protein, Quantitative 6.3H, Pro-B-Type Natriuretic Peptide 7892H, Total Protein 6.9, Albumin 3.6, Globulin 3.3, Albumin/Globulin Ratio 1.1 12/29/19 06:28: POC Whole Blood Glucose 127H 12/29/19 06:57: POC Whole Blood Glucose 111H 12/29/19 09:20: POC Whole Blood Glucose 131H Current Medications Medications (Trade) Dose Ordered Sig/Susana Route PRN Reason Start Time Stop Time Status Last Admin Dose Admin Acetaminophen (Tylenol) 500 mg Q4H PRN ORAL Mild Pain (Pain Scale 1-3) 12/27/19 07:00 01/26/20 06:59 Apixaban (Eliquis) 2.5 mg BID ORAL 12/27/19 10:00 03/26/20 09:59 12/29/19 09:24 Aztreonam 1 gm/ Sodium Chloride 55 ml @ 110 mls/hr Q8HR IVPB 12/29/19 14:00 01/05/20 13:59 Chlorhexidine Gluconate (Ally-Hex 2%) 1 applic DAILY@2000 TOPIC 12/27/19 20:00 03/26/20 19:59 12/28/19 20:24 Dextrose (Dextrose 50%) 25 ml Q30M PRN IV Hypoglycemia 12/29/19 06:30 03/28/20 06:29 Dextrose (Dextrose 50%) 50 ml Q30M PRN IV Hypoglycemia 12/29/19 06:30 03/28/20 06:29 Insulin Aspart (NovoLOG) EVERY 4 HOURS SUBQ 12/29/19 09:00 03/28/20 08:59 Levofloxacin 100 ml @ 100 mls/hr Q48H IVPB 12/27/19 12:30 01/03/20 12:29 12/27/19 12:17 Norepinephrine Bitartrate 250 ml @ 0 mls/hr Q24H IV 12/28/19 15:00 03/27/20 14:59 12/28/19 15:00 Pantoprazole (Protonix) 40 mg Q12HR IVP 12/27/19 21:00 01/27/20 08:59 12/29/19 09:23 Phenylephrine HCl 50 mg/Sodium Chloride 250 ml @ 0 mls/hr Q24H IV 12/28/19 14:30 01/27/20 14:29 Potassium Phosphate 20 mm/ Sodium Chloride 281.6667 ml @ 46.944 m... ONCE IV 12/29/19 11:00 12/29/19 15:00 Sodium Chloride 1,000 ml @ 75 mls/hr [id number] IV 12/29/19 09:00 01/28/20 08:59 12/29/19 09:24 Vancomycin HCl (Vanco pharmacy to dose) 1 ea DAILY PRN MISC Per rx protocol 12/27/19 10:30 01/26/20 10:29 Assessment/Plan Assessment/Plan Multifocal pneumonia Hypoxemic respiratory failure Toxic metabolic encephalopathy Leukocytosis Metabolic acidosis Acidemia Hyponatremia Acute on chronic renal failure Severe protein calorie malnutrition Elevated troponin, possible non-STEMI Plan IV hydration Oxygen therspy Empiric antibiotics Titrate oxygen Off pressors off IV insulin Saturating well on ventimask Arterial gases noted Monitor for aspiration Neville Ash MD Dec 29, 2019 10:55
[2019-12-29] MEDS ORDERED: Potassium Phosphate 20 MM in NS 275 ML IV SCH (11:00)
--- NOTE | 2019-12-29 11:45 | NUR ---
NURSE NOTES: Dr Markham at bedside assessing pt. Updated him on pt's current condition. Maintenance fluid changed from NS to 1/2 NS @ 75mL/hr.
--- NOTE | 2019-12-29 12:39 | Nephrology Progress Note ---
Assessment/Plan Problem List: (1) Renal failure (ARF), acute on chronic (2) Dehydration (3) Septic shock (4) Lobar pneumonia (5) Pneumonia due to COVID-19 virus (6) NSTEMI (non-ST elevated myocardial infarction) (7) Diabetes Assessment Acute renal failure Hypoxia, pneumonia due to COVID-19 Septic shock on pressors Non-STEMI CA History of congestive heart failure History of hypertension, Diabetes mellitus History of obesity Plan December 28: Remains on Venturi mask. Marked improvement of renal parameters. Serum creatinine of over 9 is now down to 1.6. Electrolytes much improved. Continue per consultants. December 27: Renal parameters improving. Hemodynamically more stable. Off pressors. Continue per current management. Previously: Patient has reasonable urine output at this time Remains on pressors We will adjust IV fluid, will check chemistry panel. If the patient gets to be hemodynamically stable and no improvement in renal parameters will attempt dialysis. Discussed with family and consent for Non tunneled catheter insertion obtained Discussed with RN Per orders Subjective ROS Limited/Unobtainable: Yes Constitutional: Reports: malaise Objective Objective Last 24 Hour Vital Signs Date Time Temp Pulse Resp B/P (MAP) Pulse Ox O2 Delivery O2 Flow Rate FiO2 12/29/19 12:00 12.0 50 12/29/19 12:00 Venturi Mask 12.0 12/29/19 11:30 88 18 155/95 (115) 100 12/29/19 11:00 88 19 142/68 (92) 100 12/29/19 10:30 88 19 136/76 (96) 100 12/29/19 10:00 86 18 142/75 (97) 100 12/29/19 09:00 92 18 139/73 (95) 100 12/29/19 08:30 94 18 136/75 (95) 100 12/29/19 08:16 100 Venturi Mask 12.0 50 12/29/19 08:00 Venturi Mask 12.0 12/29/19 08:00 99.0 88 18 152/107 (122) 100 12/29/19 08:00 88 12/29/19 08:00 12.0 50 12/29/19 07:30 85 19 138/76 (96) 100 12/29/19 07:00 89 20 129/68 (88) 100 8/18/20 06:30 85 20 135/58 (83) 100 12/29/19 06:00 100 20 120/59 (79) 100 12/29/19 05:30 87 16 148/79 (102) 100 12/29/19 05:00 90 18 125/68 (87) 100 12/29/19 04:30 87 18 141/73 (95) 100 12/29/19 04:00 75 12/29/19 04:00 Venturi Mask 14.0 12/29/19 04:00 98.8 88 19 131/72 (91) 100 12/29/19 04:00 12.0 50 12/29/19 03:30 88 19 143/67 (92) 100 12/29/19 03:00 89 19 132/70 (90) 100 12/29/19 02:30 83 16 137/64 (88) 100 12/29/19 02:00 83 19 136/77 (96) 100 12/29/19 01:30 85 18 138/72 (94) 100 12/29/19 01:00 95 20 136/78 (97) 100 12/29/19 00:30 83 18 139/77 (97) 100 12/29/19 00:00 Venturi Mask 14.0 12/29/19 00:00 83 12/29/19 00:00 99.0 82 17 127/69 (88) 100 12/29/19 00:00 14.0 55 12/28/19 23:30 81 19 134/75 (94) 100 12/28/19 23:00 93 20 145/75 (98) 100 12/28/19 22:30 94 20 149/81 (103) 100 12/28/19 22:00 90 23 144/77 (99) 100 12/28/19 21:30 87 22 137/64 (88) 100 12/28/19 21:00 83 20 125/68 (87) 100 12/28/19 20:30 83 16 130/63 (85) 100 12/28/19 20:00 14.0 55 12/28/19 20:00 84 12/28/19 20:00 98.2 82 22 141/64 (89) 100 12/28/19 20:00 Venturi Mask 14.0 12/28/19 19:45 84 23 137/69 (91) 100 12/28/19 19:42 100 Venturi Mask 12.0 50 12/28/19 19:30 84 22 138/74 (95) 100 12/28/19 19:00 85 21 136/72 (93) 100 12/28/19 18:30 85 19 123/64 (83) 100 12/28/19 18:00 83 20 139/66 (90) 100 12/28/19 17:30 85 19 126/72 (90) 100 12/28/19 17:00 79 18 129/61 (83) 100 12/28/19 16:30 80 20 133/65 (87) 100 12/28/19 16:15 96 22 140/116 (124) 99 12/28/19 16:00 14.0 55 12/28/19 16:00 Venturi Mask 14.0 12/28/19 16:00 98.8 85 19 131/64 (86) 99 12/28/19 16:00 92 12/28/19 15:45 86 22 142/65 (90) 99 12/28/19 15:30 88 23 125/63 (83) 12/28/19 15:15 84 18 137/61 (86) 12/28/19 15:00 84 20 121/60 (80) 92 12/28/19 15:00 138/64 12/28/19 14:30 82 19 127/70 (89) 93 12/28/19 14:27 122/65 12/28/19 14:00 83 22 132/65 (87) 99 12/28/19 14:00 132/65 12/28/19 13:30 87 23 125/61 (82) 99 12/28/19 13:00 87 23 129/61 (83) 99 12/28/19 13:00 129/61 Intake and Output 12/28/19 12/29/19 19:00 07:00 Intake Total 2184.74 ml 1667.4 ml Output Total 1980 ml 1290 ml Balance 204.74 ml 377.4 ml Intake IV Total 2184.74 ml 1667.4 ml Output Urine Total 1980 ml 1290 ml # Bowel Movements 2 3 Laboratory Tests 12/28/19 15:05: POC Whole Blood Glucose 142H 12/28/19 16:16: POC Whole Blood Glucose 155H 12/28/19 17:14: POC Whole Blood Glucose 166H 12/28/19 18:48: POC Whole Blood Glucose 145H 12/28/19 21:19: POC Whole Blood Glucose 131H 12/28/19 22:01: POC Whole Blood Glucose 154H 12/29/19 02:19: POC Whole Blood Glucose 145H 12/29/19 03:04: POC Whole Blood Glucose 131H 12/29/19 04:23: POC Whole Blood Glucose 129H 12/29/19 05:10: White Blood Count 9.4, Red Blood Count 3.64L, Hemoglobin 11.1L, Hematocrit 33.7L , Mean Corpuscular Volume 92, Mean Corpuscular Hemoglobin 30.4, Mean Corpuscular Hemoglobin Concent 32.9, Red Cell Distribution Width 13.3, Platelet Count 118L, Mean Platelet Volume 7.1, Neutrophils (%) (Auto) , Lymphocytes (%) ( Auto) , Monocytes (%) (Auto) , Eosinophils (%) (Auto) , Basophils (%) (Auto) , Differential Total Cells Counted 100, Neutrophils % (Manual) 87H, Lymphocytes % (Manual) 4L, Monocytes % (Manual) 9, Eosinophils % (Manual) 0, Basophils % ( Manual) 0, Band Neutrophils 0, Platelet Estimate DecreasedL, Platelet Morphology Normal, Red Blood Cell Morphology Normal, Sodium Level 146#H, Potassium Level 3.5, Chloride Level 110H, Carbon Dioxide Level 25, Anion Gap 11 , Blood Urea Nitrogen 74H, Creatinine 1.6#H, Estimat Glomerular Filtration Rate 43.9, Glucose Level 122#H, Uric Acid 7.6H, Calcium Level 9.1, Phosphorus Level 2.4L, Magnesium Level 2.4, Total Bilirubin 0.9, Aspartate Amino Transf (AST/SGOT ) 27, Alanine Aminotransferase (ALT/SGPT) 29, Alkaline Phosphatase 64, C- Reactive Protein, Quantitative 6.3H, Pro-B-Type Natriuretic Peptide 7892H, Total Protein 6.9, Albumin 3.6, Globulin 3.3, Albumin/Globulin Ratio 1.1 12/29/19 06:28: POC Whole Blood Glucose 127H 12/29/19 06:57: POC Whole Blood Glucose 111H 12/29/19 09:20: POC Whole Blood Glucose 131H Height (Feet): 5 Height (Inches): 6.00 Weight (Pounds): 253 General Appearance: no apparent distress, lethargic EENT: other - On Venturi mask Cardiovascular: tachycardia - Rate mid 80s Respiratory/Chest: decreased breath sounds Abdomen: distended Desmond Markham MD Dec 29, 2019 12:39
[2019-12-29] MEDS: PHENYLEPHRINE IV SCH (12:54)
[2019-12-29] MEDS: NS IV SCH (12:54)
[2019-12-29] MEDS: Norepinephrine Premix 4mg/NS 250mL IV SCH (12:55)
[2019-12-29] MEDS: Aztreonam Inj 1 GM in NS 55 ML IVPB SCH ×2 (13:08→21:53)
--- NOTE | 2019-12-29 13:10 | NUR ---
NURSE NOTES: BS= 157; given 4 units Novolog insulin, per sliding scale. Pt turned and repositioned for comfort.
[2019-12-29] MEDS ORDERED: Tubing IV Secondary IV ONE (13:29)
--- NOTE | 2019-12-29 14:20 | General Progress Note ---
Assessment/Plan Problem List: (1) Lobar pneumonia ICD Codes: J18.1 - Lobar pneumonia, unspecified organism SNOMED: 947576621, 539780996, 559353315 (2) Septic shock ICD Codes: A41.9 - Sepsis, unspecified organism; R65.21 - Severe sepsis with septic shock SNOMED: 03458386, 380836721, 175982405 (3) Diabetes ICD Codes: E11.9 - Type 2 diabetes mellitus without complications SNOMED: 89160509, 438510357, 496251437 (4) Hyponatremia ICD Codes: E87.1 - Hypo-osmolality and hyponatremia SNOMED: 19181994, 359664441, 042759758 (5) Renal failure ICD Codes: N19 - Unspecified kidney failure SNOMED: 12817510, 149694676, 404858387 (6) NSTEMI (non-ST elevated myocardial infarction) ICD Codes: I21.4 - Non-ST elevation (NSTEMI) myocardial infarction SNOMED: 90634202, 310581398, 876921358 (7) Pneumonia due to COVID-19 virus ICD Codes: U07.1 - COVID-19; J12.89 - Other viral pneumonia; J96.01 - Acute respiratory failure with hypoxia SNOMED: 035749296, 474656414, 083029424 (8) Sepsis with acute hypoxic respiratory failure ICD Codes: A41.9 - Sepsis, unspecified organism; R65.20 - Severe sepsis without septic shock; J96.01 - Acute respiratory failure with hypoxia SNOMED: 957343560, 24903531, 167156572 (9) Dehydration ICD Codes: E86.0 - Dehydration SNOMED: 26953506 (10) Renal failure (ARF), acute on chronic ICD Codes: N17.9 - Acute kidney failure, unspecified; N18.9 - Chronic kidney disease, unspecified SNOMED: 667764398 Assessment/Plan: off pressor on insulin drip unstable for transfer non ketotic hyperglycemia covid positive resp insuff Subjective ROS Limited/Unobtainable: Yes Allergies: Coded Allergies: PENICILLINS (Verified Allergy, Unknown, 12/27/19) Objective Last 24 Hour Vital Signs Date Time Temp Pulse Resp B/P (MAP) Pulse Ox O2 Delivery O2 Flow Rate FiO2 12/29/19 13:00 87 18 131/72 (91) 100 12/29/19 12:55 148/80 12/29/19 12:54 97 148/80 12/29/19 12:00 12.0 50 12/29/19 12:00 98.6 86 16 140/72 (94) 100 12/29/19 12:00 Venturi Mask 12.0 12/29/19 11:30 88 18 155/95 (115) 100 12/29/19 11:00 88 19 142/68 (92) 100 12/29/19 10:30 88 19 136/76 (96) 100 12/29/19 10:00 86 18 142/75 (97) 100 12/29/19 09:00 92 18 139/73 (95) 100 12/29/19 08:30 94 18 136/75 (95) 100 12/29/19 08:16 100 Venturi Mask 12.0 50 12/29/19 08:00 Venturi Mask 12.0 12/29/19 08:00 99.0 88 18 152/107 (122) 100 12/29/19 08:00 88 12/29/19 08:00 12.0 50 12/29/19 07:30 85 19 138/76 (96) 100 12/29/19 07:00 89 20 129/68 (88) 100 12/29/19 06:30 85 20 135/58 (83) 100 12/29/19 06:00 100 20 120/59 (79) 100 12/29/19 05:30 87 16 148/79 (102) 100 12/29/19 05:00 90 18 125/68 (87) 100 12/29/19 04:30 87 18 141/73 (95) 100 12/29/19 04:00 75 12/29/19 04:00 Venturi Mask 14.0 12/29/19 04:00 98.8 88 19 131/72 (91) 100 12/29/19 04:00 12.0 50 12/29/19 03:30 88 19 143/67 (92) 100 12/29/19 03:00 89 19 132/70 (90) 100 12/29/19 02:30 83 16 137/64 (88) 100 12/29/19 02:00 83 19 136/77 (96) 100 12/29/19 01:30 85 18 138/72 (94) 100 12/29/19 01:00 95 20 136/78 (97) 100 12/29/19 00:30 83 18 139/77 (97) 100 12/29/19 00:00 Venturi Mask 14.0 12/29/19 00:00 83 12/29/19 00:00 99.0 82 17 127/69 (88) 100 12/29/19 00:00 14.0 55 12/28/19 23:30 81 19 134/75 (94) 100 12/28/19 23:00 93 20 145/75 (98) 100 12/28/19 22:30 94 20 149/81 (103) 100 12/28/19 22:00 90 23 144/77 (99) 100 12/28/19 21:30 87 22 137/64 (88) 100 12/28/19 21:00 83 20 125/68 (87) 100 12/28/19 20:30 83 16 130/63 (85) 100 12/28/19 20:00 14.0 55 12/28/19 20:00 84 12/28/19 20:00 98.2 82 22 141/64 (89) 100 12/28/19 20:00 Venturi Mask 14.0 12/28/19 19:45 84 23 137/69 (91) 100 12/28/19 19:42 100 Venturi Mask 12.0 50 12/28/19 19:30 84 22 138/74 (95) 100 12/28/19 19:00 85 21 136/72 (93) 100 12/28/19 18:30 85 19 123/64 (83) 100 12/28/19 18:00 83 20 139/66 (90) 100 12/28/19 17:30 85 19 126/72 (90) 100 12/28/19 17:00 79 18 129/61 (83) 100 12/28/19 16:30 80 20 133/65 (87) 100 12/28/19 16:15 96 22 140/116 (124) 99 12/28/19 16:00 14.0 55 12/28/19 16:00 Venturi Mask 14.0 12/28/19 16:00 98.8 85 19 131/64 (86) 99 12/28/19 16:00 92 12/28/19 15:45 86 22 142/65 (90) 99 12/28/19 15:30 88 23 125/63 (83) 12/28/19 15:15 84 18 137/61 (86) 12/28/19 15:00 84 20 121/60 (80) 92 12/28/19 15:00 138/64 12/28/19 14:30 82 19 127/70 (89) 93 12/28/19 14:27 122/65 Intake and Output 12/28/19 12/29/19 19:00 07:00 Intake Total 2184.74 ml 1667.4 ml Output Total 1980 ml 1290 ml Balance 204.74 ml 377.4 ml Intake IV Total 2184.74 ml 1667.4 ml Output Urine Total 1980 ml 1290 ml # Bowel Movements 2 3 Laboratory Tests 12/28/19 15:05: POC Whole Blood Glucose 142H 12/28/19 16:16: POC Whole Blood Glucose 155H 12/28/19 17:14: POC Whole Blood Glucose 166H 12/28/19 18:48: POC Whole Blood Glucose 145H 12/28/19 21:19: POC Whole Blood Glucose 131H 12/28/19 22:01: POC Whole Blood Glucose 154H 12/29/19 02:19: POC Whole Blood Glucose 145H 12/29/19 03:04: POC Whole Blood Glucose 131H 12/29/19 04:23: POC Whole Blood Glucose 129H 12/29/19 05:10: White Blood Count 9.4, Red Blood Count 3.64L, Hemoglobin 11.1L, Hematocrit 33.7L , Mean Corpuscular Volume 92, Mean Corpuscular Hemoglobin 30.4, Mean Corpuscular Hemoglobin Concent 32.9, Red Cell Distribution Width 13.3, Platelet Count 118L, Mean Platelet Volume 7.1, Neutrophils (%) (Auto) , Lymphocytes (%) ( Auto) , Monocytes (%) (Auto) , Eosinophils (%) (Auto) , Basophils (%) (Auto) , Differential Total Cells Counted 100, Neutrophils % (Manual) 87H, Lymphocytes % (Manual) 4L, Monocytes % (Manual) 9, Eosinophils % (Manual) 0, Basophils % ( Manual) 0, Band Neutrophils 0, Platelet Estimate DecreasedL, Platelet Morphology Normal, Red Blood Cell Morphology Normal, Sodium Level 146#H, Potassium Level 3.5, Chloride Level 110H, Carbon Dioxide Level 25, Anion Gap 11 , Blood Urea Nitrogen 74H, Creatinine 1.6#H, Estimat Glomerular Filtration Rate 43.9, Glucose Level 122#H, Uric Acid 7.6H, Calcium Level 9.1, Phosphorus Level 2.4L, Magnesium Level 2.4, Total Bilirubin 0.9, Aspartate Amino Transf (AST/SGOT ) 27, Alanine Aminotransferase (ALT/SGPT) 29, Alkaline Phosphatase 64, C- Reactive Protein, Quantitative 6.3H, Pro-B-Type Natriuretic Peptide 7892H, Total Protein 6.9, Albumin 3.6, Globulin 3.3, Albumin/Globulin Ratio 1.1 12/29/19 06:28: POC Whole Blood Glucose 127H 12/29/19 06:57: POC Whole Blood Glucose 111H 12/29/19 09:20: POC Whole Blood Glucose 131H Height (Feet): 5 Height (Inches): 6.00 Weight (Pounds): 253 Isaías Mendoza MD Dec 29, 2019 14:20
--- NOTE | 2019-12-29 14:36 | NUR ---
[employer] SPECIALIST NOTE Pt is on venturi mask, and COVID positive. SW spoke w/ pt's daughter, Yael Clark [phone] and obtained information. Per Yael, pt was staying in senior care less than a week. PT has one adult daughter. Yael is willing to be the decision maker if pt cannot make one for himself. Yael shares that pt does not have mental health/substance abuse issue. Yael also reports that pt was ambulate independently w/o DMEs prior to admission. Yael expresses full code for pt. SW to F/u as needed.
--- NOTE | 2019-12-29 15:10 | NUR ---
NURSE NOTES: Spoke to Nahed from [facility] to facilitate transfer to [facility]. Dr Mendoza made aware and discharge order was given. Spoke to Ashley, Divisional Human Resources Director, who called Dr Tiffani Acuna for clearance to transfer.
--- NOTE | 2019-12-29 15:15 | Surgery Progress Note ---
Surgery Progress Note Subjective Additional Comments leukocytosis resolved renal function improving daily uop okay Objective Last 24 Hour Vital Signs Date Time Temp Pulse Resp B/P (MAP) Pulse Ox O2 Delivery O2 Flow Rate FiO2 12/29/19 14:00 90 17 139/73 (95) 83 12/29/19 13:30 87 20 146/65 (92) 97 12/29/19 13:00 87 18 131/72 (91) 100 12/29/19 12:55 148/80 12/29/19 12:54 97 148/80 12/29/19 12:00 12.0 50 12/29/19 12:00 98.6 86 16 140/72 (94) 100 12/29/19 12:00 Venturi Mask 12.0 12/29/19 11:30 88 18 155/95 (115) 100 12/29/19 11:00 88 19 142/68 (92) 100 12/29/19 10:30 88 19 136/76 (96) 100 12/29/19 10:00 86 18 142/75 (97) 100 12/29/19 09:00 92 18 139/73 (95) 100 12/29/19 08:30 94 18 136/75 (95) 100 12/29/19 08:16 100 Venturi Mask 12.0 50 12/29/19 08:00 Venturi Mask 12.0 12/29/19 08:00 99.0 88 18 152/107 (122) 100 12/29/19 08:00 88 12/29/19 08:00 12.0 50 12/29/19 07:30 85 19 138/76 (96) 100 12/29/19 07:00 89 20 129/68 (88) 100 12/29/19 06:30 85 20 135/58 (83) 100 12/29/19 06:00 100 20 120/59 (79) 100 12/29/19 05:30 87 16 148/79 (102) 100 12/29/19 05:00 90 18 125/68 (87) 100 12/29/19 04:30 87 18 141/73 (95) 100 12/29/19 04:00 75 12/29/19 04:00 Venturi Mask 14.0 12/29/19 04:00 98.8 88 19 131/72 (91) 100 12/29/19 04:00 12.0 50 12/29/19 03:30 88 19 143/67 (92) 100 12/29/19 03:00 89 19 132/70 (90) 100 12/29/19 02:30 83 16 137/64 (88) 100 12/29/19 02:00 83 19 136/77 (96) 100 12/29/19 01:30 85 18 138/72 (94) 100 12/29/19 01:00 95 20 136/78 (97) 100 12/29/19 00:30 83 18 139/77 (97) 100 12/29/19 00:00 Venturi Mask 14.0 12/29/19 00:00 83 12/29/19 00:00 99.0 82 17 127/69 (88) 100 12/29/19 00:00 14.0 55 12/28/19 23:30 81 19 134/75 (94) 100 12/28/19 23:00 93 20 145/75 (98) 100 12/28/19 22:30 94 20 149/81 (103) 100 12/28/19 22:00 90 23 144/77 (99) 100 12/28/19 21:30 87 22 137/64 (88) 100 12/28/19 21:00 83 20 125/68 (87) 100 12/28/19 20:30 83 16 130/63 (85) 100 12/28/19 20:00 14.0 55 12/28/19 20:00 84 12/28/19 20:00 98.2 82 22 141/64 (89) 100 12/28/19 20:00 Venturi Mask 14.0 12/28/19 19:45 84 23 137/69 (91) 100 12/28/19 19:42 100 Venturi Mask 12.0 50 12/28/19 19:30 84 22 138/74 (95) 100 12/28/19 19:00 85 21 136/72 (93) 100 12/28/19 18:30 85 19 123/64 (83) 100 12/28/19 18:00 83 20 139/66 (90) 100 12/28/19 17:30 85 19 126/72 (90) 100 12/28/19 17:00 79 18 129/61 (83) 100 12/28/19 16:30 80 20 133/65 (87) 100 12/28/19 16:15 96 22 140/116 (124) 99 12/28/19 16:00 14.0 55 12/28/19 16:00 Venturi Mask 14.0 12/28/19 16:00 98.8 85 19 131/64 (86) 99 12/28/19 16:00 92 12/28/19 15:45 86 22 142/65 (90) 99 12/28/19 15:30 88 23 125/63 (83) 12/28/19 15:15 84 18 137/61 (86) I&O Intake and Output 12/28/19 12/29/19 19:00 07:00 Intake Total 2184.74 ml 1667.4 ml Output Total 1980 ml 1290 ml Balance 204.74 ml 377.4 ml Intake IV Total 2184.74 ml 1667.4 ml Output Urine Total 1980 ml 1290 ml # Bowel Movements 2 3 Cardiovascular: RSR Respiratory: decreased breath sounds Abdomen: soft, non-tender, present bowel sounds Extremities: edema, no tenderness, no cyanosis Laboratory Tests Test 12/28/19 16:16 12/28/19 17:14 12/28/19 18:48 12/28/19 21:19 POC Whole Blood Glucose 155 MG/DL (74-106) H 166 MG/DL (74-106) H 145 MG/DL (74-106) H 131 MG/DL (74-106) H Test 12/28/19 22:01 12/29/19 02:19 12/29/19 03:04 12/29/19 04:23 POC Whole Blood Glucose 154 MG/DL (74-106) H 145 MG/DL (74-106) H 131 MG/DL (74-106) H 129 MG/DL (74-106) H Test 12/29/19 05:10 12/29/19 06:28 12/29/19 06:57 12/29/19 09:20 White Blood Count 9.4 K/UL (4.8-10.8) Red Blood Count 3.64 M/UL (4.70-6.10) L Hemoglobin 11.1 G/DL (14.2-18.0) L Hematocrit 33.7 % (42.0-52.0) L Mean Corpuscular Volume 92 FL (80-99) Mean Corpuscular Hemoglobin 30.4 PG (27.0-31.0) Mean Corpuscular Hemoglobin Concent 32.9 G/DL (32.0-36.0) Red Cell Distribution Width 13.3 % (11.6-14.8) Platelet Count 118 K/UL (150-450) L Mean Platelet Volume 7.1 FL (6.5-10.1) Neutrophils (%) (Auto) % (45.0-75.0) Lymphocytes (%) (Auto) % (20.0-45.0) Monocytes (%) (Auto) % (1.0-10.0) Eosinophils (%) (Auto) % (0.0-3.0) Basophils (%) (Auto) % (0.0-2.0) Differential Total Cells Counted 100 Neutrophils % (Manual) 87 % (45-75) H Lymphocytes % (Manual) 4 % (20-45) L Monocytes % (Manual) 9 % (1-10) Eosinophils % (Manual) 0 % (0-3) Basophils % (Manual) 0 % (0-2) Band Neutrophils 0 % (0-8) Platelet Estimate Decreased L Platelet Morphology Normal Red Blood Cell Morphology Normal Sodium Level 146 MMOL/L (136-145) #H Potassium Level 3.5 MMOL/L (3.5-5.1) Chloride Level 110 MMOL/L (98-107) H Carbon Dioxide Level 25 MMOL/L (21-32) Anion Gap 11 mmol/L (5-15) Blood Urea Nitrogen 74 mg/dL (7-18) H Creatinine 1.6 MG/DL (0.55-1.30) #H Estimat Glomerular Filtration Rate 43.9 mL/min (>60) Glucose Level 122 MG/DL (74-106) #H Uric Acid 7.6 MG/DL (2.6-7.2) H Calcium Level 9.1 MG/DL (8.5-10.1) Phosphorus Level 2.4 MG/DL (2.5-4.9) L Magnesium Level 2.4 MG/DL (1.8-2.4) Total Bilirubin 0.9 MG/DL (0.2-1.0) Aspartate Amino Transf (AST/SGOT) 27 U/L (15-37) Alanine Aminotransferase (ALT/SGPT) 29 U/L (12-78) Alkaline Phosphatase 64 U/L (46-116) C-Reactive Protein, Quantitative 6.3 mg/dL (0.00-0.90) H Pro-B-Type Natriuretic Peptide 7892 pg/mL (0-125) H Total Protein 6.9 G/DL (6.4-8.2) Albumin 3.6 G/DL (3.4-5.0) Globulin 3.3 g/dL Albumin/Globulin Ratio 1.1 (1.0-2.7) POC Whole Blood Glucose 127 MG/DL (74-106) H 111 MG/DL (74-106) H 131 MG/DL (74-106) H Plan Problems: (1) Septic shock Assessment & Plan: 64M septic shock respiratory insufficiency, leukocytosis, abnormal labs, acute renal insufficiency. uop 50cc/hr currently on pressors in critical condition patient may need HD soon but currently too unstable on pressors to tolerate HD discussed with renal and nursing staff hold on HD line until more stable to receive HD consent obtained from family will monitor closely thank you trend labs wean pressors respiratory support improved with hydration monitor labs hld HD Right IJ central venous catheter terminates in the superior vena cava. Patchy airspace opacity throughout the left lower lung field, consistent with infiltrate. Follow-up chest radiograph recommended. No pleural effusion or pneumothorax. (2) Lobar pneumonia (3) Diabetes (4) CHF (congestive heart failure) (5) Hyponatremia (6) Renal failure (7) Obesity (8) HTN (hypertension) (9) HLD (hyperlipidemia) (10) NSTEMI (non-ST elevated myocardial infarction) (11) Sepsis with acute hypoxic respiratory failure (12) Pneumonia due to COVID-19 virus Collins Ford Dec 29, 2019 15:15
--- NOTE | 2019-12-29 15:34 | NUR ---
Discharge planning Patient to be transferred to [facility] within network DC order fax to LUCAS Mcgee fax: [phone] Everardo to call nursing station or CM when bed available and to arrange for transportation
--- NOTE | 2019-12-29 15:45 | NUR ---
NURSE NOTES: Pt fully cleaned and linens changed after having a small soft brown BM. Central line dressing changed, using aseptic technique. Pt turned and repositioned.
--- NOTE | 2019-12-29 17:30 | NUR ---
NURSE NOTES: BS 168. 4 units Novolog insulin given, per sliding scale. Pt remains on Venturi mask at 12L, 40% FiO2. O2sat 100%. Pt tolerating well, respirations WNL.
--- NOTE | 2019-12-29 17:55 | Cardiac Electrophysiology PN ---
Assessment/Plan Assessment/Plan 1. Septic shock. Patient is already on iv Abx, as well as IV fluid 100 mL an hour. Off pressors 2. Resp failure on FM 14 liters 3. Troponin elevation, likely due to renal failure. Does not have any chest pain. Repeat the troponin for further evaluation. His echocardiogram showed EF of 55%. 4. DVT. On Eliquis 2.5 mg b.i.d. 5. History of recent COVID pneumonia. Rapid COVID is negative. 6. Acute renal failure, on IV fluids per Dr. Markham. Subjective Subjective Confused in restraints. Has LLE DVT on Eliquis. Off pressors and off insulin drip. Echo Nl EF. Being transferred to contracted facility in [place] Objective Last 24 Hour Vital Signs Date Time Temp Pulse Resp B/P (MAP) Pulse Ox O2 Delivery O2 Flow Rate FiO2 12/29/19 17:33 89 17 130/76 (94) 99 12/29/19 17:00 103 17 141/81 (101) 90 12/29/19 16:32 91 21 101/80 (87) 90 12/29/19 16:00 Venturi Mask 12.0 12/29/19 16:00 98.6 92 18 149/79 (102) 100 12/29/19 16:00 12.0 50 12/29/19 16:00 99 12/29/19 15:30 102 20 135/65 (88) 100 12/29/19 15:00 102 20 145/80 (101) 92 12/29/19 14:30 88 20 139/76 (97) 89 12/29/19 14:00 90 17 139/73 (95) 83 12/29/19 13:30 87 20 146/65 (92) 97 12/29/19 13:00 87 18 131/72 (91) 100 12/29/19 12:55 148/80 12/29/19 12:54 97 148/80 12/29/19 12:00 12.0 50 12/29/19 12:00 92 12/29/19 12:00 98.6 86 16 140/72 (94) 100 12/29/19 12:00 Venturi Mask 12.0 12/29/19 11:30 88 18 155/95 (115) 100 12/29/19 11:00 88 19 142/68 (92) 100 12/29/19 10:30 88 19 136/76 (96) 100 12/29/19 10:00 86 18 142/75 (97) 100 12/29/19 09:00 92 18 139/73 (95) 100 12/29/19 08:30 94 18 136/75 (95) 100 12/29/19 08:16 100 Venturi Mask 12.0 50 12/29/19 08:00 Venturi Mask 12.0 12/29/19 08:00 99.0 88 18 152/107 (122) 100 12/29/19 08:00 88 12/29/19 08:00 12.0 50 12/29/19 07:30 85 19 138/76 (96) 100 12/29/19 07:00 89 20 129/68 (88) 100 12/29/19 06:30 85 20 135/58 (83) 100 12/29/19 06:00 100 20 120/59 (79) 100 12/29/19 05:30 87 16 148/79 (102) 100 12/29/19 05:00 90 18 125/68 (87) 100 12/29/19 04:30 87 18 141/73 (95) 100 12/29/19 04:00 75 12/29/19 04:00 Venturi Mask 14.0 12/29/19 04:00 98.8 88 19 131/72 (91) 100 12/29/19 04:00 12.0 50 12/29/19 03:30 88 19 143/67 (92) 100 12/29/19 03:00 89 19 132/70 (90) 100 12/29/19 02:30 83 16 137/64 (88) 100 12/29/19 02:00 83 19 136/77 (96) 100 12/29/19 01:30 85 18 138/72 (94) 100 12/29/19 01:00 95 20 136/78 (97) 100 12/29/19 00:30 83 18 139/77 (97) 100 12/29/19 00:00 Venturi Mask 14.0 12/29/19 00:00 83 12/29/19 00:00 99.0 82 17 127/69 (88) 100 12/29/19 00:00 14.0 55 12/28/19 23:30 81 19 134/75 (94) 100 12/28/19 23:00 93 20 145/75 (98) 100 12/28/19 22:30 94 20 149/81 (103) 100 12/28/19 22:00 90 23 144/77 (99) 100 12/28/19 21:30 87 22 137/64 (88) 100 12/28/19 21:00 83 20 125/68 (87) 100 12/28/19 20:30 83 16 130/63 (85) 100 12/28/19 20:00 14.0 55 12/28/19 20:00 84 12/28/19 20:00 98.2 82 22 141/64 (89) 100 12/28/19 20:00 Venturi Mask 14.0 12/28/19 19:45 84 23 137/69 (91) 100 12/28/19 19:42 100 Venturi Mask 12.0 50 12/28/19 19:30 84 22 138/74 (95) 100 12/28/19 19:00 85 21 136/72 (93) 100 12/28/19 18:30 85 19 123/64 (83) 100 12/28/19 18:00 83 20 139/66 (90) 100 Intake and Output 12/28/19 12/29/19 19:00 07:00 Intake Total 2184.74 ml 1667.4 ml Output Total 1980 ml 1290 ml Balance 204.74 ml 377.4 ml Intake IV Total 2184.74 ml 1667.4 ml Output Urine Total 1980 ml 1290 ml # Bowel Movements 2 3 Laboratory Tests Test 12/28/19 18:48 12/28/19 21:19 12/28/19 22:01 12/29/19 02:19 POC Whole Blood Glucose 145 MG/DL (74-106) H 131 MG/DL (74-106) H 154 MG/DL (74-106) H 145 MG/DL (74-106) H Test 12/29/19 03:04 12/29/19 04:23 12/29/19 05:10 12/29/19 06:28 POC Whole Blood Glucose 131 MG/DL (74-106) H 129 MG/DL (74-106) H 127 MG/DL (74-106) H White Blood Count 9.4 K/UL (4.8-10.8) Red Blood Count 3.64 M/UL (4.70-6.10) L Hemoglobin 11.1 G/DL (14.2-18.0) L Hematocrit 33.7 % (42.0-52.0) L Mean Corpuscular Volume 92 FL (80-99) Mean Corpuscular Hemoglobin 30.4 PG (27.0-31.0) Mean Corpuscular Hemoglobin Concent 32.9 G/DL (32.0-36.0) Red Cell Distribution Width 13.3 % (11.6-14.8) Platelet Count 118 K/UL (150-450) L Mean Platelet Volume 7.1 FL (6.5-10.1) Neutrophils (%) (Auto) % (45.0-75.0) Lymphocytes (%) (Auto) % (20.0-45.0) Monocytes (%) (Auto) % (1.0-10.0) Eosinophils (%) (Auto) % (0.0-3.0) Basophils (%) (Auto) % (0.0-2.0) Differential Total Cells Counted 100 Neutrophils % (Manual) 87 % (45-75) H Lymphocytes % (Manual) 4 % (20-45) L Monocytes % (Manual) 9 % (1-10) Eosinophils % (Manual) 0 % (0-3) Basophils % (Manual) 0 % (0-2) Band Neutrophils 0 % (0-8) Platelet Estimate Decreased L Platelet Morphology Normal Red Blood Cell Morphology Normal Sodium Level 146 MMOL/L (136-145) #H Potassium Level 3.5 MMOL/L (3.5-5.1) Chloride Level 110 MMOL/L (98-107) H Carbon Dioxide Level 25 MMOL/L (21-32) Anion Gap 11 mmol/L (5-15) Blood Urea Nitrogen 74 mg/dL (7-18) H Creatinine 1.6 MG/DL (0.55-1.30) #H Estimat Glomerular Filtration Rate 43.9 mL/min (>60) Glucose Level 122 MG/DL (74-106) #H Uric Acid 7.6 MG/DL (2.6-7.2) H Calcium Level 9.1 MG/DL (8.5-10.1) Phosphorus Level 2.4 MG/DL (2.5-4.9) L Magnesium Level 2.4 MG/DL (1.8-2.4) Total Bilirubin 0.9 MG/DL (0.2-1.0) Aspartate Amino Transf (AST/SGOT) 27 U/L (15-37) Alanine Aminotransferase (ALT/SGPT) 29 U/L (12-78) Alkaline Phosphatase 64 U/L (46-116) C-Reactive Protein, Quantitative 6.3 mg/dL (0.00-0.90) H Pro-B-Type Natriuretic Peptide 7892 pg/mL (0-125) H Total Protein 6.9 G/DL (6.4-8.2) Albumin 3.6 G/DL (3.4-5.0) Globulin 3.3 g/dL Albumin/Globulin Ratio 1.1 (1.0-2.7) Test 12/29/19 06:57 12/29/19 09:20 POC Whole Blood Glucose 111 MG/DL (74-106) H 131 MG/DL (74-106) H Microbiology Date/Time Source Procedure Growth Status 12/27/19 03:50 Blood Blood Culture - Preliminary Gram Positive Cocci Resulted 12/27/19 03:30 Blood Blood Culture - Preliminary Resulted 12/27/19 09:00 Nasal Nares MRSA Culture - Final Staphylococcus Aureus - Mrsa Complete 12/27/19 04:45 Nasopharynx SARS-CoV-2 RdRp Gene Assay - Final Complete 12/27/19 05:30 Indwelling Cath Urine Culture - Preliminary Gram Negative Bacillus 1 Resulted 12/27/19 09:00 Rectal Mucosa VRE Culture - Final Enterococcus Faecalis - Vre Complete Objective HEAD AND NECK: Shows mild JVD. LUNGS: Coarse rhonchi. CARDIOVASCULAR: Shows tachycardic S1 and S2 with no gallop. ABDOMEN: Soft. EXTREMITIES: No pitting edema. Agustin Morales MD Dec 29, 2019 17:55
--- NOTE | 2019-12-29 19:18 | NUR ---
NURSE HAND-OFF REPORT: Latest Vital Signs: Temperature 98.6 , Pulse 94 , B/P 133 /71 , Respiratory Rate 19 , O2 SAT 99 , Venturi Mask, O2 Flow Rate 12.0 . Vital Sign Comment: EKG Rhythm: Atrial Fibrillation Rhythm change?: N MD Notified?: MD Response: Latest Cook Fall Score: 50 Fall Risk: High Risk Safety Measures: Call light Within Reach, Bed Alarm Zone 2, Side Rails Side Rails x2, Bed position Low and Locked. Fall Precautions: Yellow Socks Yellow Gown Door Sign Patient Fall Education Report given to CHRISTINA Bonilla.
--- NOTE | 2019-12-29 19:18 | NUR ---
NURSE NOTES: Aminah from transfer center requested COVID results before assigning a bed. Faxed to [phone]
--- NOTE | 2019-12-29 19:30 | NUR ---
NURSE NOTES: Received pt asleep but confused and easily arousable to verbal stimulation, Afib on the monitor, bp stable afebrile. bilateral soft wrist restraints on for safety to avoid pulling out therapeutic devices, NPO, NGT clamped, oral care done, Parker to gravity with lg amt of na yellow urine. monitor I and O. Monitor lytes. Will continue to monitor.
--- NOTE | 2019-12-29 20:02 | NUR ---
NURSE NOTES: Spoke to [facility] [employer]. No ICU beds available at this time. Patient is currently on no drips, Levo gtt dc'd yesterday and Insulin gtt dc'd this morning. patient is on 55% VM. ICU bed is a potential for tomorrow or is downgrade for possibly the morning. PANTERA on CM [phone] Gogi number to also get a status update. Update was given. Will pend this until bed becomes available or patient is downgraded in the morning. All clinical documentation is ready for transfer. Will con't to monitor.
[2019-12-29] MEDS: Dyna-Hex 2% Top Sol 2oz TOPIC SCH (20:17)
--- NOTE | 2019-12-29 21:00 | NUR ---
NURSE NOTES: Accucheck with coverage, pls see EMAR. Watch for any hypoglycemic reaction.
[2019-12-30] VITALS (25 sets, daily range): BP systolic 128–168; BP diastolic 55–88
--- NOTE | 2019-12-30 | NUR ---
NURSE NOTES: Had x1 soft brownish bowel movement. cleaned up pt.
--- NOTE | 2019-12-30 01:00 | NUR ---
NURSE NOTES: Fio2 down to 45% ventimask 02 sat remained 98%.
[2019-12-30] MEDS: NovoLOG Insulin Flexpen SUBQ SCH ×5 (01:30→18:24)
--- NOTE | 2019-12-30 02:00 | NUR ---
NURSE NOTES: Afib on the monitor controlled rate, bp stable afebrile.
--- NOTE | 2019-12-30 04:00 | NUR ---
NURSE NOTES: Complete bed bath with bed changed done.
[2019-12-30 05:17] LABS: HEMATOCRIT 36.3 % (42.0-52.0); HEMOGLOBIN 11.8 G/DL (14.2-18.0); MEAN CORPUSCULAR VOLUME 94 FL (80-99); PLATELET COUNT 113 K/UL (150-450); RED BLOOD COUNT 3.86 M/UL (4.70-6.10); RED CELL DISTRIBUTION WIDTH 13.3 % (11.6-14.8)
[2019-12-30 05:39] LABS: ANION GAP 9 mmol/L (5-15); BLOOD UREA NITROGEN 44 mg/dL (7-18); CALCIUM 9.2 MG/DL (8.5-10.1); CARBON DIOXIDE 25 MMOL/L (21-32); CHLORIDE 114 MMOL/L (98-107); CREATININE 1.2 MG/DL (0.55-1.30); POTASSIUM 3.9 MMOL/L (3.5-5.1); SODIUM 148 MMOL/L (136-145)
[2019-12-30] MEDS: Aztreonam Inj 1 GM in NS 55 ML IVPB SCH ×2 (05:53→14:15)
--- NOTE | 2019-12-30 06:00 | NUR ---
NURSE NOTES: Bilateral soft wrist restraints on for safety to avoid the risk of fall, on fall precaution.
--- NOTE | 2019-12-30 06:34 | General Progress Note ---
Assessment/Plan Problem List: (1) Sepsis with acute hypoxic respiratory failure ICD Codes: A41.9 - Sepsis, unspecified organism; R65.20 - Severe sepsis without septic shock; J96.01 - Acute respiratory failure with hypoxia SNOMED: 179385023, 64164167, 520665648 (2) NSTEMI (non-ST elevated myocardial infarction) ICD Codes: I21.4 - Non-ST elevation (NSTEMI) myocardial infarction SNOMED: 74647087, 989605231, 333021962 (3) HLD (hyperlipidemia) ICD Codes: E78.5 - Hyperlipidemia, unspecified SNOMED: 91932488, 936482921, 188286358 (4) HTN (hypertension) ICD Codes: I10 - Essential (primary) hypertension SNOMED: 65084437, 601708952, 811372957 (5) Diabetes ICD Codes: E11.9 - Type 2 diabetes mellitus without complications SNOMED: 64012322, 945623454, 280244013 (6) Lobar pneumonia ICD Codes: J18.1 - Lobar pneumonia, unspecified organism SNOMED: 616084770, 209184743, 869290726 (7) Septic shock ICD Codes: A41.9 - Sepsis, unspecified organism; R65.21 - Severe sepsis with septic shock SNOMED: 99220271, 023342584, 979829415 (8) Abnormal TSH ICD Codes: R79.89 - Other specified abnormal findings of blood chemistry SNOMED: 500213087 Assessment/Plan: continue Novolog high dose every 4 hours repeat TSH, free T4, free T3 tomorrow no need for thyroid medications for now Subjective ROS Limited/Unobtainable: Yes Allergies: Coded Allergies: PENICILLINS (Verified Allergy, Unknown, 12/27/19) Subjective events noted in ICU glucose values controlled NPO Item Value Date Time Bedside Blood Glucose 166 mg/dl H 12/30/19 0544 Bedside Blood Glucose 176 mg/dl H 12/30/19 0130 Bedside Blood Glucose 168 mg/dl H 12/29/19 2152 Bedside Blood Glucose 168 mg/dl H 12/29/19 1738 Bedside Blood Glucose 157 mg/dl H 12/29/19 1308 Bedside Blood Glucose 131 mg/dl H 12/29/19 0900 Bedside Blood Glucose 116 mg/dl 12/29/19 0542 Bedside Blood Glucose 145 mg/dl H 12/29/19 0200 Objective Last 24 Hour Vital Signs Date Time Temp Pulse Resp B/P (MAP) Pulse Ox O2 Delivery O2 Flow Rate FiO2 12/30/19 03:00 99 21 129/72 (91) 100 12/30/19 02:30 97 20 130/73 (92) 100 12/30/19 02:00 96 18 141/72 (95) 99 12/30/19 01:30 99 22 133/74 (93) 99 12/30/19 01:00 95 21 129/73 (91) 98 12/30/19 00:00 99 12/30/19 00:00 Venturi Mask 10.0 12/30/19 00:00 98.8 91 20 137/76 (96) 99 12/30/19 00:00 12.0 50 12/29/19 23:00 94 21 137/69 (91) 12/29/19 22:00 98 20 144/84 (104) 99 12/29/19 21:00 90 18 136/75 (95) 99 12/29/19 20:00 12.0 50 12/29/19 20:00 99 Venturi Mask 10.0 45 12/29/19 20:00 97 12/29/19 20:00 Venturi Mask 12.0 12/29/19 20:00 99.0 87 18 130/75 (93) 100 12/29/19 19:00 94 19 133/71 (91) 99 12/29/19 18:30 94 17 132/73 (92) 89 12/29/19 18:00 75 16 144/82 (102) 99 12/29/19 17:33 89 17 130/76 (94) 99 12/29/19 17:00 103 17 141/81 (101) 90 12/29/19 16:32 91 21 101/80 (87) 90 12/29/19 16:00 Venturi Mask 12.0 12/29/19 16:00 98.6 92 18 149/79 (102) 100 12/29/19 16:00 12.0 50 12/29/19 16:00 99 12/29/19 15:30 102 20 135/65 (88) 100 12/29/19 15:00 102 20 145/80 (101) 92 12/29/19 14:30 88 20 139/76 (97) 89 12/29/19 14:00 90 17 139/73 (95) 83 12/29/19 13:30 87 20 146/65 (92) 97 12/29/19 13:00 87 18 131/72 (91) 100 12/29/19 12:55 148/80 12/29/19 12:54 97 148/80 12/29/19 12:00 12.0 50 12/29/19 12:00 92 12/29/19 12:00 98.6 86 16 140/72 (94) 100 12/29/19 12:00 Venturi Mask 12.0 12/29/19 11:30 88 18 155/95 (115) 100 12/29/19 11:00 88 19 142/68 (92) 100 12/29/19 10:30 88 19 136/76 (96) 100 12/29/19 10:00 86 18 142/75 (97) 100 12/29/19 09:00 92 18 139/73 (95) 100 12/29/19 08:30 94 18 136/75 (95) 100 12/29/19 08:16 100 Venturi Mask 12.0 50 12/29/19 08:00 Venturi Mask 12.0 12/29/19 08:00 99.0 88 18 152/107 (122) 100 12/29/19 08:00 88 12/29/19 08:00 12.0 50 12/29/19 07:30 85 19 138/76 (96) 100 12/29/19 07:00 89 20 129/68 (88) 100 Intake and Output 12/29/19 12/30/19 19:00 07:00 Intake Total 1558.332 ml Output Total 1445 ml 1000 ml Balance 113.332 ml -1000 ml Intake IV Total 1378.332 ml Other 180 ml Output Urine Total 1445 ml 1000 ml # Bowel Movements 1 4 Laboratory Tests 12/29/19 06:57: POC Whole Blood Glucose 111H 12/29/19 09:20: POC Whole Blood Glucose 131H 12/30/19 04:30: White Blood Count 9.0, Red Blood Count 3.86L, Hemoglobin 11.8L, Hematocrit 36.3L , Mean Corpuscular Volume 94, Mean Corpuscular Hemoglobin 30.4, Mean Corpuscular Hemoglobin Concent 32.4, Red Cell Distribution Width 13.3, Platelet Count 113L, Mean Platelet Volume 7.8, Neutrophils (%) (Auto) , Lymphocytes (%) ( Auto) , Monocytes (%) (Auto) , Eosinophils (%) (Auto) , Basophils (%) (Auto) , Sodium Level 148H, Potassium Level 3.9, Chloride Level 114H, Carbon Dioxide Level 25, Anion Gap 9, Blood Urea Nitrogen 44H, Creatinine 1.2, Estimat Glomerular Filtration Rate > 60, Glucose Level 189H, Calcium Level 9.2, Random Vancomycin Level 4.8 Height (Feet): 5 Height (Inches): 6.00 Weight (Pounds): 246 Objective Current Medications Medications (Trade) Dose Ordered Sig/Susana Route PRN Reason Start Time Stop Time Status Last Admin Dose Admin Acetaminophen (Tylenol) 500 mg Q4H PRN ORAL Mild Pain (Pain Scale 1-3) 12/27/19 07:00 01/26/20 06:59 Apixaban (Eliquis) 2.5 mg BID ORAL 12/27/19 10:00 03/26/20 09:59 12/29/19 17:37 Aztreonam 1 gm/ Sodium Chloride 55 ml @ 110 mls/hr Q8HR IVPB 12/29/19 14:00 01/05/20 13:59 12/30/19 05:53 Chlorhexidine Gluconate (Ally-Hex 2%) 1 applic DAILY@2000 TOPIC 12/27/19 20:00 03/26/20 19:59 12/29/19 20:17 Dextrose (Dextrose 50%) 25 ml Q30M PRN IV Hypoglycemia 12/29/19 06:30 03/28/20 06:29 Dextrose (Dextrose 50%) 50 ml Q30M PRN IV Hypoglycemia 12/29/19 06:30 03/28/20 06:29 Insulin Aspart (NovoLOG) EVERY 4 HOURS SUBQ 12/29/19 09:00 03/28/20 08:59 12/30/19 05:44 Levofloxacin 100 ml @ 100 mls/hr Q48H IVPB 12/27/19 12:30 01/03/20 12:29 12/29/19 12:57 Norepinephrine Bitartrate 250 ml @ 0 mls/hr Q24H IV 12/28/19 15:00 03/27/20 14:59 12/28/19 15:00 Pantoprazole (Protonix) 40 mg Q12HR IVP 12/27/19 21:00 01/27/20 08:59 12/29/19 21:08 Phenylephrine HCl 50 mg/Sodium Chloride 250 ml @ 0 mls/hr Q24H IV 12/28/19 14:30 01/27/20 14:29 Sodium Chloride 1,000 ml @ 75 mls/hr [id number] IV 12/29/19 09:00 01/28/20 08:59 12/29/19 22:47 Vancomycin HCl ([facility] pharmacy to dose) 1 ea DAILY PRN MISC Per rx protocol 12/27/19 10:30 01/26/20 10:29 Vancomycin/Sodium Chloride 275 ml @ 137.5 mls/ hr ONCE ONCE IVPB 12/30/19 08:00 12/30/19 09:59 Kaiser Yen MD Dec 30, 2019 06:34
--- NOTE | 2019-12-30 07:22 | NUR ---
NURSE HAND-OFF REPORT: Latest Vital Signs: Temperature 98.4 , Pulse 97 , B/P 147 /71 , Respiratory Rate 19 , O2 SAT 100 , Venturi Mask, O2 Flow Rate 10.0 . Vital Sign Comment: EKG Rhythm: Atrial Fibrillation Rhythm change?: N Notified?: n Response: Order Received& Read Back Latest Cook Fall Score: 50 Fall Risk: High Risk Safety Measures: Call light Within Reach, Bed Alarm Zone 2, Side Rails Side Rails x2, Bed position Low and Locked. Fall Precautions: Yellow Socks Yellow Gown Door Sign Patient Fall Education Report given to .
--- NOTE | 2019-12-30 07:40 | NUR ---
NURSE NOTES: LATE ENTRY: RECEIVED REPORT FROM Wanda CRUZ PT IN BED. VERBAL GARBLED. DISORIENTED, MALTESE SPEAKING. PUPILS 3MM, SLUGGISH. AFIB ON MONITOR. VENTURI MASK 45%. SECRETIONS SCANT. TRACH DRESSING, DRY AND INTACT. ABDOMEN ROUND, NON TENDER. NO BM AT THIS TIME. LEFT NARES, NGT, CLAMPED . HUDSON PATENT, DRAINING BELOW BLADDER, YELLOW URINE, SEDIMENT NOTED. SKIN INTACT. NO JVD. UPPER LOWER EXTREMITY MOVEMENT EQUAL. RIJ TLC. RUNNING 1/2 NS AT 75ML/HR. ACCU CHK Q4HR. BILATERAL SOFT WRIST RESTRAINTS PRESENT. CIRCULATION AND COMFORT CHECK COMPLETE. DROPLET PRECAUTIONS IN PACE. WILL CONTINUE TO MONITOR PT.
[2019-12-30 07:49] LABS: ALBUMIN 3.2 G/DL (3.4-5.0); ALKALINE PHOSPHATASE 83 U/L (46-116); ASPARTATE AMINO TRANSFERASE 21 U/L (15-37); BILIRUBIN,DIRECT 0.3 MG/DL (0.0-0.3); BILIRUBIN,TOTAL 1.1 MG/DL (0.2-1.0)
[2019-12-30 07:59] LABS: ALANINE AMINOTRANSFERASE 30 U/L (12-78)
[2019-12-30] MEDS ORDERED: Vancomycin 1.5gm/NS Premix IVPB ONE (08:00)
[2019-12-30 08:08] LABS: PHOSPHORUS 2.5 MG/DL (2.5-4.9)
[2019-12-30] MEDS: Eliquis 2.5mg tablet ORAL SCH ×2 (08:45→18:25)
--- NOTE | 2019-12-30 08:45 | NUR ---
NURSE NOTES: LATE ENTRY: PT C/O PAIN 4/10 IN ABDOMEN, WITH MOVEMENT AND TOUCH. TYLENOL 500MG PO NG GIVEN. WILL CONTINUE TO MONITOR.
[2019-12-30] MEDS: Pantoprazole Inj IVP SCH (08:46)
--- NOTE | 2019-12-30 09:15 | NUR ---
NURSE NOTES: PT PAIN REASSESSED 0/10 IN ABDOMEN, PT COMFORTABLE. WILL CONTINUE TO MONITOR.
--- NOTE | 2019-12-30 10:11 | NUR ---
NURSE NOTES: LATE ENTRY: MD MONZON HERE TO SEE PT. WAS INFORMED OF PT NGT, CLAMPED NPO SINCE ADMISSION, TUBE FEED OR SWALLOW EVALUATION. ALHAMBRA TRANSFER IS PLANNED. PT STABLE, TRANSFER TO [facility]. RECEIVED ORDER TO TRANSFER TO [facility], PLACE BEDSIDE SWALLOW EVALUATION.
--- NOTE | 2019-12-30 10:16 | NUR ---
NURSE NOTES: LATE ENTRY: MD VALDERRAMA HERE TO SEE PT. WAS INFORMED OF PT LBS NA 148, MG 1.7. BUN/CRE IMPROVING 44/1.2. URINE OUTPUT 100ML/HR. FLIUD 1/2 NS AT 75ML/HR. WILL PLACE OWN ORDERS.
--- NOTE | 2019-12-30 10:33 | Pulmonology Progress Note ---
Subjective ROS Limited/Unobtainable: Yes Interval Events: Seen in ICU Constitutional: Denies: fever HEENT: Repors: no symptoms Respiratory: Reports: no symptoms Cardiovascular: Reports: no symptoms Gastrointestinal/Abdominal: Reports: no symptoms Genitourinary: Reports: no symptoms Allergies: Coded Allergies: PENICILLINS (Verified Allergy, Unknown, 12/27/19) Objective Last 24 Hour Vital Signs Date Time Temp Pulse Resp B/P (MAP) Pulse Ox O2 Delivery O2 Flow Rate FiO2 12/30/19 06:00 97 19 147/71 (96) 100 12/30/19 05:00 94 20 128/73 (91) 95 12/30/19 04:30 95 21 137/72 (93) 96 12/30/19 04:00 98.4 94 21 146/83 (104) 95 12/30/19 04:00 Venturi Mask 10.0 12/30/19 04:00 95 12/30/19 04:00 10.0 45 12/30/19 03:00 99 21 129/72 (91) 100 12/30/19 02:30 97 20 130/73 (92) 100 12/30/19 02:00 96 18 141/72 (95) 99 12/30/19 01:30 99 22 133/74 (93) 99 12/30/19 01:00 95 21 129/73 (91) 98 12/30/19 00:00 99 12/30/19 00:00 Venturi Mask 10.0 12/30/19 00:00 98.8 91 20 137/76 (96) 99 12/30/19 00:00 12.0 50 12/29/19 23:00 94 21 137/69 (91) 12/29/19 22:00 98 20 144/84 (104) 99 12/29/19 21:00 90 18 136/75 (95) 99 12/29/19 20:00 12.0 50 12/29/19 20:00 99 Venturi Mask 10.0 45 12/29/19 20:00 97 12/29/19 20:00 Venturi Mask 12.0 12/29/19 20:00 99.0 87 18 130/75 (93) 100 12/29/19 19:00 94 19 133/71 (91) 99 12/29/19 18:30 94 17 132/73 (92) 89 12/29/19 18:00 75 16 144/82 (102) 99 12/29/19 17:33 89 17 130/76 (94) 99 12/29/19 17:00 103 17 141/81 (101) 90 12/29/19 16:32 91 21 101/80 (87) 90 12/29/19 16:00 Venturi Mask 12.0 12/29/19 16:00 98.6 92 18 149/79 (102) 100 12/29/19 16:00 12.0 50 12/29/19 16:00 99 12/29/19 15:30 102 20 135/65 (88) 100 12/29/19 15:00 102 20 145/80 (101) 92 12/29/19 14:30 88 20 139/76 (97) 89 12/29/19 14:00 90 17 139/73 (95) 83 12/29/19 13:30 87 20 146/65 (92) 97 12/29/19 13:00 87 18 131/72 (91) 100 12/29/19 12:55 148/80 12/29/19 12:54 97 148/80 12/29/19 12:00 12.0 50 12/29/19 12:00 92 12/29/19 12:00 98.6 86 16 140/72 (94) 100 12/29/19 12:00 Venturi Mask 12.0 12/29/19 11:30 88 18 155/95 (115) 100 12/29/19 11:00 88 19 142/68 (92) 100 Intake and Output 12/29/19 12/30/19 19:00 07:00 Intake Total 1558.332 ml 750 ml Output Total 1445 ml 1210 ml Balance 113.332 ml -460 ml Intake IV Total 1378.332 ml 750 ml Other 180 ml Output Urine Total 1445 ml 1210 ml # Bowel Movements 1 6 General Appearance: no acute distress HEENT: normocephalic Respiratory: chest wall non-tender, decreased breath sounds Cardiovascular: normal peripheral pulses Abdomen: normal bowel sounds Laboratory Tests 12/30/19 04:30: White Blood Count 9.0, Red Blood Count 3.86L, Hemoglobin 11.8L, Hematocrit 36.3L , Mean Corpuscular Volume 94, Mean Corpuscular Hemoglobin 30.4, Mean Corpuscular Hemoglobin Concent 32.4, Red Cell Distribution Width 13.3, Platelet Count 113L, Mean Platelet Volume 7.8, Neutrophils (%) (Auto) , Lymphocytes (%) ( Auto) , Monocytes (%) (Auto) , Eosinophils (%) (Auto) , Basophils (%) (Auto) , Sodium Level 148H, Potassium Level 3.9, Chloride Level 114H, Carbon Dioxide Level 25, Anion Gap 9, Blood Urea Nitrogen 44H, Creatinine 1.2, Estimat Glomerular Filtration Rate > 60, Glucose Level 189H, Calcium Level 9.2, Phosphorus Level 2.5, Magnesium Level 1.7L, Total Bilirubin 1.1H, Direct Bilirubin 0.3, Aspartate Amino Transf (AST/SGOT) 21, Alanine Aminotransferase ( ALT/SGPT) 30, Alkaline Phosphatase 83, Total Protein 7.0, Albumin 3.2L, Random Vancomycin Level 4.8 Current Medications Medications (Trade) Dose Ordered Sig/Susana Route PRN Reason Start Time Stop Time Status Last Admin Dose Admin Acetaminophen (Tylenol) 500 mg Q4H PRN ORAL Mild Pain (Pain Scale 1-3) 12/27/19 07:00 01/26/20 06:59 12/30/19 08:45 Apixaban (Eliquis) 2.5 mg BID ORAL 12/27/19 10:00 03/26/20 09:59 12/30/19 08:45 Aztreonam 1 gm/ Sodium Chloride 55 ml @ 110 mls/hr Q8HR IVPB 12/29/19 14:00 01/05/20 13:59 12/30/19 05:53 Chlorhexidine Gluconate (Ally-Hex 2%) 1 applic DAILY@2000 TOPIC 12/27/19 20:00 03/26/20 19:59 12/29/19 20:17 Dextrose (Dextrose 50%) 25 ml Q30M PRN IV Hypoglycemia 12/29/19 06:30 03/28/20 06:29 Dextrose (Dextrose 50%) 50 ml Q30M PRN IV Hypoglycemia 12/29/19 06:30 03/28/20 06:29 Insulin Aspart (NovoLOG) EVERY 4 HOURS SUBQ 12/29/19 09:00 03/28/20 08:59 12/30/19 09:29 Levofloxacin 100 ml @ 100 mls/hr Q24H IVPB 12/30/19 12:30 01/06/20 12:29 Norepinephrine Bitartrate 250 ml @ 0 mls/hr Q24H IV 12/28/19 15:00 03/27/20 14:59 12/28/19 15:00 Pantoprazole (Protonix) 40 mg Q12HR IVP 12/27/19 21:00 01/27/20 08:59 12/30/19 08:46 Phenylephrine HCl 50 mg/Sodium Chloride 250 ml @ 0 mls/hr Q24H IV 12/28/19 14:30 01/27/20 14:29 Sodium Chloride 1,000 ml @ 75 mls/hr [id number] IV 12/29/19 09:00 01/28/20 08:59 12/29/19 22:47 Vancomycin HCl ([facility] pharmacy to dose) 1 ea DAILY PRN MISC Per rx protocol 12/27/19 10:30 01/26/20 10:29 Assessment/Plan Assessment/Plan Multifocal pneumonia Hypoxemic respiratory failure Toxic metabolic encephalopathy Leukocytosis Metabolic acidosis Acidemia Hyponatremia Acute on chronic renal failure Severe protein calorie malnutrition Elevated troponin, possible non-STEMI Plan IV hydration Oxygen therspy Empiric antibiotics Titrate oxygen Off pressors off IV insulin Saturating well on ventimask Arterial gases noted Monitor for aspiration OK to downgrade to step down Neville Ash MD Dec 30, 2019 10:33
--- NOTE | 2019-12-30 11:50 | NUR ---
NURSE NOTES: LATE ENTRY: MD WARE HERE TO SEE PT. WAS INFORMED OF AFIB, R -ON T'S PVC'S. ON VENTURI MASK 45%. RESTRAINTS, PT CONFUSED. NO NEW ORDERS AT THIS TIME.
--- NOTE | 2019-12-30 12:56 | Nephrology Progress Note ---
Assessment/Plan Problem List: (1) Renal failure (ARF), acute on chronic (2) Dehydration (3) Septic shock (4) Lobar pneumonia (5) Pneumonia due to COVID-19 virus (6) NSTEMI (non-ST elevated myocardial infarction) (7) Diabetes Assessment Acute renal failure Hypoxia, pneumonia due to COVID-19 Septic shock on pressors Non-STEMI [place] History of congestive heart failure History of hypertension, Diabetes mellitus History of obesity Plan December 29: Labs reviewed. Further improvement of renal parameters. Magnesium low, supplement IV ordered. Remains on Venturi mask. Okay to transfer out of ICU if approved by beauty culturist. Discussed with CHRISTINA Butts. December 28: Remains on Venturi mask. Marked improvement of renal parameters. Serum creatinine of over 9 is now down to 1.6. Electrolytes much improved. Continue per consultants. December 27: Renal parameters improving. Hemodynamically more stable. Off pressors. Continue per current management. Previously: Patient has reasonable urine output at this time Remains on pressors We will adjust IV fluid, will check chemistry panel. If the patient gets to be hemodynamically stable and no improvement in renal parameters will attempt dialysis. Discussed with family and consent for Non tunneled catheter insertion obtained Discussed with RN Per orders Subjective ROS Limited/Unobtainable: Yes Constitutional: Reports: malaise Objective Objective Last 24 Hour Vital Signs Date Time Temp Pulse Resp B/P (MAP) Pulse Ox O2 Delivery O2 Flow Rate FiO2 12/30/19 10:00 105 19 141/70 (93) 100 12/30/19 09:00 100 23 135/74 (94) 99 12/30/19 09:00 10.0 45 12/30/19 08:00 97 20 134/81 (98) 99 12/30/19 08:00 Venturi Mask 10.0 12/30/19 08:00 90 12/30/19 07:00 99.0 92 21 144/70 (94) 100 12/30/19 06:00 97 19 147/71 (96) 100 12/30/19 05:00 94 20 128/73 (91) 95 12/30/19 04:30 95 21 137/72 (93) 96 12/30/19 04:00 98.4 94 21 146/83 (104) 95 12/30/19 04:00 Venturi Mask 10.0 12/30/19 04:00 95 8/19/20 04:00 10.0 45 12/30/19 03:00 99 21 129/72 (91) 100 12/30/19 02:30 97 20 130/73 (92) 100 12/30/19 02:00 96 18 141/72 (95) 99 12/30/19 01:30 99 22 133/74 (93) 99 12/30/19 01:00 95 21 129/73 (91) 98 12/30/19 00:00 99 12/30/19 00:00 Venturi Mask 10.0 12/30/19 00:00 98.8 91 20 137/76 (96) 99 12/30/19 00:00 12.0 50 12/29/19 23:00 94 21 137/69 (91) 12/29/19 22:00 98 20 144/84 (104) 99 12/29/19 21:00 90 18 136/75 (95) 99 12/29/19 20:00 12.0 50 12/29/19 20:00 99 Venturi Mask 10.0 45 12/29/19 20:00 97 12/29/19 20:00 Venturi Mask 12.0 12/29/19 20:00 99.0 87 18 130/75 (93) 100 12/29/19 19:00 94 19 133/71 (91) 99 12/29/19 18:30 94 17 132/73 (92) 89 12/29/19 18:00 75 16 144/82 (102) 99 12/29/19 17:33 89 17 130/76 (94) 99 12/29/19 17:00 103 17 141/81 (101) 90 12/29/19 16:32 91 21 101/80 (87) 90 12/29/19 16:00 Venturi Mask 12.0 12/29/19 16:00 98.6 92 18 149/79 (102) 100 12/29/19 16:00 12.0 50 12/29/19 16:00 99 12/29/19 15:30 102 20 135/65 (88) 100 12/29/19 15:00 102 20 145/80 (101) 92 12/29/19 14:30 88 20 139/76 (97) 89 12/29/19 14:00 90 17 139/73 (95) 83 12/29/19 13:30 87 20 146/65 (92) 97 12/29/19 13:00 87 18 131/72 (91) 100 12/29/19 12:55 148/80 Intake and Output 12/29/19 12/30/19 19:00 07:00 Intake Total 1558.332 ml 780 ml Output Total 1445 ml 1320 ml Balance 113.332 ml -540 ml Intake IV Total 1378.332 ml 750 ml Other 180 ml 30 ml Output Urine Total 1445 ml 1320 ml # Bowel Movements 1 6 Current Medications Medications (Trade) Dose Ordered Sig/Susana Route PRN Reason Start Time Stop Time Status Last Admin Dose Admin Acetaminophen (Tylenol) 500 mg Q4H PRN ORAL Mild Pain (Pain Scale 1-3) 12/27/19 07:00 01/26/20 06:59 12/30/19 08:45 Apixaban (Eliquis) 2.5 mg BID ORAL 12/27/19 10:00 03/26/20 09:59 12/30/19 08:45 Aztreonam 1 gm/ Sodium Chloride 55 ml @ 110 mls/hr Q8HR IVPB 12/29/19 14:00 01/05/20 13:59 12/30/19 05:53 Chlorhexidine Gluconate (Ally-Hex 2%) 1 applic DAILY@2000 TOPIC 12/27/19 20:00 03/26/20 19:59 12/29/19 20:17 Dextrose (Dextrose 50%) 25 ml Q30M PRN IV Hypoglycemia 12/29/19 06:30 03/28/20 06:29 Dextrose (Dextrose 50%) 50 ml Q30M PRN IV Hypoglycemia 12/29/19 06:30 03/28/20 06:29 Insulin Aspart (NovoLOG) EVERY 4 HOURS SUBQ 12/29/19 09:00 03/28/20 08:59 12/30/19 09:29 Levofloxacin 100 ml @ 100 mls/hr Q24H IVPB 12/30/19 12:30 01/06/20 12:29 12/30/19 12:41 Norepinephrine Bitartrate 250 ml @ 0 mls/hr Q24H IV 12/28/19 15:00 03/27/20 14:59 12/28/19 15:00 Pantoprazole (Protonix) 40 mg Q12HR IVP 12/27/19 21:00 01/27/20 08:59 12/30/19 08:46 Phenylephrine HCl 50 mg/Sodium Chloride 250 ml @ 0 mls/hr Q24H IV 12/28/19 14:30 01/27/20 14:29 Sodium Chloride 1,000 ml @ 75 mls/hr [id number] IV 12/29/19 09:00 01/28/20 08:59 12/30/19 12:40 Vancomycin HCl ([facility] pharmacy to dose) 1 ea DAILY PRN MISC Per rx protocol 12/27/19 10:30 01/26/20 10:29 Laboratory Tests 12/30/19 04:30: White Blood Count 9.0, Red Blood Count 3.86L, Hemoglobin 11.8L, Hematocrit 36.3L , Mean Corpuscular Volume 94, Mean Corpuscular Hemoglobin 30.4, Mean Corpuscular Hemoglobin Concent 32.4, Red Cell Distribution Width 13.3, Platelet Count 113L, Mean Platelet Volume 7.8, Neutrophils (%) (Auto) , Lymphocytes (%) ( Auto) , Monocytes (%) (Auto) , Eosinophils (%) (Auto) , Basophils (%) (Auto) , Sodium Level 148H, Potassium Level 3.9, Chloride Level 114H, Carbon Dioxide Level 25, Anion Gap 9, Blood Urea Nitrogen 44H, Creatinine 1.2, Estimat Glomerular Filtration Rate > 60, Glucose Level 189H, Calcium Level 9.2, Phosphorus Level 2.5, Magnesium Level 1.7L, Total Bilirubin 1.1H, Direct Bilirubin 0.3, Aspartate Amino Transf (AST/SGOT) 21, Alanine Aminotransferase ( ALT/SGPT) 30, Alkaline Phosphatase 83, Total Protein 7.0, Albumin 3.2L, Random Vancomycin Level 4.8 Height (Feet): 5 Height (Inches): 6.00 Weight (Pounds): 246 General Appearance: no apparent distress, lethargic Cardiovascular: tachycardia Respiratory/Chest: decreased breath sounds Abdomen: distended Desmond Markham MD Dec 30, 2019 12:56
--- NOTE | 2019-12-30 13:34 | Cardiac Electrophysiology PN ---
Assessment/Plan Assessment/Plan 1. Septic shock. On iv Abx, as well as IV fluid 100 mL an hour. Off pressors 2. Resp failure on FM 14 liters 3. Troponin elevation, likely due to renal failure. Does not have any chest pain. Repeat the troponin for further evaluation. His echocardiogram showed EF of 55%. 4. DVT. On Eliquis 2.5 mg b.i.d. 5. History of recent COVID pneumonia. Rapid COVID is negative. 6. Acute renal failure, on IV fluids per Dr. Markham. Subjective Subjective Confused in restraints. Has LLE DVT on Eliquis. Off pressors . Echo Nl EF. Being transferred to contracted facility in [place] on 40% Venturi Mask Objective Last 24 Hour Vital Signs Date Time Temp Pulse Resp B/P (MAP) Pulse Ox O2 Delivery O2 Flow Rate FiO2 12/30/19 10:00 105 19 141/70 (93) 100 12/30/19 09:00 100 23 135/74 (94) 99 12/30/19 09:00 10.0 45 12/30/19 08:00 97 20 134/81 (98) 99 12/30/19 08:00 Venturi Mask 10.0 12/30/19 08:00 90 12/30/19 07:00 99.0 92 21 144/70 (94) 100 12/30/19 06:00 97 19 147/71 (96) 100 12/30/19 05:00 94 20 128/73 (91) 95 12/30/19 04:30 95 21 137/72 (93) 96 12/30/19 04:00 98.4 94 21 146/83 (104) 95 12/30/19 04:00 Venturi Mask 10.0 12/30/19 04:00 95 12/30/19 04:00 10.0 45 12/30/19 03:00 99 21 129/72 (91) 100 12/30/19 02:30 97 20 130/73 (92) 100 12/30/19 02:00 96 18 141/72 (95) 99 12/30/19 01:30 99 22 133/74 (93) 99 12/30/19 01:00 95 21 129/73 (91) 98 12/30/19 00:00 99 12/30/19 00:00 Venturi Mask 10.0 12/30/19 00:00 98.8 91 20 137/76 (96) 99 12/30/19 00:00 12.0 50 12/29/19 23:00 94 21 137/69 (91) 12/29/19 22:00 98 20 144/84 (104) 99 12/29/19 21:00 90 18 136/75 (95) 99 12/29/19 20:00 12.0 50 12/29/19 20:00 99 Venturi Mask 10.0 45 12/29/19 20:00 97 12/29/19 20:00 Venturi Mask 12.0 12/29/19 20:00 99.0 87 18 130/75 (93) 100 12/29/19 19:00 94 19 133/71 (91) 99 12/29/19 18:30 94 17 132/73 (92) 89 12/29/19 18:00 75 16 144/82 (102) 99 12/29/19 17:33 89 17 130/76 (94) 99 12/29/19 17:00 103 17 141/81 (101) 90 12/29/19 16:32 91 21 101/80 (87) 90 12/29/19 16:00 Venturi Mask 12.0 12/29/19 16:00 98.6 92 18 149/79 (102) 100 12/29/19 16:00 12.0 50 12/29/19 16:00 99 12/29/19 15:30 102 20 135/65 (88) 100 12/29/19 15:00 102 20 145/80 (101) 92 12/29/19 14:30 88 20 139/76 (97) 89 12/29/19 14:00 90 17 139/73 (95) 83 Intake and Output 12/29/19 12/30/19 19:00 07:00 Intake Total 1558.332 ml 780 ml Output Total 1445 ml 1320 ml Balance 113.332 ml -540 ml Intake IV Total 1378.332 ml 750 ml Other 180 ml 30 ml Output Urine Total 1445 ml 1320 ml # Bowel Movements 1 6 Laboratory Tests Test 12/30/19 04:30 White Blood Count 9.0 K/UL (4.8-10.8) Red Blood Count 3.86 M/UL (4.70-6.10) L Hemoglobin 11.8 G/DL (14.2-18.0) L Hematocrit 36.3 % (42.0-52.0) L Mean Corpuscular Volume 94 FL (80-99) Mean Corpuscular Hemoglobin 30.4 PG (27.0-31.0) Mean Corpuscular Hemoglobin Concent 32.4 G/DL (32.0-36.0) Red Cell Distribution Width 13.3 % (11.6-14.8) Platelet Count 113 K/UL (150-450) L Mean Platelet Volume 7.8 FL (6.5-10.1) Neutrophils (%) (Auto) % (45.0-75.0) Lymphocytes (%) (Auto) % (20.0-45.0) Monocytes (%) (Auto) % (1.0-10.0) Eosinophils (%) (Auto) % (0.0-3.0) Basophils (%) (Auto) % (0.0-2.0) Sodium Level 148 MMOL/L (136-145) H Potassium Level 3.9 MMOL/L (3.5-5.1) Chloride Level 114 MMOL/L (98-107) H Carbon Dioxide Level 25 MMOL/L (21-32) Anion Gap 9 mmol/L (5-15) Blood Urea Nitrogen 44 mg/dL (7-18) H Creatinine 1.2 MG/DL (0.55-1.30) Estimat Glomerular Filtration Rate > 60 mL/min (>60) Glucose Level 189 MG/DL (74-106) H Calcium Level 9.2 MG/DL (8.5-10.1) Phosphorus Level 2.5 MG/DL (2.5-4.9) Magnesium Level 1.7 MG/DL (1.8-2.4) L Total Bilirubin 1.1 MG/DL (0.2-1.0) H Direct Bilirubin 0.3 MG/DL (0.0-0.3) Aspartate Amino Transf (AST/SGOT) 21 U/L (15-37) Alanine Aminotransferase (ALT/SGPT) 30 U/L (12-78) Alkaline Phosphatase 83 U/L (46-116) Total Protein 7.0 G/DL (6.4-8.2) Albumin 3.2 G/DL (3.4-5.0) L Random Vancomycin Level 4.8 ug/mL Objective HEAD AND NECK: Shows mild JVD. LUNGS: Coarse rhonchi. CARDIOVASCULAR: Shows tachycardic S1 and S2 with no gallop. ABDOMEN: Soft. EXTREMITIES: No pitting edema. Agustin Morales MD Dec 30, 2019 13:34
--- NOTE | 2019-12-30 13:35 | NUR ---
NURSE NOTES: LATE ENTRY: SPEECH THERAPIST HERE TO SEE PT. CALLED R.T TO PLACE PT ON NC. NGT SECURED. ORAL CARE PROVIDED. PT VERY RESISTIVE. DISORIENTED WITH MOUTH SORENESS. DRY BLOOD AND MUCOSA NOTED. HOB 45. PT SATING 93%. RESTRAINTS IN PLACE.
[2019-12-30] MEDS: NS IV SCH (14:15)
[2019-12-30] MEDS: Norepinephrine Premix 4mg/NS 250mL IV SCH (14:15)
[2019-12-30] MEDS: PHENYLEPHRINE IV SCH (14:15)
--- NOTE | 2019-12-30 14:40 | Infectious Diseases Prog Note ---
Assessment/Plan Assessment/Plan IMPRESSION: 1. Severe sepsis with septic shock improving 2. Pneumonia. 3. Pseudomonas UTI. 4. Acute renal failure. 5. Hypoxemic respiratory failure. 6. Diabetes with hyperglycemia 7. Hypertension. 8. Acidosis. 9. Obesity. 9. Positive blood culture, likely contamination 10. DVT of left leg 11. MRSA carrier 12. Uretheral discharge RECOMMENDATION: Discontinue vancomycin and Azactam Continue Levaquin Urine for Gonorrhea & Chlamydia Clotrimazole application to feet Subjective ROS Limited/Unobtainable: Yes Constitutional: Denies: fever Genitourinary: Reports: other - uretheral discharge Neurologic: Reports: confusion, other - on restraint Allergies: Coded Allergies: PENICILLINS (Verified Allergy, Unknown, 12/27/19) Objective Last 24 Hour Vital Signs Date Time Temp Pulse Resp B/P (MAP) Pulse Ox O2 Delivery O2 Flow Rate FiO2 12/30/19 13:00 84 18 136/64 (88) 100 12/30/19 12:00 99.1 94 20 139/72 (94) 100 12/30/19 12:00 102 12/30/19 12:00 Nasal Cannula 4.0 12/30/19 12:00 4.0 12/30/19 11:00 84 20 149/65 (93) 100 12/30/19 10:00 105 19 141/70 (93) 100 12/30/19 09:00 100 23 135/74 (94) 99 12/30/19 09:00 10.0 45 12/30/19 08:00 97 20 134/81 (98) 99 12/30/19 08:00 Venturi Mask 10.0 12/30/19 08:00 90 12/30/19 07:00 99.0 92 21 144/70 (94) 100 12/30/19 06:00 97 19 147/71 (96) 100 12/30/19 05:00 94 20 128/73 (91) 95 12/30/19 04:30 95 21 137/72 (93) 96 12/30/19 04:00 98.4 94 21 146/83 (104) 95 12/30/19 04:00 Venturi Mask 10.0 12/30/19 04:00 95 12/30/19 04:00 10.0 45 12/30/19 03:00 99 21 129/72 (91) 100 12/30/19 02:30 97 20 130/73 (92) 100 12/30/19 02:00 96 18 141/72 (95) 99 12/30/19 01:30 99 22 133/74 (93) 99 12/30/19 01:00 95 21 129/73 (91) 98 12/30/19 00:00 99 12/30/19 00:00 Venturi Mask 10.0 12/30/19 00:00 98.8 91 20 137/76 (96) 99 12/30/19 00:00 12.0 50 12/29/19 23:00 94 21 137/69 (91) 12/29/19 22:00 98 20 144/84 (104) 99 12/29/19 21:00 90 18 136/75 (95) 99 12/29/19 20:00 12.0 50 12/29/19 20:00 99 Venturi Mask 10.0 45 12/29/19 20:00 97 12/29/19 20:00 Venturi Mask 12.0 12/29/19 20:00 99.0 87 18 130/75 (93) 100 12/29/19 19:00 94 19 133/71 (91) 99 12/29/19 18:30 94 17 132/73 (92) 89 12/29/19 18:00 75 16 144/82 (102) 99 12/29/19 17:33 89 17 130/76 (94) 99 12/29/19 17:00 103 17 141/81 (101) 90 12/29/19 16:32 91 21 101/80 (87) 90 12/29/19 16:00 Venturi Mask 12.0 12/29/19 16:00 98.6 92 18 149/79 (102) 100 12/29/19 16:00 12.0 50 12/29/19 16:00 99 12/29/19 15:30 102 20 135/65 (88) 100 12/29/19 15:00 102 20 145/80 (101) 92 Height (Feet): 5 Height (Inches): 6.00 Weight (Pounds): 246 General Appearance: no acute distress HEENT: mucous membranes moist Respiratory/Chest: lungs clear Cardiovascular: normal rate Abdomen: soft, non tender - NG tube Genitourinary: other - Parker catheter Neurologic/Psychiatric: other - sleeping Laboratory Tests Test 12/30/19 04:30 White Blood Count 9.0 K/UL (4.8-10.8) Red Blood Count 3.86 M/UL (4.70-6.10) L Hemoglobin 11.8 G/DL (14.2-18.0) L Hematocrit 36.3 % (42.0-52.0) L Mean Corpuscular Volume 94 FL (80-99) Mean Corpuscular Hemoglobin 30.4 PG (27.0-31.0) Mean Corpuscular Hemoglobin Concent 32.4 G/DL (32.0-36.0) Red Cell Distribution Width 13.3 % (11.6-14.8) Platelet Count 113 K/UL (150-450) L Mean Platelet Volume 7.8 FL (6.5-10.1) Neutrophils (%) (Auto) % (45.0-75.0) Lymphocytes (%) (Auto) % (20.0-45.0) Monocytes (%) (Auto) % (1.0-10.0) Eosinophils (%) (Auto) % (0.0-3.0) Basophils (%) (Auto) % (0.0-2.0) Sodium Level 148 MMOL/L (136-145) H Potassium Level 3.9 MMOL/L (3.5-5.1) Chloride Level 114 MMOL/L (98-107) H Carbon Dioxide Level 25 MMOL/L (21-32) Anion Gap 9 mmol/L (5-15) Blood Urea Nitrogen 44 mg/dL (7-18) H Creatinine 1.2 MG/DL (0.55-1.30) Estimat Glomerular Filtration Rate > 60 mL/min (>60) Glucose Level 189 MG/DL (74-106) H Calcium Level 9.2 MG/DL (8.5-10.1) Phosphorus Level 2.5 MG/DL (2.5-4.9) Magnesium Level 1.7 MG/DL (1.8-2.4) L Total Bilirubin 1.1 MG/DL (0.2-1.0) H Direct Bilirubin 0.3 MG/DL (0.0-0.3) Aspartate Amino Transf (AST/SGOT) 21 U/L (15-37) Alanine Aminotransferase (ALT/SGPT) 30 U/L (12-78) Alkaline Phosphatase 83 U/L (46-116) Total Protein 7.0 G/DL (6.4-8.2) Albumin 3.2 G/DL (3.4-5.0) L Random Vancomycin Level 4.8 ug/mL Current Medications Medications (Trade) Dose Ordered Sig/Susana Route PRN Reason Start Time Stop Time Status Last Admin Dose Admin Acetaminophen (Tylenol) 500 mg Q4H PRN ORAL Mild Pain (Pain Scale 1-3) 12/27/19 07:00 01/26/20 06:59 12/30/19 08:45 Apixaban (Eliquis) 2.5 mg BID ORAL 12/27/19 10:00 03/26/20 09:59 12/30/19 08:45 Aztreonam 1 gm/ Sodium Chloride 55 ml @ 110 mls/hr Q8HR IVPB 12/29/19 14:00 01/05/20 13:59 12/30/19 14:15 Chlorhexidine Gluconate (Ally-Hex 2%) 1 applic DAILY@2000 TOPIC 12/27/19 20:00 03/26/20 19:59 12/29/19 20:17 Dextrose (Dextrose 50%) 25 ml Q30M PRN IV Hypoglycemia 12/29/19 06:30 03/28/20 06:29 Dextrose (Dextrose 50%) 50 ml Q30M PRN IV Hypoglycemia 12/29/19 06:30 03/28/20 06:29 Insulin Aspart (NovoLOG) EVERY 4 HOURS SUBQ 12/29/19 09:00 03/28/20 08:59 12/30/19 13:02 Levofloxacin 100 ml @ 100 mls/hr Q24H IVPB 12/30/19 12:30 01/06/20 12:29 12/30/19 12:41 Magnesium Sulfate 100 ml @ 100 mls/hr Q1H IVPB 12/30/19 13:00 12/30/19 14:59 12/30/19 14:15 Norepinephrine Bitartrate 250 ml @ 0 mls/hr Q24H IV 12/28/19 15:00 03/27/20 14:59 12/28/19 15:00 Pantoprazole (Protonix) 40 mg Q12HR IVP 12/27/19 21:00 01/27/20 08:59 12/30/19 08:46 Phenylephrine HCl 50 mg/Sodium Chloride 250 ml @ 0 mls/hr Q24H IV 12/28/19 14:30 01/27/20 14:29 Sodium Chloride 1,000 ml @ 75 mls/hr [id number] IV 12/29/19 09:00 01/28/20 08:59 12/30/19 12:40 [facility] 1 ea DAILY PRN MISC Per rx protocol 12/27/19 10:30 01/26/20 10:29 Claudy Acuna MD Dec 30, 2019 14:40
--- NOTE | 2019-12-30 14:42 | NUR ---
NURSE NOTES: LATE ENTRY: MD. Ayala RUELAS HERE TO SEE PT. WAS INFORMED PT CONFUSED, BULGARIAN SPEAKING,LOW GRADE FEVER AT 99.1, NOTED PENILE DISCHARGE, THIN, WHITE, PT C/O OF DISCOMFORT WITH MANIPULATION. WBC 9. DRY SKIN ON BILATERAL FEET. MD WILL PLACE ORDERS.
--- NOTE | 2019-12-30 14:52 | Surgery Progress Note ---
Surgery Progress Note Subjective Symptoms: improved Additional Comments extubated on face mask more comfortable no n/v Objective Last 24 Hour Vital Signs Date Time Temp Pulse Resp B/P (MAP) Pulse Ox O2 Delivery O2 Flow Rate FiO2 12/30/19 13:00 84 18 136/64 (88) 100 12/30/19 12:00 99.1 94 20 139/72 (94) 100 12/30/19 12:00 102 12/30/19 12:00 Nasal Cannula 4.0 12/30/19 12:00 4.0 12/30/19 11:00 84 20 149/65 (93) 100 12/30/19 10:00 105 19 141/70 (93) 100 12/30/19 09:00 100 23 135/74 (94) 99 12/30/19 09:00 10.0 45 12/30/19 08:00 97 20 134/81 (98) 99 12/30/19 08:00 Venturi Mask 10.0 12/30/19 08:00 90 12/30/19 07:00 99.0 92 21 144/70 (94) 100 12/30/19 06:00 97 19 147/71 (96) 100 12/30/19 05:00 94 20 128/73 (91) 95 12/30/19 04:30 95 21 137/72 (93) 96 12/30/19 04:00 98.4 94 21 146/83 (104) 95 12/30/19 04:00 Venturi Mask 10.0 12/30/19 04:00 95 12/30/19 04:00 10.0 45 12/30/19 03:00 99 21 129/72 (91) 100 12/30/19 02:30 97 20 130/73 (92) 100 12/30/19 02:00 96 18 141/72 (95) 99 12/30/19 01:30 99 22 133/74 (93) 99 12/30/19 01:00 95 21 129/73 (91) 98 12/30/19 00:00 99 12/30/19 00:00 Venturi Mask 10.0 12/30/19 00:00 98.8 91 20 137/76 (96) 99 12/30/19 00:00 12.0 50 12/29/19 23:00 94 21 137/69 (91) 12/29/19 22:00 98 20 144/84 (104) 99 12/29/19 21:00 90 18 136/75 (95) 99 12/29/19 20:00 12.0 50 12/29/19 20:00 99 Venturi Mask 10.0 45 12/29/19 20:00 97 12/29/19 20:00 Venturi Mask 12.0 12/29/19 20:00 99.0 87 18 130/75 (93) 100 12/29/19 19:00 94 19 133/71 (91) 99 12/29/19 18:30 94 17 132/73 (92) 89 12/29/19 18:00 75 16 144/82 (102) 99 12/29/19 17:33 89 17 130/76 (94) 99 12/29/19 17:00 103 17 141/81 (101) 90 12/29/19 16:32 91 21 101/80 (87) 90 12/29/19 16:00 Venturi Mask 12.0 12/29/19 16:00 98.6 92 18 149/79 (102) 100 12/29/19 16:00 12.0 50 12/29/19 16:00 99 12/29/19 15:30 102 20 135/65 (88) 100 12/29/19 15:00 102 20 145/80 (101) 92 I&O Intake and Output 12/29/19 12/30/19 19:00 07:00 Intake Total 1558.332 ml 855 ml Output Total 1445 ml 1320 ml Balance 113.332 ml -465 ml Intake IV Total 1378.332 ml 825 ml Other 180 ml 30 ml Output Urine Total 1445 ml 1320 ml # Bowel Movements 1 6 Cardiovascular: RSR Respiratory: decreased breath sounds Abdomen: soft, non-tender, present bowel sounds Extremities: no cyanosis Laboratory Tests Test 12/30/19 04:30 White Blood Count 9.0 K/UL (4.8-10.8) Red Blood Count 3.86 M/UL (4.70-6.10) L Hemoglobin 11.8 G/DL (14.2-18.0) L Hematocrit 36.3 % (42.0-52.0) L Mean Corpuscular Volume 94 FL (80-99) Mean Corpuscular Hemoglobin 30.4 PG (27.0-31.0) Mean Corpuscular Hemoglobin Concent 32.4 G/DL (32.0-36.0) Red Cell Distribution Width 13.3 % (11.6-14.8) Platelet Count 113 K/UL (150-450) L Mean Platelet Volume 7.8 FL (6.5-10.1) Neutrophils (%) (Auto) % (45.0-75.0) Lymphocytes (%) (Auto) % (20.0-45.0) Monocytes (%) (Auto) % (1.0-10.0) Eosinophils (%) (Auto) % (0.0-3.0) Basophils (%) (Auto) % (0.0-2.0) Sodium Level 148 MMOL/L (136-145) H Potassium Level 3.9 MMOL/L (3.5-5.1) Chloride Level 114 MMOL/L (98-107) H Carbon Dioxide Level 25 MMOL/L (21-32) Anion Gap 9 mmol/L (5-15) Blood Urea Nitrogen 44 mg/dL (7-18) H Creatinine 1.2 MG/DL (0.55-1.30) Estimat Glomerular Filtration Rate > 60 mL/min (>60) Glucose Level 189 MG/DL (74-106) H Calcium Level 9.2 MG/DL (8.5-10.1) Phosphorus Level 2.5 MG/DL (2.5-4.9) Magnesium Level 1.7 MG/DL (1.8-2.4) L Total Bilirubin 1.1 MG/DL (0.2-1.0) H Direct Bilirubin 0.3 MG/DL (0.0-0.3) Aspartate Amino Transf (AST/SGOT) 21 U/L (15-37) Alanine Aminotransferase (ALT/SGPT) 30 U/L (12-78) Alkaline Phosphatase 83 U/L (46-116) Total Protein 7.0 G/DL (6.4-8.2) Albumin 3.2 G/DL (3.4-5.0) L Random Vancomycin Level 4.8 ug/mL Plan Problems: (1) Septic shock Assessment & Plan: 64M septic shock respiratory insufficiency, leukocytosis, abnormal labs, acute renal insufficiency. uop 50cc/hr currently on pressors in critical condition patient may need HD soon but currently too unstable on pressors to tolerate HD discussed with renal and nursing staff hold on HD line until more stable to receive HD consent obtained from family will monitor closely thank you trend labs wean pressors respiratory support improved with hydration monitor labs hld HD Right IJ central venous catheter terminates in the superior vena cava. Patchy airspace opacity throughout the left lower lung field, consistent with infiltrate. Follow-up chest radiograph recommended. No pleural effusion or pneumothorax. (2) Lobar pneumonia (3) Diabetes (4) CHF (congestive heart failure) (5) Hyponatremia (6) Renal failure (7) Obesity (8) HTN (hypertension) (9) HLD (hyperlipidemia) (10) NSTEMI (non-ST elevated myocardial infarction) (11) Sepsis with acute hypoxic respiratory failure (12) Pneumonia due to COVID-19 virus Collins Ford Dec 30, 2019 14:52
[2019-12-30] MEDS ORDERED: NS 275ml ONE (15:56)
--- NOTE | 2019-12-30 16:17 | NUR ---
SWALLOW EVAL REPORT: SWALLOW EVALUATION. PATIENT REFERRED TO [facility] BY DR. MONZON. DYSPHAGIA RISK FACTORS FOR THIS 64 Y.O. SURINAMESE SPEAKING MALE: ACUTE: PNA due to COVID-19, Acute renal failure, HLD, Septic Shock, lobar PNA, HTN, NSTEMI, sepsis with acute hypoxic respiratory failure, dehydration, Pseudomonas UTI, acidosis, MRSA carrier, DVT of left leg. H/O: NIDDM, GERD, hypertension, hyperlipidemia, obesity, renal failure, CHF, COVID, non-STEMI. VITALS ON 4 L NASAL CANNULA: HR: 94; RR: 23; SP02: 91% to 95% Pt was initially on venturi mask 10L, FI02 45%. RT changed Pt to nasal cannula in order to facilitate completion of swallow evaluation. RELEVANT MEDS: Protonix (GERD). PER RN: Pt is slightly sleepy, is NPO with NGT. Pt seen at bedside, presenting with significantly poor oral hygiene with large pieces of dried blood stuck to Pt's floor of mouth and dried debris seen on lips and throughout oral cavity. NANNY CAREGIVER provided Pt oral care/hygiene, Pt was unable to maintain opened eyes despite NANNY CAREGIVER verbal cues. Pt's speech with poor intelligibility with moderately impaired ability to communicate wants and needs. Pt was able to follow simple 1 and 2 step verbal commands with max and re-current verbal cues. INITIAL IMPRESSIONS: Moderate oropharyngeal dysphagia with aspiration signs and symptoms significant by weak cough, increasingly wet vocal quality, and increased respiratory rate with poor oral motor coordination/initiation with PO trial in Pt's oral cavity, poor and inconsistent labial seal, suspect posterior premature spillage, laryngeal elevation not well appreciated upon palpation and incomplete in elevation. Aspiration signs and symptoms with PO trials of thin liquids and nectar thick liquids. Pt is not safe for PO intake at this time. PATIENT IS A HIGH RISK FOR ASPIRATION GIVEN POOR BREATHING-SWALLOWING COORDINATION COMPOUNDED BY ACUTE HYPOXIC RESPIRATORY FAILURE AND PNA. RECOMMENDATIONS: 1. Continue NPO for meds, nutrition, hydration. 2. NANNY CAREGIVER will f/u tomorrow for ongoing assessment of Pt's swallowing function and safety. 3. NURSING PLEASE PROVIDE THOROUGH ORAL CARE TID. Made RN aware of results and recommendations, NANNY CAREGIVER plans to f/u per POC. Thank you for this referral.
--- NOTE | 2019-12-30 17:37 | NUR ---
NURSE NOTES: Dr. Ash notified ,patient going to [facility]
--- NOTE | 2019-12-30 18:00 | NUR ---
NURSE NOTES: LATE ENTRY: CREAM CLOTRIMAZOLE 1% APPLIED TO BILATERAL FEET. PT C/O OF BURNING. FEET DRY AND CRACKING, MILD SKIN PEELING AND DISCOLORATION OF LEFT FOOT, RIGHT BIG TOE NAIL. U.A COLLECTED.
--- NOTE | 2019-12-30 19:30 | NUR ---
NURSE NOTES: Received report from Beckie RN,. Pt will be transferee to [facility] via [facility] Pt AO x 1, disorientated and Algerian speaker. Controlled A-fib on geological aide NC 4L, Left nares NGT clamped Parker CDI, Skin is intact. RIJ TLC rinning 1/2 NS at 75mL/hr. Bilateral Soft restrain noted, Safety measures observed. Will continue to monitor.
--- NOTE | 2019-12-30 19:50 | NUR ---
HAND-OFF: Report given to SOPHIE Muñoz HANDOUT REPORT [facility].
--- NOTE | 2019-12-30 20:51 | NUR ---
NURSE NOTES: Transferred to [facility]. Afebrile and VSS: Temp 98.7, BP 158/83, HR 88, RR 21, SpO2 95% SKYLA, ROSALBA, and mirza are all CDI Controlled A-fib on cardiac rehabilitation program director. Safety measures observed.
[2019-12-30] MEDS ORDERED: 1/2 NS 1000ml IV ONE (20:58)
--- NOTE | 2019-12-30 21:20 | NUR ---
NURSE NOTES: Notified Yael ([phone]), family member in regarding to transfer to [facility]. Questions are answered and phone number and address of [facility] given.
--- NOTE | 2019-12-31 16:50 | Discharge Summary ---
Discharge Summary Discharge Summary _ DATE OF ADMISSION: 12/27/2019 DATE OF DISCHARGE: [] 8 12/30/2019 DISCHARGED BY: Dr. Ordaz REASON FOR ADMISSION: [] 64 years old male with past medical history of insulin-dependent diabetes mellitus, hypertension, lower extremity DVT, currently on Eliquis, was brought by ambulance from the half-way facility due to hypotension and hypoxia. Apparently initial blood pressure was 59/32. Hypoxic saturating 80% on room air. Upon arrival by by mural artist patient was placed on monitored nonrebreathing mask with bolus with improvement blood pressure. Patient was altered according to paramedics patient was recently diagnosed with COVID pneumonia at [facility]. Symptoms were of moderate severity and lasted for the last 2 weeks. Upon evaluation laboratory work-up revealed leukocytosis WBC 16, stable hemoglobin hematocrit and platelet count. ABG 100% nonrebreather mask revealed mild acidosis pH 7.29 no hypercapnia sat was 98%. Chemistry demonstrated sodium 130 BUN 176, creatinine 9.6. Glucose 184. Phosphorus 9.1, magnesium 2.9. Total bilirubin 1.1 direct bilirubin 0.5. proBNP 1921, troponin 0 0.079. Urinalysis revealed pyuria moderate bacteria +1 leukocyte esterase +1 protein. Chest x-ray demonstrated patchy bilateral airspace opacity concerning for pneumonia. Patient undergone placement of right internal jugular central placement for possible pressors. Chest x-ray confirmed placement COVID-19 in emergency department was negative. CONSULTANTS: junior architect Dr. Ibanez Barber Apprentice Dr. Yen neurologist pulmonary Dr. Ash ID specialist Dr. Alejandro Esparza GI specialist farm advisor Dr. Markham director property/oncologist surgery Dr. Ford psychiatrist HOSPITAL COURSE: [] Patient admitted to ICU. Patient initially was on pressors patient was hydrated renal parameters electrolytes were closely monitor electrolytes corrected as needed and nephrotoxic's were avoided. Venous duplex bilateral lower extremity was positive for left femoral-popliteal venous acute DVT. Troponin trended. Second troponin was small from initial 0.079-0.1. Elevated troponin was most likely due to renal failure as per junior architect.. Echocardiogram revealed normal left ventricular chamber size, systolic function and wall motion to the extent visualized. Blood culture revealed gram-positive cocci and staph hominis epidermidis. Urine culture revealed pseudomonas aeruginosa. Antibiotics provided as per ID specialist recommendation Leukocytosis resolved. No fevers. Patient was hydrated. Renal parameters electrolytes were closely monitored electrolytes corrected as needed nephrotoxic's were avoided. Sodium hyponatremia resolved. BUN from 176 down to 44 creatinine from 9.6 down to 1.2. Acute kidney injury resolved was likely due to severe dehydration Supplemental oxygen provided and titrated to keep pulse oximetry above 92%. Pulmonary toilet provided. Prior to transfer patient was able to be weaned from high Nonrebreathing mask to Venturi mask. As patient clinically improved he was able to wean from pressor as well as down titrated on supplemental oxygen. Blood sugar was managed as per mold swabber recommendation with sliding scale of high-dose insulin every 4 hours. Hemoglobin A1c 8.7. Diabetic diet provided. TSH noted to be low free T4 and T3 were ordered no need for thyroid replacement at this time. FINAL DIAGNOSES: Severe sepsis with septic shock Multifocal pneumonia Pseudomonas UTI Acute hypoxemic respiratory failure Troponin elevation Possible NSTEMI Toxic metabolic encephalopathy Acute DVT left leg History of recent COVID pneumonia Acute on chronic renal failure Hyponatremia-resolved Dehydration Diabetes mellitus with hyperglycemia History of hypertension Obesity Metabolic acidosis Severe protein calorie malnutrition DISCHARGE MEDICATIONS: List of medication was sent to accepting facility DISCHARGE INSTRUCTIONS: Patient was discharged to [facility] I have been assigned to dictate discharge summary for this account. I was not involved in the patient's management. Constance Bacon NP Dec 31, 2019 16:50
== END 2019-12-30 20:40 | DRG 720 ==
LOC: EDBD 03:55 → EMR 04:19 → EDBEDREQ 04:34 → ICU 05:15 → EDBEDREQ 05:25
DX: A41.9 Sepsis, unspecified organism (principal); R65.21 Severe sepsis with septic shock; U07.1 COVID-19; J12.89 Other viral pneumonia; J96.01 Acute respiratory failure with hypoxia; G92 Toxic encephalopathy; N17.9 Acute kidney failure, unspecified; N39.0 Urinary tract infection, site not specified; B96.5 Pseudomonas (aeruginosa) (mallei) (pseudomallei) as the cause of diseases classified elsewhere; I21.4 Non-ST elevation (NSTEMI) myocardial infarction; I82.402 Acute embolism and thrombosis of unspecified deep veins of left lower extremity; E11.22 Type 2 diabetes mellitus with diabetic chronic kidney disease; N18.9 Chronic kidney disease, unspecified; E87.1 Hypo-osmolality and hyponatremia; E86.0 Dehydration; E11.65 Type 2 diabetes mellitus with hyperglycemia; E66.9 Obesity, unspecified; E46 Unspecified protein-calorie malnutrition; Z79.4 Long term (current) use of insulin; Z79.01 Long term (current) use of anticoagulants; Z88.0 Allergy status to penicillin; I13.0 Hypertensive heart and chronic kidney disease with heart failure and stage 1 through stage 4 chronic kidney disease, or unspecified chronic kidney disease; I50.9 Heart failure, unspecified; Z22.322 Carrier or suspected carrier of Methicillin resistant Staphylococcus aureus; E78.5 Hyperlipidemia, unspecified
CPT/HCPCS: 36415; 36600; 71045; 74018; 80048; 80053; 80061; 80076; 80202; 81003; 82248; 82803; 82962; 82977; 83036; 83605; 83615; 83690; 83735; 83880; 84100; 84300; 84443; 84484; 84550; 85007; 85025; 85610; 85730; 86140; 86850; 86900; 86901; 87040; 87081; 87086; 87181; 87491; 87590; 89050; 92610; 93005; 93306; 93970; 96365; 96368; 99291; 99292; J1815; J2370; J7030; U0002